=== PATIENT | female | born 1940 | race Caucasian/White ===

== ENCOUNTER → 2017-04-26 | Outpatient (CLI) | payer MEDICARE, OTHER ==
[2017-04-26 12:08] LABS: Basophils # (auto) 0.1 uL; Basophils % (auto) 1.1 % (0.0-2.0); Eosinophils # (auto) 0.2 uL; Eosinophils % (auto) 3.8 % (0.0-7.0); Hematocrit 40.3 % (36.0-46.0); Hemoglobin 13.8 g/dL (12.2-16.2); Lymphocytes # (auto) 1.2 uL; Mean Corpuscular Hemoglobin 32.1 pg (28.0-32.0); Mean Corpuscular Hgb Conc. 34.1 g/dL (32.0-36.0); Mean Corpuscular Volume 93.9 fL (80.0-100.0); Monocytes # (auto) 0.4 uL; Monocytes % (auto) 6.2 % (0.0-12.0); Neutrophils # (auto) 4.1 uL; Neutrophils % (auto) 68.9 % (37.0-80.0); Platelet Count (auto) 137 10^3/uL (140-450); Red Cell Distribution Width 13.3 % (11.8-14.3)
[2017-04-26 12:23] LABS: Albumin 4.2 g/dL (3.4-5.0); BUN/Creatinine Ratio 11.9; Bilirubin, Total 1.2 mg/dL (0.2-1.0); Calcium 9.3 mg/dL (8.5-10.1); Potassium 3.2 mmol/L (3.5-5.1); Total Protein 7.7 g/dL (6.4-8.2)
== END | disposition home or self-care (01) ==
LOC: LAB 10:49
PROVIDERS: ATTEND Internal Medicine
DX: E10.9 Type 1 diabetes mellitus without complications (principal); I10 Essential (primary) hypertension
CPT/HCPCS: 36415; 80053; 80061; 82043; 82607; 83036; 84439; 84443; 85025; 85652

== ENCOUNTER → 2017-11-30 | Outpatient (CLI) | payer MEDICARE, OTHER ==
[2017-11-30 15:13] LABS: Basophils # (auto) 0.1 uL; Basophils % (auto) 0.9 % (0.0-2.0); Eosinophils # (auto) 0.1 uL; Eosinophils % (auto) 1.5 % (0.0-7.0); Hematocrit 38.9 % (36.0-46.0); Hemoglobin 13.5 g/dL (12.2-16.2); Lymphocytes # (auto) 1.1 uL; Lymphocytes % (auto) 12.6 % (10.0-50.0); Mean Corpuscular Hemoglobin 32.7 pg (28.0-32.0); Mean Corpuscular Hgb Conc. 34.6 g/dL (32.0-36.0); Mean Corpuscular Volume 94.3 fL (80.0-100.0); Monocytes # (auto) 0.4 uL; Monocytes % (auto) 4.7 % (0.0-12.0); Neutrophils # (auto) 6.8 uL; Neutrophils % (auto) 80.3 % (37.0-80.0); Nucleated Red Blood Cells % 0.1 %; Platelet Count (auto) 148 10^3/uL (140-450); Red Blood Cells 4.13 10^6/uL (4.0-5.20); Red Cell Distribution Width 14.5 % (11.8-14.3); White Blood Cell 8.5 10^3/uL (4.4-10.8)
[2017-11-30 15:35] LABS: Albumin 3.9 g/dL (3.4-5.0); BUN/Creatinine Ratio 11.6; Bilirubin, Total 0.7 mg/dL (0.2-1.0); Calcium 7.9 mg/dL (8.5-10.1); Potassium 3.8 mmol/L (3.5-5.1); Total Protein 7.2 g/dL (6.4-8.2)
== END | disposition home or self-care (01) ==
LOC: LAB 14:41
PROVIDERS: ATTEND Internal Medicine
DX: K21.9 Gastro-esophageal reflux disease without esophagitis (principal); E11.22 Type 2 diabetes mellitus with diabetic chronic kidney disease; N18.3 Chronic kidney disease, stage 3 (moderate)
CPT/HCPCS: 36415; 80053; 83036; 84439; 84443; 85025

== ENCOUNTER → 2018-05-09 | Outpatient (CLI) | payer MEDICARE, OTHER ==
[2018-05-09 11:08] LABS: Basophils # (auto) 0.1 uL; Basophils % (auto) 1.3 % (0.0-2.0); Eosinophils # (auto) 0.1 uL; Eosinophils % (auto) 2.9 % (0.0-7.0); Lymphocytes # (auto) 1.1 uL; Lymphocytes % (auto) 28.1 % (10.0-50.0); Mean Corpuscular Hgb Conc. 33.2 g/dL (32.0-36.0); Mean Corpuscular Volume 93.4 fL (80.0-100.0); Monocytes # (auto) 0.3 uL; Monocytes % (auto) 7.6 % (0.0-12.0); Neutrophils # (auto) 2.4 uL; Neutrophils % (auto) 60.1 % (37.0-80.0); Platelet Count (auto) 141 10^3/uL (140-450); Red Cell Distribution Width 14.5 % (11.8-14.3); White Blood Cell 4.1 10^3/uL (4.4-10.8)
[2018-05-09 11:34] LABS: Albumin 4.1 g/dL (3.4-5.0); Potassium 3.9 mmol/L (3.5-5.1)
[2018-05-09 11:35] LABS: Urine Bacteria MOD /hpf (None Seen); Urine Blood Negative /uL (Negative); Urine WBC 10 /hpf (0 - 5)
[2018-05-09 11:38] LABS: BUN/Creatinine Ratio 13.6; Bilirubin, Total 0.8 mg/dL (0.2-1.0); Total Protein 7.4 g/dL (6.4-8.2)
[2018-05-09 11:42] LABS: Free T4 (Free Thyroxine) 1.45 ng/dL (0.89-1.76)
== END | disposition home or self-care (01) ==
LOC: LAB 10:07
PROVIDERS: ATTEND Internal Medicine
DX: E11.40 Type 2 diabetes mellitus with diabetic neuropathy, unspecified (principal)
CPT/HCPCS: 36415; 80053; 80061; 81001; 82043; 82607; 83036; 84439; 84443; 85025; 85652

== ENCOUNTER → 2018-09-11 | Outpatient (CLI) | payer MEDICARE, OTHER ==
[2018-09-11 12:49] LABS: Albumin 4.1 g/dL (3.4-5.0); Calcium 8.9 mg/dL (8.5-10.1); Potassium 4.2 mmol/L (3.5-5.1)
[2018-09-11 12:52] LABS: BUN/Creatinine Ratio 13.8; Total Protein 7.5 g/dL (6.4-8.2)
== END | disposition home or self-care (01) ==
LOC: LAB 10:35
PROVIDERS: ATTEND Internal Medicine
DX: E11.22 Type 2 diabetes mellitus with diabetic chronic kidney disease (principal); N18.3 Chronic kidney disease, stage 3 (moderate); E78.5 Hyperlipidemia, unspecified
CPT/HCPCS: 36415; 80053; 83036; 83721

== ENCOUNTER → 2019-06-13 | Outpatient (CLI) | payer MEDICARE, OTHER ==
[2019-06-13 10:46] LABS: Basophils # (auto) 0.1 uL; Basophils % (auto) 1.3 % (0.0-2.0); Eosinophils # (auto) 0.2 uL; Eosinophils % (auto) 3.8 % (0.0-7.0); Hematocrit 41.9 % (36.0-46.0); Hemoglobin 14.2 g/dL (12.2-16.2); Lymphocytes # (auto) 1.1 uL; Lymphocytes % (auto) 22.7 % (10.0-50.0); Mean Corpuscular Hemoglobin 31.9 pg (28.0-32.0); Mean Corpuscular Hgb Conc. 33.8 g/dL (32.0-36.0); Mean Corpuscular Volume 94.5 fL (80.0-100.0); Monocytes # (auto) 0.3 uL; Monocytes % (auto) 6.3 % (0.0-12.0); Neutrophils # (auto) 3.2 uL; Neutrophils % (auto) 65.9 % (37.0-80.0); Nucleated Red Blood Cells % 0.1 %; Platelet Count (auto) 157 10^3/uL (140-450); Red Blood Cells 4.44 10^6/uL (4.0-5.20); Red Cell Distribution Width 13.6 % (11.8-14.3); White Blood Cell 4.9 10^3/uL (4.4-10.8)
[2019-06-13 10:52] LABS: Calcium 8.9 mg/dL (8.5-10.1); Potassium 3.4 mmol/L (3.5-5.1)
[2019-06-13 10:56] LABS: Urine Bacteria MOD /hpf (None Seen); Urine Blood Negative /uL (Negative); Urine Specific Gravity 1.016 (1.001-1.035); Urine WBC 29 /hpf (0 - 5)
[2019-06-13 10:58] LABS: BUN/Creatinine Ratio 11.9; Bilirubin, Total 0.8 mg/dL (0.2-1.0); Total Protein 7.3 g/dL (6.4-8.2); Uric Acid 5.4 mg/dL (2.6-6.0)
== END | disposition home or self-care (01) ==
LOC: LAB 10:11
PROVIDERS: ATTEND Internal Medicine
DX: E11.9 Type 2 diabetes mellitus without complications (principal)
CPT/HCPCS: 36415; 80053; 80061; 81001; 82043; 83615; 84439; 84443; 84550; 85025; 85652

== ENCOUNTER → 2019-10-09 | Outpatient (CLI) | payer MEDICARE, OTHER | END | disposition home or self-care (01) | LOC: LAB 13:01 | PROVIDERS: ATTEND Internal Medicine | DX: E11.40 Type 2 diabetes mellitus with diabetic neuropathy, unspecified (principal); I10 Essential (primary) hypertension | CPT/HCPCS: 36415; 82607; 83036 ==

== ENCOUNTER → 2020-05-27 | Outpatient (CLI) | payer MEDICARE, OTHER ==
[2020-05-27 10:42] LABS: Basophils # (auto) 0.1 10 ^3/uL (0-0.2); Basophils % (auto) 1.9 % (0.0-2.0); Eosinophils # (auto) 0.1 10 ^3/uL (0-0.8); Eosinophils % (auto) 3.1 % (0.0-7.0); Hematocrit 41.4 % (36.0-46.0); Hemoglobin 13.9 g/dL (12.2-16.2); Lymphocytes # (auto) 1.3 10 ^3/uL (0.4-5.4); Lymphocytes % (auto) 33.9 % (10.0-50.0); Mean Corpuscular Hemoglobin 32.2 pg (28.0-32.0); Mean Corpuscular Hgb Conc. 33.6 g/dL (32.0-36.0); Monocytes # (auto) 0.3 10 ^3/uL (0-1.3); Monocytes % (auto) 7.4 % (0.0-12.0); Neutrophils % (auto) 53.7 % (37.0-80.0); Nucleated Red Blood Cells % 0.1 %; Platelet Count (auto) 143 10^3/uL (140-450); Red Blood Cells 4.31 10^6/uL (4.0-5.20); Red Cell Distribution Width 13.7 % (11.8-14.3); White Blood Cell 3.8 10^3/uL (4.4-10.8)
[2020-05-27 10:53] LABS: Urine Bacteria FEW /hpf (None Seen); Urine Blood Negative /uL (Negative); Urine Specific Gravity 1.016 (1.001-1.035); Urine WBC 42 /hpf (0 - 5)
[2020-05-27 11:02] LABS: Calcium 8.1 mg/dL (8.5-10.1); Potassium 3.6 mmol/L (3.5-5.1); Uric Acid 6.6 mg/dL (2.6-6.0)
[2020-05-27 11:08] LABS: BUN/Creatinine Ratio 11.5; Total Protein 7.2 g/dL (6.4-8.2)
== END | disposition home or self-care (01) ==
LOC: LAB 10:19
PROVIDERS: ATTEND Internal Medicine
DX: I10 Essential (primary) hypertension (principal); E11.40 Type 2 diabetes mellitus with diabetic neuropathy, unspecified
CPT/HCPCS: 36415; 80053; 80061; 81001; 82043; 83036; 83970; 84439; 84443; 84550; 85025; 85652

== ENCOUNTER → 2020-09-16 | Outpatient (CLI) | payer MEDICARE, OTHER ==
[2020-09-16 13:46] LABS: Basophils # (auto) 0.1 10 ^3/uL (0-0.2); Basophils % (auto) 1.4 % (0.0-2.0); Eosinophils # (auto) 0.1 10 ^3/uL (0-0.8); Eosinophils % (auto) 2.8 % (0.0-7.0); Hematocrit 41.1 % (36.0-46.0); Lymphocytes # (auto) 1.3 10 ^3/uL (0.4-5.4); Lymphocytes % (auto) 26.1 % (10.0-50.0); Mean Corpuscular Hemoglobin 33.3 pg (28.0-32.0); Mean Corpuscular Hgb Conc. 34.2 g/dL (32.0-36.0); Mean Corpuscular Volume 97.3 fL (80.0-100.0); Monocytes # (auto) 0.3 10 ^3/uL (0-1.3); Monocytes % (auto) 6.8 % (0.0-12.0); Neutrophils # (auto) 3.2 10 ^3/uL (1.6-8.6); Neutrophils % (auto) 62.9 % (37.0-80.0); Nucleated Red Blood Cells % 0.2 %; Platelet Count (auto) 131 10^3/uL (140-450); Red Blood Cells 4.22 10^6/uL (4.0-5.20); Red Cell Distribution Width 12.9 % (11.8-14.3)
[2020-09-16 13:57] LABS: Albumin 4.2 g/dL (3.4-5.0); Calcium 8.7 mg/dL (8.5-10.1)
[2020-09-16 14:00] LABS: BUN/Creatinine Ratio 13.6; Bilirubin, Total 0.8 mg/dL (0.2-1.0); Total Protein 7.4 g/dL (6.4-8.2)
== END | disposition home or self-care (01) ==
LOC: LAB 12:33
PROVIDERS: ATTEND Internal Medicine
DX: C50.911 Malignant neoplasm of unspecified site of right female breast (principal); Z88.5 Allergy status to narcotic agent
CPT/HCPCS: 36415; 80053; 83615; 85025; 86300

== ENCOUNTER → 2020-10-05 | Outpatient (CLI) | payer MEDICARE, OTHER | END | disposition home or self-care (01) | LOC: XYW 08:14 | PROVIDERS: ATTEND Internal Medicine | DX: C50.912 Malignant neoplasm of unspecified site of left female breast (principal); E11.9 Type 2 diabetes mellitus without complications; I10 Essential (primary) hypertension; E03.9 Hypothyroidism, unspecified; E78.00 Pure hypercholesterolemia, unspecified; N63.20 Unspecified lump in the left breast, unspecified quadrant; Z88.5 Allergy status to narcotic agent; Z80.8 Family history of malignant neoplasm of other organs or systems; Z90.710 Acquired absence of both cervix and uterus; Z12.31 Encounter for screening mammogram for malignant neoplasm of breast; Z98.890 Other specified postprocedural states; Z79.899 Other long term (current) drug therapy; Z96.89 Presence of other specified functional implants | CPT/HCPCS: 10022; 38505; 76881; 76942; 77067 ==

== ENCOUNTER 2020-10-27 07:04 | Inpatient (IN) | payer MEDICARE, OTHER ==
[2020-10-22 12:36] LABS: Urine Bacteria FEW /hpf (None Seen); Urine Blood Negative /uL (Negative); Urine Specific Gravity 1.014 (1.001-1.035); Urine WBC 13 /hpf (0 - 5)
[2020-10-22 12:37] LABS: Basophils # (auto) 0.1 10 ^3/uL (0-0.2); Basophils % (auto) 1.1 % (0.0-2.0); Eosinophils # (auto) 0.1 10 ^3/uL (0-0.8); Eosinophils % (auto) 2.3 % (0.0-7.0); Hematocrit 42.3 % (36.0-46.0); Hemoglobin 14.4 g/dL (12.2-16.2); Lymphocytes # (auto) 1.6 10 ^3/uL (0.4-5.4); Lymphocytes % (auto) 29.7 % (10.0-50.0); Mean Corpuscular Hemoglobin 32.8 pg (28.0-32.0); Mean Corpuscular Hgb Conc. 33.9 g/dL (32.0-36.0); Mean Corpuscular Volume 96.6 fL (80.0-100.0); Monocytes # (auto) 0.4 10 ^3/uL (0-1.3); Monocytes % (auto) 6.9 % (0.0-12.0); Neutrophils # (auto) 3.2 10 ^3/uL (1.6-8.6); Nucleated Red Blood Cells % 0.1 %; Platelet Count (auto) 139 10^3/uL (140-450); Red Blood Cells 4.38 10^6/uL (4.0-5.20); Red Cell Distribution Width 12.9 % (11.8-14.3); White Blood Cell 5.3 10^3/uL (4.4-10.8)
[2020-10-22 12:47] LABS: INR 1.07 (0.9-1.15); Partial Thromboplastin Time 25.9 sec (23.0-31.2)
[2020-10-22 13:04] LABS: Potassium 4.2 mmol/L (3.5-5.1)
[2020-10-22 13:10] LABS: Albumin 4.1 g/dL (3.4-5.0); BUN/Creatinine Ratio 13.4; Bilirubin, Total 0.7 mg/dL (0.2-1.0); Calcium 8.7 mg/dL (8.5-10.1); Total Protein 7.1 g/dL (6.4-8.2)
[~2020-10-27] VITALS: Ht 167.6 cm; Wt 82.0 kg
[~2020-10-27 07:04] MED LIST: ATOR10TA PO; CALC-386 PO; GABA300C10 PO; LEVO112T4 PO; METO-289 PO; MULT-195 EACHEYE; POTA10TA32 PO; RAMI10CA38 PO
[2020-10-27] MEDS ORDERED: ceFAZolin 1GM/50ML 100 ML IV ONE (08:01)
[2020-10-27] MEDS ORDERED: fentaNYL CITRATE 100 MCG/2 ML VL ONE (09:07)
[2020-10-27] MEDS ORDERED: MIDAZOLAM HCL 1MG/1ML-2 ML VIAL ONE (09:07)
[2020-10-27] MEDS ORDERED: MEPERIDINE HCL (50 MG/ML) 1 ML VIAL ONE (09:08)
[2020-10-27] MEDS ORDERED: DexAMETHasone SOD PHOS 10MG/1ML VIAL INJ ONE (09:42)
[2020-10-27] MEDS ORDERED: diphenhdrAMINE HCL 50 MG/1 ML VL ONE (09:42)
[2020-10-27] MEDS ORDERED: BUPIVACAINE 0.5% MPF INJ 30ML SDV IJ ONE (09:52)
[2020-10-27] MEDS ORDERED: LABETALOL HCL 5 MG/ML 4ML SYRINGE IV PRN (10:00)
[2020-10-27] MEDS ORDERED: ePHEDrine SULFATE 50 MG/ML AMP IV PRN (10:00)
[2020-10-27] MEDS ORDERED: MORPHINE SULFATE 4 MG/ML SYR/VIAL IV PRN (10:00)
[2020-10-27] MEDS ORDERED: ONDANSETRON HCL 4 MG/2 ML VIAL IV PRN ×2 (10:00→12:00)
[2020-10-27] MEDS ORDERED: HYDROmorphone HCL 2 MG/ML VL IV PRN (10:00)
[2020-10-27] MEDS ORDERED: MIDAZOLAM HCL 1MG/1ML-2 ML VIAL IV PRN (10:00)
[2020-10-27] MEDS ORDERED: BUPIVACAINE W/ EPINEPH 0.5% MPF 30ML VIAL IJ ONE (10:15)
[2020-10-27] MEDS: hydrALAZINE HCL 20 MG/ML VL IV PRN ×2 (11:50→12:00)
[2020-10-27] MEDS ORDERED: SUCCINYLCHOLINE CHLORIDE 20 MG/ML 10ML VIAL IV ONE (12:01)
[2020-10-27] MEDS ORDERED: PHENYLEPHRINE HCL 10 MG/ML VL IV ONE (12:01)
[2020-10-27] MEDS ORDERED: ETOMIDATE (2MG/ML) 20ML VIAL IV ONE (12:01)
[2020-10-27] MEDS ORDERED: NITROGLYCERIN 0.4 MG SL TAB SL PRN (14:45)
[2020-10-27] MEDS ORDERED: HYDROcodone-ACET 5/325MG TAB PO PRN (14:45)
[2020-10-27] MEDS ORDERED: MORPHINE SULF INJ 2 MG/ML SYRINGE 1ML IV PRN (14:45)
[2020-10-27 15:49] VITALS: BP 167/70
[2020-10-27 16:01] VITALS: BP 167/70
[2020-10-27] MEDS: ceFAZolin 1GM/50ML 50 ML IV SCH ×2 (16:14→22:01)
[2020-10-27] MEDS: D5W/SOD CHL 0.45%/KCL 20MEQ 1,000 ML IV SCH (16:14)
[2020-10-27 16:30] VITALS: BP 136/62
[2020-10-27 16:56] VITALS: BP 156/70
[2020-10-27 17:15] VITALS: BP 145/60
[2020-10-27] MEDS: MORPHINE SULF INJ 2 MG/ML SYRINGE 1ML IV PRN (20:16)
[2020-10-27 21:40] VITALS: BP_SYST 161; BP_SYST 92; BP_DIAS 62; BP_DIAS 65
[2020-10-27] MEDS ORDERED: hydrALAZINE HCL 20 MG/ML VL IV ONE (21:45)
[2020-10-27] MEDS ORDERED: ATORVASTATIN 20 MG TAB PO SCH (22:00)
[2020-10-27] MEDS: GABAPENTIN 400 MG CAP PO SCH (22:02)
[2020-10-28] MEDS: MORPHINE SULF INJ 2 MG/ML SYRINGE 1ML IV PRN (00:17)
[2020-10-28] MEDS: D5W/SOD CHL 0.45%/KCL 20MEQ 1,000 ML IV SCH (01:20)
[2020-10-28 05:00] VITALS: BP 157/69
[2020-10-28] MEDS: ceFAZolin 1GM/50ML 50 ML IV SCH ×2 (06:14→13:54)
[2020-10-28] MEDS ORDERED: LEVOTHYROXINE SODIUM 100 MCG TAB PO SCH (07:00)
[2020-10-28 09:00] VITALS: BP 126/62
[2020-10-28] MEDS: GABAPENTIN 400 MG CAP PO SCH ×2 (09:04→09:17)
[2020-10-28] MEDS ORDERED: RAMIPRIL 10 MG CAP PO SCH (10:00)
[2020-10-28] MEDS ORDERED: METOPROLOL SUCCINATE XL 50 MG TAB PO SCH (10:00)
[2020-10-28] MEDS ORDERED: PANTOPRAZOLE 40 MG/10 ML VIAL INJ IV SCH (10:00)
[2020-10-28] MEDS ORDERED: CEPH-322 PO (11:24)
== END 2020-10-28 16:45 | disposition home health service (06) | DRG 583 ==
LOC: SUR 07:04 → TELE 14:31 → TELE-WESTW 15:27
PROVIDERS: ADMIT Nurse Practitioner Acute Care; ATTEND Internal Medicine
PROC: 0HTT0ZZ Resection of Right Breast, Open Approach (ICD-10-PCS; principal; 2020-10-27 09:13)
DX: C50.911 Malignant neoplasm of unspecified site of right female breast (principal); E03.9 Hypothyroidism, unspecified; I10 Essential (primary) hypertension; E78.5 Hyperlipidemia, unspecified; Z20.822 Contact with and (suspected) exposure to COVID-19; R59.0 Localized enlarged lymph nodes; Z95.0 Presence of cardiac pacemaker; Z88.5 Allergy status to narcotic agent; Z85.3 Personal history of malignant neoplasm of breast; Z90.12 Acquired absence of left breast and nipple
CPT/HCPCS: 36415; 80053; 81001; 85025; 85610; 85730; C9113; G0378; J0330; J0690; J1100; J2250; J2405; J3490

== ENCOUNTER → 2020-11-17 | Outpatient (CLI) | payer MEDICARE, OTHER ==
[~2020-11-17] MED LIST changes: +CEPH-322 PO
== END | disposition home or self-care (01) ==
LOC: LAB 15:39
PROVIDERS: ATTEND Nurse Practitioner
DX: D05.11 Intraductal carcinoma in situ of right breast (principal); Z90.11 Acquired absence of right breast and nipple

== ENCOUNTER 2020-11-24 06:52 | Day surgery (SDC) | payer MEDICARE, OTHER ==
[2020-11-23 16:41] LABS: Basophils # (auto) 0.1 10 ^3/uL (0-0.2); Eosinophils # (auto) 0.3 10 ^3/uL (0-0.8); Eosinophils % (auto) 3.8 % (0.0-7.0); Hematocrit 37.9 % (36.0-46.0); Lymphocytes # (auto) 1.4 10 ^3/uL (0.4-5.4); Lymphocytes % (auto) 21.8 % (10.0-50.0); Mean Corpuscular Hemoglobin 33.4 pg (28.0-32.0); Mean Corpuscular Hgb Conc. 34.3 g/dL (32.0-36.0); Mean Corpuscular Volume 97.5 fL (80.0-100.0); Monocytes # (auto) 0.5 10 ^3/uL (0-1.3); Monocytes % (auto) 6.9 % (0.0-12.0); Neutrophils # (auto) 4.4 10 ^3/uL (1.6-8.6); Neutrophils % (auto) 66.5 % (37.0-80.0); Nucleated Red Blood Cells % 0.2 %; Platelet Count (auto) 206 10^3/uL (140-450); Red Blood Cells 3.89 10^6/uL (4.0-5.20); Red Cell Distribution Width 14.2 % (11.8-14.3); White Blood Cell 6.6 10^3/uL (4.4-10.8)
[2020-11-23 17:01] LABS: Albumin 3.5 g/dL (3.4-5.0); Calcium 8.9 mg/dL (8.5-10.1); Potassium 4.6 mmol/L (3.5-5.1)
[2020-11-23 17:03] LABS: BUN/Creatinine Ratio 16.4; Bilirubin, Total 0.4 mg/dL (0.2-1.0); Total Protein 6.6 g/dL (6.4-8.2)
[2020-11-23 17:06] LABS: INR 1.07 (0.9-1.15); Partial Thromboplastin Time 25.8 sec (23.0-31.2)
[~2020-11-24] VITALS: Ht 170.2 cm; Wt 83.5 kg
[2020-11-24] MEDS ORDERED: LIDOCAINE W/ EPINEPHRINE 1% 20ML VIAL ONE (09:12)
[2020-11-24] MEDS ORDERED: BUPIVACAINE 0.25% INJ 50ML VIAL ONE (09:12)
[2020-11-24] MEDS ORDERED: ceFAZolin 1GM/50ML 50 ML IV ONE (09:19)
[2020-11-24] MEDS ORDERED: fentaNYL CITRATE 100 MCG/2 ML VL ONE (09:22)
[2020-11-24] MEDS ORDERED: PROPOFOL 10 MG/ML 20 ML IV ONE (09:23)
[2020-11-24] MEDS ORDERED: ONDANSETRON HCL 4 MG/2 ML VIAL ONE (09:53)
[2020-11-24] MEDS ORDERED: LABETALOL HCL 5 MG/ML ML 20ML VIAL IV ONE (09:53)
[2020-11-24] MEDS ORDERED: POVIDONE IODINE 10 % TOPICAL OINT 30GM TOP ONE (09:59)
[2020-11-24] MEDS ORDERED: LABETALOL HCL 5 MG/ML 4ML SYRINGE IV PRN (10:15)
[2020-11-24] MEDS ORDERED: MORPHINE SULFATE 4 MG/ML SYR/VIAL IV PRN ×2 (10:15)
[2020-11-24 10:44] VITALS: BP 149/81
== END 2020-11-24 11:00 | disposition home or self-care (01) ==
LOC: SUR 06:52
PROVIDERS: ATTEND Surgery
DX: N64.89 Other specified disorders of breast (principal); I10 Essential (primary) hypertension; E11.9 Type 2 diabetes mellitus without complications; I48.91 Unspecified atrial fibrillation; I49.9 Cardiac arrhythmia, unspecified; E66.9 Obesity, unspecified; Z20.822 Contact with and (suspected) exposure to COVID-19; Z88.5 Allergy status to narcotic agent; Z98.890 Other specified postprocedural states; Z85.3 Personal history of malignant neoplasm of breast; Z68.28 Body mass index [BMI] 28.0-28.9, adult; Z90.710 Acquired absence of both cervix and uterus; Z80.0 Family history of malignant neoplasm of digestive organs
CPT/HCPCS: 10140; 36415; 80053; 85025; 85610; 85730; J0690; J2405; J2704; J3010; J3490; U0003

== ENCOUNTER → 2021-02-08 | Outpatient (CLI) | payer MEDICARE ==
[2021-02-08 13:30] LABS: Cholesterol 124 mg/dL (< 200); HDL Cholesterol 44 mg/dL (40-59); LDL Cholesterol 65 mg/dL (< 100); Triglycerides 141 mg/dL (< 150)
== END | disposition home or self-care (01) ==
LOC: LAB 12:01
PROVIDERS: ATTEND Internal Medicine
DX: E11.9 Type 2 diabetes mellitus without complications (principal); E78.00 Pure hypercholesterolemia, unspecified
CPT/HCPCS: 36415; 80061; 83036

== ENCOUNTER → 2021-06-09 | Outpatient (CLI) | payer MEDICARE ==
[2021-06-09 12:09] LABS: Basophils # (auto) 0.1 10 ^3/uL (0-0.2); Basophils % (auto) 1.4 % (0.0-2.0); Eosinophils # (auto) 0.1 10 ^3/uL (0-0.8); Hematocrit 38.2 % (36.0-46.0); Lymphocytes # (auto) 1.1 10 ^3/uL (0.4-5.4); Lymphocytes % (auto) 26.3 % (10.0-50.0); Mean Corpuscular Hemoglobin 33.3 pg (28.0-32.0); Mean Corpuscular Volume 97.8 fL (80.0-100.0); Monocytes # (auto) 0.3 10 ^3/uL (0-1.3); Monocytes % (auto) 7.2 % (0.0-12.0); Neutrophils # (auto) 2.6 10 ^3/uL (1.6-8.6); Neutrophils % (auto) 62.1 % (37.0-80.0); Nucleated Red Blood Cells % 0.2 %; Red Blood Cells 3.91 10^6/uL (4.0-5.20); Red Cell Distribution Width 13.4 % (11.8-14.3); White Blood Cell 4.3 10^3/uL (4.4-10.8)
[2021-06-09 13:07] LABS: Albumin 3.9 g/dL (3.4-5.0); Calcium 9.4 mg/dL (8.5-10.1); Potassium 4.9 mmol/L (3.5-5.1); Uric Acid 6.2 mg/dL (2.6-6.0)
[2021-06-09 13:11] LABS: BUN/Creatinine Ratio 14.5; Bilirubin, Total 0.7 mg/dL (0.2-1.0); Total Protein 6.6 g/dL (6.4-8.2)
== END | disposition home or self-care (01) ==
LOC: LAB 11:43
PROVIDERS: ATTEND Internal Medicine
DX: E11.22 Type 2 diabetes mellitus with diabetic chronic kidney disease (principal); N18.30 Chronic kidney disease, stage 3 unspecified
CPT/HCPCS: 36415; 80053; 83036; 84439; 84443; 84550; 85025

== ENCOUNTER → 2021-09-08 | Outpatient (CLI) | payer MEDICARE | END | disposition home or self-care (01) | LOC: LAB 08:14 | PROVIDERS: ATTEND Internal Medicine | DX: E11.9 Type 2 diabetes mellitus without complications (principal) | CPT/HCPCS: 36415; 83036 ==

== ENCOUNTER → 2022-04-20 | Outpatient (CLI) | payer MEDICARE, BC ==
[2022-04-20 11:00] LABS: Basophils # (auto) 0.1 10 ^3/uL (0-0.2); Basophils % (auto) 1.7 % (0.0-2.0); Eosinophils # (auto) 0.1 10 ^3/uL (0-0.8); Eosinophils % (auto) 2.6 % (0.0-7.0); Hematocrit 41.3 % (36.0-46.0); Hemoglobin 14.1 g/dL (12.2-16.2); Lymphocytes # (auto) 1.2 10 ^3/uL (0.4-5.4); Mean Corpuscular Hgb Conc. 34.1 g/dL (32.0-36.0); Mean Corpuscular Volume 96.6 fL (80.0-100.0); Monocytes # (auto) 0.3 10 ^3/uL (0-1.3); Monocytes % (auto) 7.1 % (0.0-12.0); Neutrophils # (auto) 2.5 10 ^3/uL (1.6-8.6); Neutrophils % (auto) 60.6 % (37.0-80.0); Red Blood Cells 4.28 10^6/uL (4.0-5.20); Red Cell Distribution Width 13.8 % (11.8-14.3); White Blood Cell 4.2 10^3/uL (4.4-10.8)
[2022-04-20 11:25] LABS: Urine Bacteria FEW /hpf (None Seen); Urine Blood Negative /uL (Negative); Urine Specific Gravity 1.017 (1.001-1.035); Urine WBC 3 /hpf (0 - 5)
[2022-04-20 11:57] LABS: Calcium 9.2 mg/dL (8.5-10.1); Potassium 4.7 mmol/L (3.5-5.1)
[2022-04-20 12:03] LABS: BUN/Creatinine Ratio 12.8; Bilirubin, Total 1.1 mg/dL (0.2-1.0); Total Protein 6.5 g/dL (6.4-8.2); Uric Acid 6.4 mg/dL (2.6-6.0)
[2022-04-20 12:06] LABS: Free T4 (Free Thyroxine) 1.65 ng/dL (0.89-1.76)
== END | disposition home or self-care (01) ==
LOC: LAB 10:08
PROVIDERS: ATTEND Internal Medicine
DX: E11.9 Type 2 diabetes mellitus without complications (principal); I10 Essential (primary) hypertension; Z85.3 Personal history of malignant neoplasm of breast
CPT/HCPCS: 36415; 80053; 80061; 81001; 82043; 82607; 83036; 83970; 84439; 84443; 84550; 85025; 85652; 86300

== ENCOUNTER → 2022-10-03 | Outpatient (CLI) | payer MEDICARE, BC ==
[2022-10-03 11:24] LABS: Basophils # (auto) 0.1 10 ^3/uL (0-0.2); Basophils % (auto) 1.2 % (0.0-2.0); Eosinophils # (auto) 0.2 10 ^3/uL (0-0.8); Eosinophils % (auto) 3.4 % (0.0-7.0); Hematocrit 40.9 % (36.0-46.0); Hemoglobin 13.6 g/dL (12.2-16.2); Lymphocytes # (auto) 1.4 10 ^3/uL (0.4-5.4); Lymphocytes % (auto) 27.2 % (10.0-50.0); Mean Corpuscular Hgb Conc. 33.3 g/dL (32.0-36.0); Mean Corpuscular Volume 96.1 fL (80.0-100.0); Monocytes # (auto) 0.4 10 ^3/uL (0-1.3); Monocytes % (auto) 7.2 % (0.0-12.0); Neutrophils # (auto) 3.1 10 ^3/uL (1.6-8.6); Nucleated Red Blood Cells % 0.2 %; Red Blood Cells 4.26 10^6/uL (4.0-5.20); Red Cell Distribution Width 13.9 % (11.8-14.3); White Blood Cell 5.1 10^3/uL (4.4-10.8)
[2022-10-03 12:15] LABS: Potassium 4.7 mmol/L (3.5-5.1)
[2022-10-03 12:28] LABS: Albumin 3.7 g/dL (3.4-5.0); BUN/Creatinine Ratio 16.5 (10.0-20.0); Bilirubin, Total 1.1 mg/dL (0.2-1.0); Calcium 8.6 mg/dL (8.5-10.1); Total Protein 6.7 g/dL (6.4-8.2); Uric Acid 6.1 mg/dL (2.6-6.0)
== END | disposition home or self-care (01) ==
LOC: LAB 10:53
PROVIDERS: ATTEND Internal Medicine
DX: I12.9 Hypertensive chronic kidney disease with stage 1 through stage 4 chronic kidney disease, or unspecified chronic kidney disease (principal); E11.22 Type 2 diabetes mellitus with diabetic chronic kidney disease; N18.30 Chronic kidney disease, stage 3 unspecified
CPT/HCPCS: 36415; 80053; 83036; 83721; 84443; 84550; 85025

== ENCOUNTER → 2023-03-16 | Emergency (ER) | payer MEDICARE, BC ==
[~2023-03-16] VITALS: Ht 167.6 cm; Wt 81.8 kg
[~2023-03-16] MED LIST changes: +ACETAMINOPHEN 325 MG TAB PO ONE; -CEPH-322 PO; +CEPH250C PO; +GABA-1250 PO; -GABA300C10 PO; +MECLIZINE HCL 25 MG TAB PO ONE; +METOPROLOL TARTRATE 1MG/1ML-5ML VIAL IV ONE; +POTA-228 PO; -POTA10TA32 PO
[2023-03-16 13:36] LABS: Basophils # (auto) 0.1 10 ^3/uL (0-0.2); Eosinophils # (auto) 0.1 10 ^3/uL (0-0.8); Eosinophils % (auto) 1.6 % (0.0-7.0); Hematocrit 41.1 % (36.0-46.0); Lymphocytes # (auto) 0.9 10 ^3/uL (0.4-5.4); Lymphocytes % (auto) 13.6 % (10.0-50.0); Mean Corpuscular Hemoglobin 33.5 pg (28.0-32.0); Mean Corpuscular Hgb Conc. 34.1 g/dL (32.0-36.0); Mean Corpuscular Volume 98.5 fL (80.0-100.0); Monocytes # (auto) 0.4 10 ^3/uL (0-1.3); Monocytes % (auto) 6.4 % (0.0-12.0); Neutrophils # (auto) 5.2 10 ^3/uL (1.6-8.6); Neutrophils % (auto) 77.4 % (37.0-80.0); Nucleated Red Blood Cells % 0.1 %; Red Blood Cells 4.18 10^6/uL (4.0-5.20); Red Cell Distribution Width 13.8 % (11.8-14.3); White Blood Cell 6.7 10^3/uL (4.4-10.8)
[2023-03-16 13:51] LABS: Alanine Aminotransferase 18 U/L (7-40); Albumin 4.2 g/dL (3.2-4.8); Alkaline Phosphatase 53 U/L (46-116); Anion Gap 9 (5-15); Aspartate Aminotransferase 17 U/L (13-40); BUN/Creatinine Ratio 9.1 (10.0-20.0); Blood Urea Nitrogen 11 mg/dL (9-23); Calcium 9.3 mg/dL (8.7-10.4); Carbon Dioxide 21 mmol/L (20-30); Chloride 106 mmol/L (98-107); Glucose 152 mg/dL (74-106); Potassium 4.5 mmol/L (3.5-5.1); Sodium 136 mmol/L (136-145); Total Protein 6.6 g/dL (5.7-8.2)
[2023-03-16 14:41] LABS: Bilirubin, Total 1.2 mg/dL (0.2-1.0)
[2023-03-16 14:59] VITALS: PULSE 65; RESP 20; O2SAT 96
[2023-03-16 17:00] VITALS: TEMP 98.1
[2023-03-16 18:12] LABS: Urine Bacteria FEW /hpf (None Seen); Urine Blood Negative /uL (Negative); Urine Clarity Clear (Clear); Urine Color Colorless (Yellow); Urine Hyaline Cast FEW /lpf (0 - 2); Urine Protein, UAD Negative (Negative); Urine Specific Gravity 1.017 (1.001-1.035); Urine Urobilinogen Normal (Negative); Urine WBC 13 /hpf (0 - 5)
[2023-03-16 18:35] VITALS: BP 146/52; PULSE 68; RESP 20; O2SAT 96
== END | disposition short-term general hospital (02) ==
LOC: EDUNIT# 11:32 → ER 11:33 → EDBD 11:33
DX: S00.83XA Contusion of other part of head, initial encounter (principal); R51.9 Headache, unspecified; Z88.5 Allergy status to narcotic agent; Z79.899 Other long term (current) drug therapy; I10 Essential (primary) hypertension; E11.9 Type 2 diabetes mellitus without complications; I48.91 Unspecified atrial fibrillation; W18.09XA Striking against other object with subsequent fall, initial encounter; Y93.89 Activity, other specified; Y92.89 Other specified places as the place of occurrence of the external cause; Y99.8 Other external cause status
CPT/HCPCS: 36415; 70450; 72125; 80053; 81001; 85025; 96374; 99285; J8597

== ENCOUNTER → 2023-06-08 | Outpatient (CLI) | payer MEDICARE, BC ==
[~2023-06-08] MED LIST changes: -ACETAMINOPHEN 325 MG TAB PO ONE; -MECLIZINE HCL 25 MG TAB PO ONE; -METOPROLOL TARTRATE 1MG/1ML-5ML VIAL IV ONE
== END | disposition home or self-care (01) ==
LOC: Rad HDHVI 09:52
PROVIDERS: ATTEND Internal Medicine Cardiovascular Disease
DX: I08.2 Rheumatic disorders of both aortic and tricuspid valves (principal); I11.9 Hypertensive heart disease without heart failure
CPT/HCPCS: 93306

== ENCOUNTER → 2023-06-15 | Outpatient (CLI) | payer MEDICARE, BC ==
[2023-06-15 10:59] LABS: Basophils # (auto) 0 10 ^3/uL (0-0.2); Basophils % (auto) 0.4 % (0.0-2.0); Eosinophils # (auto) 0.1 10 ^3/uL (0-0.8); Eosinophils % (auto) 3.2 % (0.0-7.0); Hematocrit 41.5 % (36.0-46.0); Hemoglobin 13.8 g/dL (12.2-16.2); Lymphocytes % (auto) 22.8 % (10.0-50.0); Mean Corpuscular Hemoglobin 33.3 pg (28.0-32.0); Mean Corpuscular Hgb Conc. 33.3 g/dL (32.0-36.0); Mean Corpuscular Volume 100.1 fL (80.0-100.0); Monocytes # (auto) 0.3 10 ^3/uL (0-1.3); Monocytes % (auto) 7.2 % (0.0-12.0); Neutrophils % (auto) 66.4 % (37.0-80.0); Nucleated Red Blood Cells % 0.1 %; Red Blood Cells 4.15 10^6/uL (4.0-5.20); Red Cell Distribution Width 13.8 % (11.8-14.3); White Blood Cell 4.6 10^3/uL (4.4-10.8)
[2023-06-15 11:22] LABS: Alanine Aminotransferase 24 U/L (7-40); Albumin 4.5 g/dL (3.2-4.8); Alkaline Phosphatase 54 U/L (46-116); Anion Gap 10 (5-15); Aspartate Aminotransferase 28 U/L (13-40); BUN/Creatinine Ratio 8.1 (10.0-20.0); Bilirubin, Direct 0.4 mg/dL (<0.3); Blood Urea Nitrogen 9 mg/dL (9-23); Calcium 8.7 mg/dL (8.5-10.1); Carbon Dioxide 23 mmol/L (20-30); Chloride 107 mmol/L (98-107); Cholesterol 124 mg/dL (< 200); Glucose 121 mg/dL (74-106); HDL Cholesterol 53 mg/dL (40-59); LDL Cholesterol 59 mg/dL (< 100); Potassium 4.4 mmol/L (3.5-5.1); Sodium 140 mmol/L (136-145); Triglycerides 116 mg/dL (< 150)
[2023-06-15 11:23] LABS: Bilirubin, Total 1.2 mg/dL (0.2-1.0); Total Protein 6.7 g/dL (5.7-8.2)
== END | disposition home or self-care (01) ==
LOC: LAB 10:24
PROVIDERS: ATTEND Internal Medicine Cardiovascular Disease
DX: E11.9 Type 2 diabetes mellitus without complications (principal); I10 Essential (primary) hypertension; E55.9 Vitamin D deficiency, unspecified; R53.1 Weakness; R30.0 Dysuria; D51.3 Other dietary vitamin B12 deficiency anemia; R00.2 Palpitations; D64.9 Anemia, unspecified
CPT/HCPCS: 36415; 80048; 80061; 80076; 82306; 83036; 84443; 85025; 87086

== ENCOUNTER → 2023-07-18 | Outpatient (CLI) | payer MEDICARE, BC | END | disposition home or self-care (01) | LOC: Rad HDHVI 10:42 | PROVIDERS: ATTEND Internal Medicine Cardiovascular Disease | DX: I10 Essential (primary) hypertension (principal) | CPT/HCPCS: 93880 ==

== ENCOUNTER → 2023-11-26 | Outpatient (CLI) | payer MEDICARE, BC | END | disposition home or self-care (01) | LOC: Rad HDHVI 11:52 | PROVIDERS: ATTEND Internal Medicine Cardiovascular Disease | DX: I67.82 Cerebral ischemia (principal); R26.9 Unspecified abnormalities of gait and mobility; R42 Dizziness and giddiness | CPT/HCPCS: 70450 ==

== ENCOUNTER → 2024-01-29 | Outpatient (CLI) | payer MEDICARE, BC ==
[2024-01-29 10:32] LABS: Basophils # (auto) 0.1 10 ^3/uL (0-0.2); Basophils % (auto) 1.6 % (0.0-2.0); Eosinophils # (auto) 0.1 10 ^3/uL (0-0.8); Eosinophils % (auto) 2.4 % (0.0-7.0); Hematocrit 42.1 % (36.0-46.0); Hemoglobin 14.4 g/dL (12.2-16.2); Lymphocytes # (auto) 1.3 10 ^3/uL (0.4-5.4); Lymphocytes % (auto) 26.1 % (10.0-50.0); Mean Corpuscular Hemoglobin 33.5 pg (28.0-32.0); Mean Corpuscular Hgb Conc. 34.2 g/dL (32.0-36.0); Mean Corpuscular Volume 98.1 fL (80.0-100.0); Monocytes # (auto) 0.4 10 ^3/uL (0-1.3); Monocytes % (auto) 8.6 % (0.0-12.0); Neutrophils % (auto) 61.3 % (37.0-80.0); Red Cell Distribution Width 13.8 % (11.8-14.3); White Blood Cell 4.8 10^3/uL (4.4-10.8)
[2024-01-29 10:41] LABS: Creatinine, Urine 57.54 mg/dL (30.0-125.0)
[2024-01-29 10:42] LABS: Alanine Aminotransferase 20 U/L (7-40); Alkaline Phosphatase 70 U/L (46-116); Anion Gap 8 (5-15); Calcium 9.6 mg/dL (8.7-10.4); Carbon Dioxide 25 mmol/L (20-30); Chloride 103 mmol/L (98-107); Potassium 4.1 mmol/L (3.5-5.1); Sodium 136 mmol/L (136-145)
[2024-01-29 10:43] LABS: Glucose 125 mg/dL (74-106)
[2024-01-29 10:44] LABS: BUN/Creatinine Ratio 10.7 (10.0-20.0); Blood Urea Nitrogen 13 mg/dL (9-23); LDL Cholesterol 88 mg/dL (< 100); Triglycerides 157 mg/dL (< 150)
[2024-01-29 10:45] LABS: Albumin 4.5 g/dL (3.2-4.8); Aspartate Aminotransferase 18 U/L (13-40); Cholesterol 158 mg/dL (< 200)
[2024-01-29 10:46] LABS: Bilirubin, Total 1.4 mg/dL (0.2-1.0); HDL Cholesterol 51 mg/dL (40-59); Total Protein 6.9 g/dL (5.7-8.2)
[2024-01-29 11:11] LABS: Free T4 (Free Thyroxine) 1.53 ng/dL (0.89-1.76)
[2024-01-29 11:44] LABS: Erythrocyte Sedimentation Rate 2 mm/hr (0-20)
== END | disposition home or self-care (01) ==
LOC: LAB 09:40
PROVIDERS: ATTEND Internal Medicine
DX: I10 Essential (primary) hypertension (principal); E11.9 Type 2 diabetes mellitus without complications
CPT/HCPCS: 36415; 80053; 80061; 82043; 82570; 82607; 83036; 84439; 84443; 85025; 85652

== ENCOUNTER → 2024-07-10 | Outpatient (CLI) | payer MEDICARE, BC | END | disposition home or self-care (01) | LOC: Rad HDHVI 09:52 | PROVIDERS: ATTEND Internal Medicine Cardiovascular Disease | DX: I10 Essential (primary) hypertension (principal); Z95.0 Presence of cardiac pacemaker | CPT/HCPCS: 93306 ==

== ENCOUNTER → 2024-07-28 | Outpatient (CLI) | payer MEDICARE, BC ==
[2024-07-28 11:58] LABS: Basophils # (auto) 0.1 10 ^3/uL (0-0.2); Eosinophils # (auto) 0.1 10 ^3/uL (0-0.8); Hemoglobin 12.8 g/dL (12.2-16.2); Lymphocytes # (auto) 0.9 10 ^3/uL (0.4-5.4); Monocytes # (auto) 0.2 10 ^3/uL (0-1.3); Monocytes % (auto) 5.8 % (0.0-12.0); Red Cell Distribution Width 15.7 % (11.8-14.3); White Blood Cell 4.3 10^3/uL (4.4-10.8)
[2024-07-28 12:01] LABS: Basophils % (auto) 1.8 % (0.0-2.0); Hematocrit 38.2 % (36.0-46.0); Mean Corpuscular Hemoglobin 33.6 pg (28.0-32.0); Mean Corpuscular Hgb Conc. 33.5 g/dL (32.0-36.0); Mean Corpuscular Volume 100.4 fL (80.0-100.0); Neutrophils % (auto) 70.4 % (37.0-80.0); Nucleated Red Blood Cells % 0.1 %; Platelet Count (auto) 148 10^3/uL (140-450)
[2024-07-28 12:15] LABS: Alanine Aminotransferase 18 U/L (7-40); Albumin 4.1 g/dL (3.2-4.8); Alkaline Phosphatase 70 U/L (46-116); Anion Gap 9 (5-15); Aspartate Aminotransferase 20 U/L (13-40); BUN/Creatinine Ratio 11.5 (10.0-20.0); Blood Urea Nitrogen 15 mg/dL (9-23); Calcium 9.5 mg/dL (8.7-10.4); Carbon Dioxide 25 mmol/L (20-31); Chloride 104 mmol/L (98-107); Potassium 4.1 mmol/L (3.5-5.1); Sodium 138 mmol/L (136-145)
[2024-07-28 12:16] LABS: Total Protein 6.5 g/dL (5.7-8.2)
[2024-07-28 12:17] LABS: Glucose 204 mg/dL (74-106)
[2024-07-28 12:38] LABS: Bilirubin, Total 0.9 mg/dL (0.2-1.0)
== END | disposition home or self-care (01) ==
LOC: LAB 10:49
PROVIDERS: ATTEND Internal Medicine
DX: I10 Essential (primary) hypertension (principal); E11.9 Type 2 diabetes mellitus without complications
CPT/HCPCS: 36415; 80053; 83036; 84439; 84443; 85025

== ENCOUNTER → 2024-11-18 | Outpatient (CLI) | payer MEDICARE, BC ==
[2024-11-18 11:19] LABS: Urine Blood Negative /uL (Negative); Urine Clarity Clear (Clear); Urine Color Light-Yellow (Yellow); Urine Protein, UAD Negative (Negative); Urine Specific Gravity 1.012 (1.001-1.035); Urine Urobilinogen Normal (Negative)
[2024-11-18 11:50] LABS: Basophils # (auto) 0.1 10 ^3/uL (0-0.2); Basophils % (auto) 1.4 % (0.0-2.0); Eosinophils # (auto) 0.2 10 ^3/uL (0-0.8); Eosinophils % (auto) 3.8 % (0.0-7.0); Hematocrit 40.1 % (36.0-46.0); Hemoglobin 13.6 g/dL (12.2-16.2); Lymphocytes # (auto) 1.1 10 ^3/uL (0.4-5.4); Lymphocytes % (auto) 26.3 % (10.0-50.0); Mean Corpuscular Hemoglobin 32.4 pg (28.0-32.0); Mean Corpuscular Volume 95.3 fL (80.0-100.0); Monocytes # (auto) 0.3 10 ^3/uL (0-1.3); Monocytes % (auto) 7.4 % (0.0-12.0); Neutrophils # (auto) 2.5 10 ^3/uL (1.6-8.6); Neutrophils % (auto) 61.1 % (37.0-80.0); Platelet Count (auto) 146 10^3/uL (140-450); Red Blood Cells 4.21 10^6/uL (4.0-5.20); Red Cell Distribution Width 13.4 % (11.8-14.3); White Blood Cell 4.2 10^3/uL (4.4-10.8)
[2024-11-18 12:17] LABS: Alanine Aminotransferase 16 U/L (7-40); Albumin 4.5 g/dL (3.2-4.8); Alkaline Phosphatase 66 U/L (46-116); Anion Gap 11 (5-15); Aspartate Aminotransferase 20 U/L (13-40); BUN/Creatinine Ratio 11.2 (10.0-20.0); Blood Urea Nitrogen 16 mg/dL (9-23); Calcium 9.5 mg/dL (8.7-10.4); Carbon Dioxide 25 mmol/L (20-31); Chloride 102 mmol/L (98-107); LDL Cholesterol 62 mg/dL (< 100); Potassium 4.3 mmol/L (3.5-5.1); Sodium 138 mmol/L (136-145); Total Protein 6.7 g/dL (5.7-8.2); Triglycerides 107 mg/dL (< 150)
[2024-11-18 12:18] LABS: Bilirubin, Direct 0.4 mg/dL (<0.3); Bilirubin, Total 1.2 mg/dL (0.2-1.0); Cholesterol 127 mg/dL (< 200); Glucose 126 mg/dL (74-106); HDL Cholesterol 51 mg/dL (40-59)
== END | disposition home or self-care (01) ==
LOC: LAB 10:15
PROVIDERS: ATTEND Internal Medicine Cardiovascular Disease
DX: I10 Essential (primary) hypertension (principal); E11.9 Type 2 diabetes mellitus without complications; E55.9 Vitamin D deficiency, unspecified; D64.9 Anemia, unspecified; R00.2 Palpitations
CPT/HCPCS: 36415; 80048; 80061; 80076; 81003; 83036; 84443; 85025

== ENCOUNTER 2025-01-07 09:59 | Inpatient (IN) | payer MEDICARE, OTHER ==
[~2025-01-07] VITALS: Ht 165.1 cm; Wt 79.4 kg
--- NOTE | 2025-01-07 10:37 | ED.PDOC ---
Back pain HPI HPI Comments This is a 84 year old female KITTYA presenting to the ED with chief complaint of back pain s/p fall. Patient reports that she had been taking a box out of her closet when all of a sudden she had fell onto her back. Patient relays that she now has left sided back pain that radiates down to her left hip. Patient denies any head injury, LOC, numbness, weakness, or tingling. Chief Complaint: Fall Injury Time Seen by MD: 10:34 Reviewed Notes: Nurses Notes, Dry Primer Powder Blender Notes, Medications, Allergies Allergies: Coded Allergies: Codeine (Verified Adverse Reaction, Severe, 10/23/20) Vomiting Home Meds Active Scripts Cephalexin (KEFLEX CAPSULE) 250 Mg Cp, 1 CAP PO QID, #20 CAP Prov:AN SOLIS MD 10/28/20 Reported Medications Levothyroxine Sodium (Levothyroxine Sodium) 112 Mcg Tab, 100 MCG PO, TAB 10/23/20 Atorvastatin Calcium (Lipitor) 10 Mg Tab, 1 TAB PO DAILY, #90 TAB 0 Refills 10/23/20 Metoprolol Succinate (Metoprolol Succinate Er) 50 Mg Tab, 50 MG PO DAILY, TAB 10/23/20 Calcium & Phosphorus W/ Vitami (CALCIUM) Tab, 1 TAB PO DAILY, TAB 10/23/20 Multiple Vitamins W/ Minerals (PRESERVISION AREDS) Areds Tab, 1 DROP EACHEYE DAILY, DROP 10/23/20 Gabapentin (Gabapentin) 300 Mg Cap, 400 MG PO BID, CAP 10/23/20 Ramipril (Ramipril) 10 Mg Cap, 1 CAP PO DAILY, #30 CAP 0 Refills 10/23/20 Potassium Chloride (Potassium Chloride ER) 10 Meq Tab, 10 MEQ PO DAILY, TAB 10/23/20 Information Source: Patient, Emergency Med Personnel Mode of Arrival: EMS Timing: Hours Duration: Since onset Location of Back pain: (L) Lower back Radiates to: Medial: (L) Buttocks Severity: Moderate Prehospital treatment: None Quality: Aching Onset: Fall Circumstance: Other History of: None Past Medical History PAST MEDICAL HISTORY: Denies Surgical History: Denies all surgeries NIGHTMAN History: No Pertinent NIGHTMAN History Family History Family History: Reviewed,noncontributory to illness Social History Smoker: Non-Smoker Alcohol: Denies ETOH Use Drugs: Denies Drug Use Lives In: Home Constitutional: denies: chills, diaphoresis, fatigue, fever, malaise, sweats, weakness, others EENTM: denies: blurred vision, double vision, ear bleeding, ear discharge, ear drainage, ear pain, ear ringing, eye pain, eye redness, hearing loss, mouth pain, mouth swelling, nasal discharge, nose bleeding, nose congestion, nose pain, photophobia, tearing, throat pain, throat swelling, voice changes, others Respiratory: denies: cough, hemoptysis, orthopnea, SOB at rest, shortness of b reath, SOB with excertion, stridor, wheezing, others Cardiovascular: denies: chest pain, dizzy spells, diaphoresis, Dyspnea on exertion, edema, irregular heart beat, left arm pain, lightheadedness, palpitations, PND, syncope, others Gastrointestinal: denies: abdomen distended, abdominal pain, blood streaked bowels, constipated, diarrhea, dysphagia, difficulty swallowing, hematemesis, melena, nausea, poor appetite, poor fluid intake, rectal bleeding, rectal pain, vomiting, others Genitourinary: denies: abnormal vagina bleeding, burning, dyspareunia, dysuria, flank pain, frequency, hematuria, incontinence, pain, , vagina discharge, urgency, others Neurological: denies: dizziness, fainting, headache, left sided numbness, left sided weakness, numbness, paresthesia, pre-existing deficit, right sided numbness, right sided weakness, seizure, speech problems, tingling, tremors, weakness, others Musculoskeletal: reports: back pain; denies: gout, joint pain, joint swelling, muscle pain, muscle stiffness, neck pain, others Integumetry: denies: bruises, change in color, change in hair/nails, dryness, laceration, lesions, lumps, rash, wounds, others Allergic/Immunocompromised: denies: Difficulty Healing, Frequent Infections, Hives, Itching, others Hematologic/Lymphatic: denies: anemia, blood clots, easy bleeding, easy brui sing, swollen glands, others Endocrine: denies: excessive hunger, excessive sweating, excessive thirst, ex cessive urination, flushing, intolerance to cold, intolerance to heat, unexplained weight gain, unexplained weight loss, others Psychiatric: denies: anxiety, bipolar disorder, depression, hopeless, panic disorder, schizophrenia, sleepless, suicidal, others All Other Systems: Reviewed and Negative Physical Exam General Appearance: No Apparent Distress, Normal HEENT: Normal ENT Inspection, Pharynx Normal, TMs Normal Neck: Full Range of Motion, Non-Tender, Normal, Normal Inspection Respiratory: Chest Non-Tender, Lungs Clear, No Accessory Muscle Use, No Respiratory Distress, Normal Breath Sounds Cardiovascular: No Edema, No JVD, No Murmur, No Gallop, Normal Peripheral Pulses, Regular Rate/Rhythm Breast Exam: Deferred Gastrointestinal: No Organomegaly, Non Tender, No Pulsatile Mass, Normal Bowel Sounds, Soft Genitalia: Deferred Pelvic: Deferred Rectal: Deferred Extremities: No calf tenderness, Normal capillary refill, Normal inspection, Normal range of motion, Non-tender, No pedal edema Musculoskeletal : Location: Left Extremity Location: Back Apperance: Tenderness: Moderate Neurologic: Alert, genetics nurse II-XII nml as Tested, No Motor Deficits, Normal Affect, Normal Mood, No Sensory Deficits Cerebellar Function: Normal Reflexes: Normal Skin: Dry, Normal Color, Warm Lymphatic: No Adenopathy Was a procedure done? Was a procedure done?: No Back Pain Differential Dx Differential Diagnosis: Other (Left hip fracture, lumbar fracture, muscle strain) X-Ray, Labs, Meds, VS Vital Signs Date Time Temp Pulse Resp B/P (MAP) Pulse Ox O2 Delivery O2 Flow Rate FiO2 01/07/25 14:00 63 16 173/99 (123) 95 01/07/25 12:00 111 16 177/69 (105) 95 01/07/25 11:38 111 17 172/93 01/07/25 11:08 67 17 208/93 01/07/25 10:02 98.5 88 18 170/80 (110) 98 98.5 01/07/25 10:00 97.8 117 16 179/79 (112) 95 97.8 Lab Test 01/07/25 11:12 01/07/25 10:25 01/07/25 10:21 Range/Units White Blood Count 5.2 4.4-10.8 10^3/uL Red Blood Count 4.29 4.0-5.20 10^6/uL Hemoglobin 13.9 12.2-16.2 g/dL Hematocrit 41.0 36.0-46.0 % Mean Corpuscular Volume 95.6 80.0-100.0 fL Mean Corpuscular Hemoglobin 32.3 H 28.0-32.0 pg Mean Corpuscular Hemoglobin Concent 33.8 32.0-36.0 g/dL Red Cell Distribution Width 13.4 11.8-14.3 % Platelet Count 124 L 140-450 10^3/uL Mean Platelet Volume 7.7 6.9-10.8 fL Neutrophils (%) (Auto) 79.1 37.0-80.0 % Lymphocytes (%) (Auto) 14.0 10.0-50.0 % Monocytes (%) (Auto) 4.8 0.0-12.0 % Eosinophils (%) (Auto) 1.4 0.0-7.0 % Basophils (%) (Auto) 0.7 0.0-2.0 % Neutrophils # (Auto) 4.1 1.6-8.6 10 ^3/uL Lymphocytes # (Auto) 0.7 0.4-5.4 10 ^3/uL Monocytes # (Auto) 0.3 0-1.3 10 ^3/uL Eosinophils # (Auto) 0.1 0-0.8 10 ^3/uL Basophils # (Auto) 0 0-0.2 10 ^3/uL Nucleated Red Blood Cells 0.1 % Sodium Level 138 136-145 mmol/L Potassium Level 4.0 3.5-5.1 mmol/L Chloride Level 104 98-107 mmol/L Carbon Dioxide Level 25 20-31 mmol/L Anion Gap 9 5-15 Blood Urea Nitrogen 15 9-23 mg/dL Creatinine 1.25 H 0.550-1.02 mg/dL Glomerular Filtration Rate Calc 42 >90 mL/min BUN/Creatinine Ratio 12.0 10.0-20.0 Serum Glucose 135 H 74-106 mg/dL Calcium Level 10.0 8.7-10.4 mg/dL Thyroid Stimulating Hormone (TSH) 0.92 0.55-4.78 uIU/mL Urine Color Colorless Yellow Urine Clarity Clear Clear Urine pH 6.5 5.0-9.0 Urine Specific [place] 1.006 1.001-1.035 Urine Protein Negative Negative Urine Ketones Negative Negative Urine Blood Negative Negative /uL Urine Nitrite 1+ H Negative Urine Bilirubin Negative Negative Urine Urobilinogen Normal Negative mg/dL Urine Leukocyte Esterase Trace Negative /uL Urine RBC 1 0 - 4 /hpf Urine Microscopic WBC 7 H 0-5 /HPF Urine Squamous Epithelial Cells None seen <5 /hpf Urine Bacteria Few H None Seen /hpf Urine Glucose Normal Normal mg/dL POC Glucose 149 H 70-106 mg/dl Current Medications Medications (Trade) Dose Ordered Sig/Sharif Route Start Time Stop Time Status Last Admin Sodium Chloride 1,000 ml @ 1,000 mls/hr Q1H ONCE IV 01/07/25 10:45 01/07/25 11:44 DC 01/07/25 11:08 Ondansetron HCl (Zofran) 4 mg ONCE ONCE IV 01/07/25 10:45 01/07/25 10:46 DC 01/07/25 11:08 Morphine Sulfate 4 mg ONCE ONCE IV 01/07/25 10:45 01/07/25 10:46 DC 01/07/25 11:08 Time of 1ST Reevaluation: 11:34 Reevaluation 1ST: Unchanged Patient Education/Counseling: Diagnosis, Treatment Family Education/Counseling: No Family Present SEPSIS Sepsis Screen Date sepsis recognized/suspect: Jan 07, 2025 Time Sepsis recognized/suspect: 1001 Recent Procedure: No On Antibiotic Therapy: No Respiratory Rate >20: No Heart Rate >90: No Temp<36 C (96.8 F) or >38.3 C: No SBP <90 or MAP <65 mmHG: No New Acute Mental Status Change: No Is the patient on CPAP, BIPAP,: No Physician Orders L Hip Complete Xray (01/07/25 10:34) Lumbar Spine 3 View (01/07/25 10:34) Chest Portable (01/07/25 10:34) Vital Signs Date Time Temp Pulse Resp B/P (MAP) Pulse Ox O2 Delivery O2 Flow Rate FiO2 01/07/25 14:00 63 16 173/99 (123) 95 01/07/25 12:00 111 16 177/69 (105) 95 01/07/25 11:38 111 17 172/93 01/07/25 11:08 67 17 208/93 01/07/25 10:02 98.5 88 18 170/80 (110) 98 98.5 01/07/25 10:00 97.8 117 16 179/79 (112) 95 97.8 Laboratory Tests Test 01/07/25 11:12 White Blood Count 5.2 10^3/uL (4.4-10.8) Medications Medications Dose Ordered Sig/Sharif Route Start Time Stop Time Status Last Admin Dose Admin Morphine Sulfate 4 mg ONCE ONCE IV 01/07/25 10:45 01/07/25 10:46 DC 01/07/25 11:08 Ondansetron HCl 4 mg ONCE ONCE IV 01/07/25 10:45 01/07/25 10:46 DC 01/07/25 11:08 Sodium Chloride 1,000 ml @ 1,000 mls/hr Q1H ONCE IV 01/07/25 10:45 01/07/25 11:44 DC 01/07/25 11:08 Departure 1 Departure Time of Disposition: 15:16 (Patient had mechanical fall with left pubic rami fracture. Patient unable to ambulate. Will admit patient for further workup and expert consultation.) Impression: Primary Impression: Closed fracture of left superior pubic ramus Qualified Codes: S32.512A - Fracture of superior rim of left pubis, initial encounter for closed fracture Additional Impression: Unable to ambulate Disposition: ADMITTED INPATIENT Admit to: Med Surg Condition: Serious Critical Care Note Critical Care Time?: Yes Critical care comment: Intractable left hip pain Authorized and Performed by: Vitaliy Arriaga MD Total critical care time: Approximately 39 minutes Due to a high probability of clinically significant, life threatening deterioration, the patient required my highest level of preparedness to intervene emergently and I personally spent this critical care time directly and personally managing the patient. This critical care time included obtaining a history; examining the patient; pulse oximetry; ordering and review of studies; arranging urgent treatment with development of a management plan; evaluation of patient's response to treatment; frequent reassessment; and, discussions with other providers. This critical care time was performed to assess and manage the high probability of imminent, life-threatening deterioration that could result in multi-organ failure. It was exclusive of separately billable procedures and treating other patients and teaching time. Please see my other sections and the rest of the note for further information on patient assessment and treatment. Stability Stability form required: No Heart Score Heart Score: Heart Score Response (Comments) Value History N/A 0 EKG N/A 0 Age N/A 0 Risk Factors N/A 0 Troponin N/A 0 Total 0 I personally scribed for VITALIY ARRIAGA MD ([email or web address]) on 01/07/25 at 10:37. Electronically submitted by Osmin Pink ([email or web address]). VITALIY ARRIAGA MD Jan 07, 2025 10:37
[2025-01-07] MEDS: MORPHINE SULFATE 4 MG/ML SYR/VIAL IV ONE (11:08)
[2025-01-07] MEDS: SODIUM CHLORIDE 0.9% 1,000 ML IV ONE (11:08)
[2025-01-07] MEDS: ONDANSETRON HCL 4 MG/2 ML VIAL IV ONE (11:08)
--- NOTE | 2025-01-07 11:22 | DVH ---
Indication: fall Technique: XY L HIP COMPLETE XRAYXY Comparison: None FINDINGS/IMPRESSION: Age indeterminate fracture of the left pubic ramus / symphysis. Correlate with point tenderness and symptoms for Acute fracture. [id number] degenerate changes bilateral hips. 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 Atherosclerotic disease.
--- NOTE | 2025-01-07 11:23 | DVH ---
Indication: fall Technique: XY LUMBAR SPINE 3 VIEWXY Comparison: None FINDINGS/IMPRESSION: Lumbar heights are maintained. Moderate to severe disc space narrowing with endplate sclerosis. 5 mm anterolisthesis of L4 upon L5.6 mm anterolisthesis of L3 upon L4.5 mm retrolisthesis of L2 upon L3. Moderate to severe lumbar facet hypertrophic changes. Lumbar levocurvature. Aortic atherosclerotic disease. Left band device. Pelvic vascular phleboliths. Atherosclerotic disease.
--- NOTE | 2025-01-07 11:24 | DVH ---
CHEST RADIOGRAPH Indication: fall Technique: XY CHEST PORTABLE COMPARISON: None FINDINGS: Right chest cardiac pacer device. The cardiac silhouette is enlarged. The lungs demonstrate bilateral patchy airspace opacities. The pu lmonary vasculature is prominent. There is no pleural effusion. There is no pneumothorax. Aortic athe rosclerotic disease. Gastric lap band device. IMPRESSION: As above
[2025-01-07 11:33] LABS: Hematocrit 41.0 % (36.0-46.0); Hemoglobin 13.9 g/dL (12.2-16.2); Mean Corpuscular Hemoglobin 32.3 pg (28.0-32.0); Mean Corpuscular Volume 95.6 fL (80.0-100.0); Nucleated Red Blood Cells % 0.1 %
[2025-01-07 11:44] LABS: Chloride 104 mmol/L (98-107); Potassium 4.0 mmol/L (3.5-5.1); Sodium 138 mmol/L (136-145)
[2025-01-07 11:45] LABS: Anion Gap 9 (5-15); Carbon Dioxide 25 mmol/L (20-31)
[2025-01-07 11:46] LABS: Calcium 10.0 mg/dL (8.7-10.4)
[2025-01-07 11:51] LABS: BUN/Creatinine Ratio 12.0 (10.0-20.0); Blood Urea Nitrogen 15 mg/dL (9-23)
[2025-01-07 11:54] LABS: Glucose 135 mg/dL (74-106)
[2025-01-07 12:24] LABS: Urine Protein, UAD Negative (Negative)
[2025-01-07] MEDS ORDERED: DOCUSATE SOD 100 MG CAP PO PRN (14:15)
[2025-01-07] MEDS ORDERED: MORPHINE SULFATE INJ 2 MG/ml SYRG IV PRN (14:15)
[2025-01-07] MEDS ORDERED: ONDANSETRON HCL 4 MG/2 ML VIAL IV PRN (14:15)
[2025-01-07] MEDS ORDERED: NITROGLYCERIN 0.4 MG SL TAB SL PRN (14:15)
[2025-01-07] MEDS: SODIUM CHLORIDE 0.9% 1,000 ML IV SCH (14:43)
--- NOTE | 2025-01-07 14:46 | DVHHP2 ---
History of Present Illness Reason for Visit: Fall injury History of Present Illness The patient is a 84-year-old female with past medical history of thyroid disease, hypertension, and hyperlipidemia who presented to [facility] ED with complaint of back pain. Patient reports that she was taking a box out of her closet when she suddenly fell onto the floor hitting her back with more pressure on her hips. Patient reports now she has been experiencing left-sided back pain that radiates down to her left hips, getting worse that prompted this visit. Patient was seen and evaluated in the ED, laboratory data shows WBC 5.2, platelets 124, sodium 138, potassium 4.0, BUN 15, creatinine 1.25, glucose 135, calcium 10.0, blood pressure 177/69, heart rate 110, temperature 97.8 F, O2 saturation 95% room air. Left hip x-ray revealing age indeterminate fracture of the left pubic ramus/symphysis; correlate with point tenderness and symptoms for acute fracture. Generalized weakness positive for urinary tract infection. Patient was started on IV antibiotic regimen Rocephin, please see medication orders section in the computer. On my assessment, patient denied chest pain, no headache, no dizziness, no diaphoresis, no head injury, no loss of consciousness, no numbness, no weakness, no shortness of breaths, no nausea, no vomiting, no fever, no chills. Patient was admitted for further evaluation and medical management. Past Medical History Thyroid disease, Hypertension, HLD Past Surgical History Denies all surgeries Family History Reviewed, noncontributory to the management of this case. Past Social History The patient lives at home, denies smoking, alcohol or illicit drugs abuse. Review of Systems Constitutional: Yes: Weakness; No: Fever, Chills, Sweats, Malaise, Other Eyes: No: Pain, Vision change, Conjunctivae inflammation, Eyelid inflammation, Other, Redness ENT: No: Ear pain, Ear discharge, Nose pain, Nose discharge, Nose congestion, Mouth pain, Mouth swelling, Throat pain, Throat swelling, Other Respiratory: No: Cough, Dry, Shortness of breath, SOB with excertion, Wheezing, Hemoptysis, Pleuritic Pain, Sputum, Wheezing, Other Cardiovascular: No: Chest Pain, Palpitations, Orthopnea, Paroxysmal Noc. Dyspnea, Edema, Lt Headedness, Other Gastrointestinal: No: Nausea, Vomiting, Abdominal Pain, Diarrhea, Constipation, Melena, Hematochezia, Other Genitourinary: No Dysuria, No Frequency, No Incontinence, No Hematuria, No Retention, No Other Musculoskeletal: other (Left hip pain), back pain; No: neck pain, shoulder pain, arm pain, hand pain, leg pain, foot pain Skin: No: Rash, Lesions, Jaundice, Bruising, Other Neurological: No: Weakness, Numbness, Incoordination, Change in speech, Confusion, Seizures, Other Allergies: Coded Allergies: Codeine (Verified Adverse Reaction, Severe, 10/23/20) Vomiting Exam Vital Signs Vital Signs Date Time Temp Pulse Resp B/P (MAP) Pulse Ox O2 Delivery O2 Flow Rate FiO2 01/07/25 12:00 111 16 177/69 (105) 95 01/07/25 10:02 98.5 98.5 General Appearance: Alert, Oriented X3, Cooperative, No acute distress HEENT: Atraumatic, PERRLA, EOMI, Mucous membr. moist/pink Respiratory: Normal air movement Cardiovascular: Regular rate, Normal S1, Normal S2, No murmurs Abdominal: Normal bowel sounds, Soft, No tenderness, No hepatospenomegaly, No masses Extremities: No clubbing, No cyanosis, No edema, Normal pulses, Other (Left hip tenderness.) Skin: No rashes, No significant lesion Neuro: Normal speech, Normal tone, Sensation intact, Cranial nerves 3-12 NL, Reflexes 2+, Other (Generalized weakness) Psych/Mental Status: Mental status NL, Mood NL Labs/Xrays Labs Test 01/07/25 11:12 01/07/25 10:25 01/07/25 10:21 Range/Units White Blood Count 5.2 4.4-10.8 10^3/uL Red Blood Count 4.29 4.0-5.20 10^6/uL Hemoglobin 13.9 12.2-16.2 g/dL Hematocrit 41.0 36.0-46.0 % Mean Corpuscular Volume 95.6 80.0-100.0 fL Mean Corpuscular Hemoglobin 32.3 H 28.0-32.0 pg Mean Corpuscular Hemoglobin Concent 33.8 32.0-36.0 g/dL Red Cell Distribution Width 13.4 11.8-14.3 % Platelet Count 124 L 140-450 10^3/uL Mean Platelet Volume 7.7 6.9-10.8 fL Neutrophils (%) (Auto) 79.1 37.0-80.0 % Lymphocytes (%) (Auto) 14.0 10.0-50.0 % Monocytes (%) (Auto) 4.8 0.0-12.0 % Eosinophils (%) (Auto) 1.4 0.0-7.0 % Basophils (%) (Auto) 0.7 0.0-2.0 % Neutrophils # (Auto) 4.1 1.6-8.6 10 ^3/uL Lymphocytes # (Auto) 0.7 0.4-5.4 10 ^3/uL Monocytes # (Auto) 0.3 0-1.3 10 ^3/uL Eosinophils # (Auto) 0.1 0-0.8 10 ^3/uL Basophils # (Auto) 0 0-0.2 10 ^3/uL Nucleated Red Blood Cells 0.1 % Sodium Level 138 136-145 mmol/L Potassium Level 4.0 3.5-5.1 mmol/L Chloride Level 104 98-107 mmol/L Carbon Dioxide Level 25 20-31 mmol/L Anion Gap 9 5-15 Blood Urea Nitrogen 15 9-23 mg/dL Creatinine 1.25 H 0.550-1.02 mg/dL Glomerular Filtration Rate Calc 42 >90 mL/min BUN/Creatinine Ratio 12.0 10.0-20.0 Serum Glucose 135 H 74-106 mg/dL Calcium Level 10.0 8.7-10.4 mg/dL Urine Color Colorless Yellow Urine Clarity Clear Clear Urine pH 6.5 5.0-9.0 Urine Specific [place] 1.006 1.001-1.035 Urine Protein Negative Negative Urine Ketones Negative Negative Urine Blood Negative Negative /uL Urine Nitrite 1+ H Negative Urine Bilirubin Negative Negative Urine Urobilinogen Normal Negative mg/dL Urine Leukocyte Esterase Trace Negative /uL Urine RBC 1 0 - 4 /hpf Urine Microscopic WBC 7 H 0-5 /HPF Urine Squamous Epithelial Cells None seen <5 /hpf Urine Bacteria Few H None Seen /hpf Urine Glucose Normal Normal mg/dL POC Glucose 149 H 70-106 mg/dl PATIENT: ANGELA COLE ACCT: [id number] UNIT: [id number] : 1940 LOC: ER ROOM / BED: / AGE / SEX: 84 / F ADM STATUS: REG ER SERVICE 1034 ORDERING PHYSICIAN: VITALIY ARRIAGA MD PROCEDURE(s): LHIP - L HIP COMPLETE XRAY REASON: fall ORDER NUMBER(s): [id number], ACCESSION NUMBER(s): [id number] Indication: fall Technique: XY L HIP COMPLETE XRAYXY Comparison: None FINDINGS/IMPRESSION: Age indeterminate fracture of the left pubic ramus/symphysis. Correlate with point tenderness and symptoms for Acute fracture. Pmoa-vs-rtryehfn degenerate changes bilateral hips. Mild bilateral sacroiliac degenerative joint disease. Atherosclerotic disease. ORDERING PHYSICIAN: VITALIY ARRIAGA MD PROCEDURE(s): LUMB2 - LUMBAR SPINE 3 VIEW REASON: fall ORDER NUMBER(s): [id number], ACCESSION NUMBER(s): [id number] Indication: fall Technique: XY LUMBAR SPINE 3 VIEWXY Comparison: None FINDINGS/IMPRESSION: Lumbar heights are maintained. Moderate to severe disc space narrowing with endplate sclerosis. 5 mm anterolisthesis of L4 upon L5.6 mm anterolisthesis of L3 upon L4.5 mm retrolisthesis of L2 upon L3. Moderate to severe lumbar facet hypertrophic changes. Lumbar levocurvature. Aortic atherosclerotic disease. Left band device. Pelvic vascular phleboliths. Atherosclerotic disease. ORDERING PHYSICIAN: VITALIY ARRIAGA MD PROCEDURE(s): CXRP - CHEST PORTABLE REASON: fall ORDER NUMBER(s): [id number], ACCESSION NUMBER(s): [id number] CHEST RADIOGRAPH Indication: fall Technique: XY CHEST PORTABLE COMPARISON: None FINDINGS: Right chest cardiac pacer device. The cardiac silhouette is enlarged. The lungs demonstrate bilateral patchy airspace opacities. The pulmonary vasculature is prominent. There is no pleural effusion. There is no pneumothorax. Aortic atherosclerotic disease. Gastric lap band device. IMPRESSION: As above SEPSIS Sepsis Screen Date sepsis recognized/suspect: Jan 07, 2025 Time Sepsis recognized/suspect: 1002 Recent Procedure: No On Antibiotic Therapy: No Respiratory Rate >20: No Heart Rate >90: No Temp<36 C (96.8 F) or >38.3 C: No SBP <90 or MAP <65 mmHG: No New Acute Mental Status Change: No Is the patient on CPAP, BIPAP,: No Physician Orders L Hip Complete Xray (01/07/25 10:34) Lumbar Spine 3 View (01/07/25 10:34) Chest Portable (01/07/25 10:34) Thyroid Stimulating Hormone (01/07/25 14:13) Levothyroxine Tablet (Synthroid Tablet) (01/08/25 06:00) Metoprolol Tartrate Tablet (Lopressor Ta (01/07/25 22:00) Atorvastatin (Lipitor) (01/07/25 22:00) Admit (01/07/25 14:13) Allergies (01/07/25 14:13) Code Status (01/07/25 14:13) 0.9% Ns 1000 Ml (01/07/25 14:15) Oxygen Per Hour (01/07/25 14:13) Ondansetron Hcl (Zofran) (01/07/25 14:15) Docusate Sodium Capsule (Colace Capsule) (01/07/25 14:15) Multiple Vitamin Tablet (Mvi Tab) (01/08/25 10:00) Fall Risk Precautions In Place QSHIFT (01/07/25 14:13) Complete Blood Count (01/08/25 04:00) Comprehensive Metabolic Panel (01/08/25 04:00) Cardiac Diet-2gna,Lofat,Lochol (01/07/25 Dinner) Condition: Serious (01/07/25 14:13) Acetaminophen Tablet (Tylenol Tablet) (01/07/25 14:15) Maintain Bed Rest (01/07/25 14:13) Sequential Compression Device (01/07/25 ) Nitroglycerin Sublingual (Ntrostat Subli (01/07/25 14:15) Morphine Sulfate Injection (01/07/25 14:15) Stat Ekg For Chest Pain (01/07/25 14:13) Notify Md Of Changes From Base (01/07/25 14:13) Door Paneler For 24 Hours (01/07/25 14:13) Emergency Dysrhythmia Protocol (01/07/25 14:13) Rhythm Strips Once Every Shift (01/07/25 14:13) Oxygen By Nasal Cannula (01/07/25 14:13) Vital Signs Date Time Temp Pulse Resp B/P (MAP) Pulse Ox O2 Delivery O2 Flow Rate FiO2 01/07/25 12:00 111 16 177/69 (105) 95 01/07/25 11:38 111 17 172/93 01/07/25 11:08 67 17 208/93 01/07/25 10:02 98.5 88 18 170/80 (110) 98 98.5 01/07/25 10:00 97.8 117 16 179/79 (112) 95 97.8 Laboratory Tests Test 01/07/25 11:12 White Blood Count 5.2 10^3/uL (4.4-10.8) Medications Medications Dose Ordered Sig/Sharif Route Start Time Stop Time Status Last Admin Dose Admin Morphine Sulfate 4 mg ONCE ONCE IV 01/07/25 10:45 01/07/25 10:46 DC 01/07/25 11:08 4 MG Ondansetron HCl 4 mg ONCE ONCE IV 01/07/25 10:45 01/07/25 10:46 DC 01/07/25 11:08 4 MG Sodium Chloride 1,000 ml @ 1,000 mls/hr Q1H ONCE IV 01/07/25 10:45 01/07/25 11:44 DC 01/07/25 11:08 1,000 MLS/HR Assessment/Plan Assessment/Plan Fall with injury Left hip pain Urinary tract infection Generalized weakness Plan 1. Admit to telemetry unit 2. Breathing treatment 3. Pain control management 4. IV antibiotic management 5. Management of fluids and electrolytes 6. Consultation for orthopedic/hospitalist 7. Diagnostic test left hip x-ray 8. DVT prophylaxis on SCDs 9. Repeat labs CBC, CMP in a.m. 10. Home medication reviewed and reconciled 11. Continue with current medical management 12. Treatment plan discussed with patient and RN. Patient verbalized understanding. Plan discussed with: Patient, Other (RN) My Orders Orders - LENY CHOWDARY DNP Procedure Category Date Status Time Thyroid Stimulating LAB 01/07/25 Transmitted Hormone 14:13 Levothyroxine Tablet PHA 01/08/25 Transmitted (Synthroid Tablet) 06:00 Metoprolol Tartrate PHA 01/07/25 Transmitted Tablet (Lopressor Ta 22:00 Atorvastatin (Lipitor) PHA 01/07/25 Transmitted 22:00 Admit ADMIT 01/07/25 Transmitted 14:13 Allergies PRIYA 01/07/25 Transmitted 14:13 Code Status CODE 01/07/25 Transmitted 14:13 0.9% Ns 1000 Ml PHA 01/07/25 Transmitted 14:15 Oxygen Per Hour RT 01/07/25 Transmitted 14:13 Ondansetron Hcl PHA 01/07/25 Transmitted (Zofran) 14:15 Docusate Sodium PHA 01/07/25 Transmitted Capsule (Colace 14:15 Multiple Vitamin PHA 01/08/25 Transmitted Tablet (Mvi Tab) 10:00 Fall Risk Precautions PRIYA 01/07/[address] 14:13 Complete Blood Count LAB 01/08/25 Verified 04:00 Comprehensive LAB 01/08/25 Verified Metabolic Panel 04:00 Cardiac DIET 01/07/25 Transmitted Diet-2gna,Lofat,Lochol Dinner Condition: Serious PRIYA 01/07/25 Transmitted 14:13 Acetaminophen Tablet PHA 01/07/25 Transmitted (Tylenol Tablet) 14:15 Maintain Bed Rest [facility] 01/07/25 Verified 14:13 Sequential [facility] 01/07/25 Verified Compression Device Nitroglycerin [facility] 01/07/25 Verified Sublingual (Ntrostat 14:15 Morphine Sulfate [facility] 01/07/25 Verified Injection 14:15 Stat Ekg For Chest [facility] 01/07/25 Verified Pain 14:13 Notify Md Of Changes [facility] 01/07/25 Verified From Base 14:13 Door Paneler For [facility] 01/07/25 Verified 24 Hours 14:13 Emergency Dysrhythmia [facility] 01/07/25 Verified Protocol 14:13 Rhythm Strips Once [facility] 01/07/25 Verified Every Shift 14:13 Oxygen By Nasal RT 01/07/25 Verified Cannula 14:13 Problem List: (1) Fall with injury (2) Left hip pain (3) Urinary tract infection (4) Generalized weakness Date of Service: Jan 07, 2025 Billing Provider: LENY CHOWDARY DNP Common Visit Codes: [id number] INP/OBS CARE (HIGH) LENY CHOWDARY DNP Jan 07, 2025 14:46
[2025-01-07] MEDS: cefTRIAXone 1GM/50ML D5W 50 ML IV ONE (15:18)
[2025-01-07 17:29] VITALS: PULSE 109; RESP 16; O2SAT 93
[2025-01-07] MEDS ORDERED: hydrALAZINE HCL 20 MG/ML VL IV PRN ×2 (18:00)
--- NOTE | 2025-01-07 18:48 | DVH ---
EXAM: CT CT L HIP WITH OUT CONTRAST INDICATION: fracture EXAM DATE: 01/07/2025 04:12 PM COMPARISON: None TECHNIQUE: Multiple axial CT images of the left hip were obtained using bone algorithm. Axial and cor onal reformatting was done. Bone and soft tissue windows were reviewed. Radiation Dose Information: CT Dose: CTDI volume is 20.46 mGy. Dose-length product is 799.73 mGy*cm Findings/Impression: There is no evidence of an acute fracture, dislocation, blastic, or lytic lesions. No radiopaque foreign bodies. No joint effusion. Mild soft tissue edema along the left hip and thigh. The urinary bladder is decompressed via Tapia catheter. Possible 2.5 x 2.2 cm left adnexal structure. Consider pelvic ultrasound for further evaluation as cl inically indicated.
[2025-01-07 19:30] VITALS: PULSE 68; RESP 16; O2SAT 93
[2025-01-07] MEDS: ACETAMINOPHEN 325 MG TAB PO PRN (19:49)
--- NOTE | 2025-01-07 20:29 | DVHINCON2 ---
Consult Note Consult Consult Note Chief Complaint: Left hip and lower back pain after ground-level fall. --- History of Present Illness: Ms. Kristin Blevins is a 84-year-old female who was admitted following a ground-level fall yesterday and presents with left hip and sacroiliac joint pain. ER consulted for noted possible occult hip fracture. During today's orthopedic evaluation, the patient denies any numbness, tingling, or lower extremity radicular symptoms. She reports pain with weight bearing, which is primarily localized to the left SI joint region. . The patient also denies any urinary or fecal incontinence,no lower extermity weakness, pain out of proportion , numbness/tingling LE reported, and there are no red flag symptoms noted. . - --- Physical Examination: Gait: Limited due to pain Left Hip: grossly intact but painful, crepitus, no instability SI Joint: Mild tenderness to palpation on the left Lumbar Spine: Paraspinal tenderness at L5S1; no pain on flexion/extension Neurovascular: Intact distally, no numbness or tingling reported Red Flags: Denies bowel/bladder incontinence, saddle anesthesia, or lower extremity weakness XRAY LUMBAR AND PELVIS Lumbar heights are maintained. Moderate to severe disc space narrowing with endplate sclerosis. 5 mm anterolisthesis of L4 upon L5.6 mm anterolisthesis of L3 upon L4.5 mm retrolisthesis of L2 upon L3. Moderate to severe lumbar facet hypertrophic changes. Lumbar levocurvature. Age indeterminate fracture of the left pubic ramus / symphysis. Correlate with point tenderness and symptoms for Acute fracture. [id number] degenerate changes bilateral hips. Mild bilateral sacroiliac degenerative joint disease. --- Assessment: 1. Left SI joint strain and paraspinal soft tissue pain following ground-level fall (S33.6XXA) 2. Possible old left pubic rami fracture, non-displaced (S32.502S) 3. Mechanical low back pain without neurological deficit (M54.5) --- Plan: Pt currently is inpatient. Xray and case reviewed by DR. Chandra , Non op treatment with walker, WBAT recommended Non-operative management at this time. RECS FOR MEDICINE TEAM/ER/HOSPITALIST TEAM IS BELOW: Walker recommended for ambulation assistance to reduce weight-bearing stress. Pain medications to be prescribed by ER upon discharge. If needed, consider short course of a muscle relaxant (e.g., cyclobenzaprine) for suspected back spasms. ER return precautions thoroughly discussed, including: Inability to ambulate New or worsening back pain Onset of neurological symptoms (e.g., numbness, incontinence) Follow up with outpatient orthopedic or primary care IN 1 WEEK or early if symptoms persist or worsen. Plan discussed with: Patient, Spouse Visit Coding Surgery Date of Service if different f: Jan 07, 2025 Billing Provider: JAJA BABCOCK Surgery Visit Codes: [id number] - INP CONSULT <55 MIN JAJA BABCOCK Jan 07, 2025 20:29
[2025-01-07 21:11] VITALS: BP 181/66; PULSE 65; RESP 18; TEMP 98.4; O2SAT 94
[2025-01-07 21:44] VITALS: BP 181/66; PULSE 65; RESP 18; TEMP 98.4; O2SAT 94
[2025-01-07] MEDS: MELATONIN 5 MG TAB PO ONE (23:02)
[2025-01-07] MEDS: METOPROLOL TARTRATE 50 MG TAB PO SCH (23:02)
[2025-01-07] MEDS: ATORVASTATIN 20 MG TAB PO SCH (23:02)
[2025-01-08 01:00] VITALS: BP 117/45; PULSE 63; RESP 17; TEMP 98; O2SAT 92
[2025-01-08 05:00] VITALS: BP 114/40; PULSE 60; RESP 17; TEMP 97.8; O2SAT 92
[2025-01-08] MEDS: LEVOTHYROXINE SODIUM 112 MCG TAB PO SCH (06:19)
[2025-01-08 06:59] LABS: Hematocrit 40.9 % (36.0-46.0); Hemoglobin 13.6 g/dL (12.2-16.2); Mean Corpuscular Hemoglobin 32.1 pg (28.0-32.0); Mean Corpuscular Volume 96.7 fL (80.0-100.0); Nucleated Red Blood Cells % 0.0 %
[2025-01-08 07:29] LABS: Alanine Aminotransferase 16 U/L (7-40); Alkaline Phosphatase 57 U/L (46-116); Anion Gap 8 (5-15); BUN/Creatinine Ratio 10.0 (10.0-20.0); Blood Urea Nitrogen 11 mg/dL (9-23); Calcium 9.4 mg/dL (8.7-10.4); Carbon Dioxide 24 mmol/L (20-31); Chloride 105 mmol/L (98-107); Potassium 4.1 mmol/L (3.5-5.1); Sodium 137 mmol/L (136-145); Total Protein 6.1 g/dL (5.7-8.2)
[2025-01-08 07:30] LABS: Albumin 4.0 g/dL (3.2-4.8)
[2025-01-08 07:35] LABS: Bilirubin, Total 1.3 mg/dL (0.2-1.0); Glucose 123 mg/dL (74-106)
[2025-01-08 08:00] VITALS: PULSE 61
[2025-01-08] MEDS: cefTRIAXone 1GM/50ML D5W 50 ML IV SCH (09:00)
[2025-01-08] MEDS: MULTIPLE VITAMIN TAB PO SCH (09:12)
[2025-01-08 09:30] VITALS: BP 128/58; PULSE 65; RESP 17; TEMP 98; O2SAT 93
[2025-01-08 13:00] VITALS: BP 148/61; PULSE 61; RESP 16; TEMP 97.1; O2SAT 94
--- NOTE | 2025-01-08 14:09 | DVHPN2 ---
Subjective Patient continues to complain of back pain. Reviewed: Care Plan, H&P, Labs, Medications Changes from previous H/P or p: No Changes General: Per HPI Eyes: No Pain, No Vision change, No Conjunctivae inflammation, No Eyelid inflammation, No Other, No Redness ENT: No Ear pain, No Ear discharge, No Nose pain, No Nose discharge, No Nose congestion, No Mouth pain, No Mouth swelling, No Throat pain, No Throat swelling, No Other Cardiovascular: No Chest Pain, No Palpitations, No Orthopnea, No Paroxysmal Noc. Dyspnea, No Edema, No Lt Headedness, No Other Respiratory: No Cough, No Dry, No Shortness of breath, No SOB with excertion, No Wheezing, No Hemoptysis, No Pleuritic Pain, No Sputum, No Other Gastrointestinal: No Nausea, No Vomiting, No Abdominal Pain, No Diarrhea, No Constipation, No Melena, No Hematochezia, No Other Genitourinary: No Dysuria, No Frequency, No Incontinence, No Hematuria, No Retention, No Other Musculoskeletal: other (Left hip pain); No neck pain, No shoulder pain, No arm pain; back pain; No hand pain, No leg pain, No foot pain Skin: No Rash, No Lesions, No Jaundice, No Bruising, No Other Objective Vitals Vital Signs Date Time Temp Pulse Resp B/P (MAP) Pulse Ox O2 Delivery O2 Flow Rate FiO2 01/08/25 13:00 97.1 61 16 148/61 (90) 94 97.1 01/08/25 08:00 Room Air* 0 21 Intake/Output Intake and Output 01/08/25 07:00 Intake Total 1100 ml Output Total 1000 ml Balance 100 ml Intake Oral 50 ml IV Total 1050 ml Output Urine Total 1000 ml General Appearance: Alert, Oriented X3, Cooperative, mild distress HEENT: Atraumatic, PERRLA Cardiovascular: Normal S1, Normal S2 Abdomen: Normal bowel sounds, Soft, No tenderness Musculoskeletal: Normal sensory function, Normal motor function Neuro: Normal gait, Normal speech Skin: Dry, Intact Psych/Mental Status: Mental status NL, Mood NL Medications Current Medications Medications Dose Ordered Sig/Sharif Route Start Time Stop Time Status Last Admin Dose Admin Levothyroxine Sodium 112 mcg QAM@0600 PO 01/08/25 06:00 01/08/25 06:19 112 MCG Metoprolol Tartrate 50 mg BID PO 01/07/25 22:00 01/08/25 09:13 50 MG Atorvastatin Calcium 10 mg HS PO 01/07/25 22:00 01/07/25 23:02 10 MG Sodium Chloride 1,000 ml @ 60 mls/hr [id number] IV 01/07/25 14:15 01/07/25 14:43 60 MLS/HR Ondansetron HCl 4 mg Q4HP PRN IV 01/07/25 14:15 Docusate Sodium 100 mg BIDPRN PRN PO 01/07/25 14:15 Multivitamins 1 tab DAILY PO 01/08/25 10:00 01/08/25 09:12 1 TAB Acetaminophen 650 mg Q6HP PRN PO 01/07/25 14:15 01/08/25 09:12 650 MG Nitroglycerin 0.4 mg Q5MINP PRN SL 01/07/25 14:15 Morphine Sulfate 2 mg Q30M PRN IV 01/07/25 14:15 Hydralazine HCl 10 mg Q6HP PRN IV 01/07/25 18:00 Hold Amlodipine Besylate 5 mg DAILY PO 01/08/25 10:00 01/08/25 09:13 5 MG Clonidine HCl 0.1 mg Q4HP PRN PO 01/07/25 18:00 Tramadol HCl 50 mg Q6HP PRN PO 01/08/25 13:45 UNV Ciprofloxacin 500 mg Q12HR PO 01/08/25 14:00 UNV Laboratory Results Laboratory Tests 01/08/25 06:23 Chemistry Test 01/08/25 06:23 Albumin 4.0 g/dL (3.2-4.8) Calcium Level 9.4 mg/dL (8.7-10.4) Total Protein 6.1 g/dL (5.7-8.2) LFT Test 01/08/25 06:23 Alanine Aminotransferase (ALT) 16 U/L (7-40) Alkaline Phosphatase 57 U/L (46-116) Aspartate Amino Transferase (AST) 22 U/L (13-40) Total Bilirubin 1.3 mg/dL (0.2-1.0) H Urinalysis Test 01/07/25 10:25 Urine Color Colorless (Yellow) Urine Clarity Clear (Clear) Urine pH 6.5 (5.0-9.0) Urine Specific [place] 1.006 (1.001-1.035) Urine Protein Negative (Negative) Urine Ketones Negative (Negative) Urine Blood Negative /uL (Negative) Urine Nitrite 1+ (Negative) H Urine Bilirubin Negative (Negative) Urine Urobilinogen Normal mg/dL (Negative) Urine Leukocyte Esterase Trace /uL (Negative) Urine RBC 1 /hpf (0 - 4) Urine Microscopic WBC 7 /HPF (0-5) H Urine Squamous Epithelial Cells None seen /hpf (<5) Urine Bacteria Few /hpf (None Seen) H Urine Glucose Normal mg/dL (Normal) Microbiology Microbiology Date/Time Source Procedure Growth Status 01/07/25 16:01 Urine - [place] Urine Culture - Preliminary Resulted Labs and/or images reviewed: Labs reviewed by me, Image(s) reviewed by me Assessment/Plan Assessment/Plan Impression: -rule out spinal stenosis -mechanical fall -primary hypertension -history of lumbar laminectomy -macular degeneration -hypothyroidism -UTI Plan: -pain management -CT of lumbar spine, results pending -thyroid supplementation -start oral ciprofloxacin -physical therapy Total time spent with patient discussing and formulating plan of care: 35 minutes. This medical document was created using an electronic medical record system with [employer] dictation system. Although this document has been carefully reviewed, there may still be some phonetic and typographical errors. These areas are purely typographical due to imperfections of the software programs, and do not reflect any compromise in the patient's medical care. Plan discussed with: Patient, Other (Rn) My Orders Orders - NIA MARIE NP Procedure Category Date Status Time Ls Spine Wo Contrast CT 01/08/25 Taken 12:54 Pt Request For Service PT 01/08/25 Logged 13:44 Tramadol Hcl (Ultram) PHA 01/08/25 Logged 13:45 Ciprofloxacin Tablet PHA 01/08/25 Logged (Cipro Tablet) 14:00 Date of Service: Jan 08, 2025 Billing Provider: NIA MARIE NP Common Visit Codes: [id number] INP/OBS CARE(HIGH) NIA MARIE NP Jan 08, 2025 14:09
--- NOTE | 2025-01-08 15:18 | DVH ---
CT LS SPINE WO CONTRAST Indication: back pain, radiculopathy EXAM DATE: 01/08/2025 01:12 PM COMPARISON: None TECHNIQUE: CT of the lumbar spine without intravenous contrast. RADIATION DOSE: CTDIvol: 37 mGy, DLP: 1160.9 mGy*cm FINDINGS: Age-indeterminate T12 compression fracture deformity with 20% loss of height and depression of the dueñas perior endplate. The lumbar vertebral body heights are maintained. Moderate to advanced multilevel disc space narrowin g most pronounced at L2-3, L5-S1.5 mm anterolisthesis of L3 upon L4. Moderate to advanced lumbar fac et hypertrophic changes. Moderate to severe neural foraminal stenosis at L3-4, L5-S1. Moderate neura l foraminal stenosis at L2-3, L4-5. Thecal sac measures 6 mm at L3-4 consistent with moderate to sev ere spinal canal stenosis. Tiny bilateral pleural effusions. Gastric lap band. Aortic atherosclerotic disease. Right renal norman culus measuring 7 mm. Small amount of free pelvic fluid incompletely characterized. IMPRESSION: Age indeterminate T12 compression fracture with 20% loss height. Recommend MRI thoracic spine. Moderate to advanced lumbar degenerative disc disease as described. Moderate to severe spinal canal stenosis L3-4 Other findings as described.
[2025-01-08] MEDS: CIPROFLOXACIN HCL 500 MG TAB PO SCH (16:01)
[2025-01-08] MEDS ORDERED: TRAM-626 PO (16:21)
--- NOTE | 2025-01-08 16:27 | DVHDS2 ---
Discharge Summary Date of Admission Jan 07, 2025 at 14:13 Date of Discharge: Jan 08, 2025 Admitting Diagnosis Follow up with injury Labs/Diagnostic Data: Laboratory Results Test 01/08/25 06:23 01/07/25 11:12 01/07/25 10:25 01/07/25 10:21 White Blood Count 6.6 10^3/uL (4.4-10.8) Red Blood Count 4.23 10^6/uL (4.0-5.20) Hemoglobin 13.6 g/dL (12.2-16.2) Hematocrit 40.9 % (36.0-46.0) Mean Corpuscular Volume 96.7 fL (80.0-100.0) Mean Corpuscular Hemoglobin 32.1 pg (28.0-32.0) Mean Corpuscular Hemoglobin Concent 33.2 g/dL (32.0-36.0) Red Cell Distribution Width 13.8 % (11.8-14.3) Platelet Count 129 10^3/uL (140-450) Mean Platelet Volume 7.6 fL (6.9-10.8) Neutrophils (%) (Auto) 72.9 % (37.0-80.0) Lymphocytes (%) (Auto) 15.4 % (10.0-50.0) Monocytes (%) (Auto) 7.6 % (0.0-12.0) Eosinophils (%) (Auto) 3.4 % (0.0-7.0) Basophils (%) (Auto) 0.7 % (0.0-2.0) Neutrophils # (Auto) 4.8 10 ^3/uL (1.6-8.6) Lymphocytes # (Auto) 1.0 10 ^3/uL (0.4-5.4) Monocytes # (Auto) 0.5 10 ^3/uL (0-1.3) Eosinophils # (Auto) 0.2 10 ^3/uL (0-0.8) Basophils # (Auto) 0 10 ^3/uL (0-0.2) Nucleated Red Blood Cells 0.0 % Sodium Level 137 mmol/L (136-145) Potassium Level 4.1 mmol/L (3.5-5.1) Chloride Level 105 mmol/L (98-107) Carbon Dioxide Level 24 mmol/L (20-31) Anion Gap 8 (5-15) Blood Urea Nitrogen 11 mg/dL (9-23) Creatinine 1.10 mg/dL (0.550-1.02) Glomerular Filtration Rate Calc 49 mL/min (>90) BUN/Creatinine Ratio 10.0 (10.0-20.0) Serum Glucose 123 mg/dL (74-106) Calcium Level 9.4 mg/dL (8.7-10.4) Total Bilirubin 1.3 mg/dL (0.2-1.0) Aspartate Amino Transferase (AST) 22 U/L (13-40) Alanine Aminotransferase (ALT) 16 U/L (7-40) Alkaline Phosphatase 57 U/L (46-116) Total Protein 6.1 g/dL (5.7-8.2) Albumin 4.0 g/dL (3.2-4.8) Thyroid Stimulating Hormone (TSH) 0.92 uIU/mL (0.55-4.78) Urine Color Colorless (Yellow) Urine Clarity Clear (Clear) Urine pH 6.5 (5.0-9.0) Urine Specific [place] 1.006 (1.001-1.035) Urine Protein Negative (Negative) Urine Ketones Negative (Negative) Urine Blood Negative /uL (Negative) Urine Nitrite 1+ (Negative) Urine Bilirubin Negative (Negative) Urine Urobilinogen Normal mg/dL (Negative) Urine Leukocyte Esterase Trace /uL (Negative) Urine RBC 1 /hpf (0 - 4) Urine Microscopic WBC 7 /HPF (0-5) Urine Squamous Epithelial Cells None seen /hpf (<5) Urine Bacteria Few /hpf (None Seen) Urine Glucose Normal mg/dL (Normal) POC Glucose 149 mg/dl (70-106) Other Laboratory Tests 01/08/25 06:23 Brief Hx & Hospital Course: History of Present Illness The patient is a 84-year-old female with past medical history of thyroid disease, hypertension, and hyperlipidemia who presented to [facility] ED with complaint of back pain. Patient reports that she was taking a box out of her closet when she suddenly fell onto the floor hitting her back with more pressure on her hips. Patient reports now she has been experiencing left-sided back pain that radiates down to her left hips, getting worse that prompted this visit. Patient was seen and evaluated in the ED, laboratory data shows WBC 5.2, platelets 124, sodium 138, potassium 4.0, BUN 15, creatinine 1.25, glucose 135, calcium 10.0, blood pressure 177/69, heart rate 110, temperature 97.8 F, O2 saturation 95% room air. Left hip x-ray revealing age indeterminate fracture of the left pubic ramus/symphysis; correlate with point tenderness and symptoms for acute fracture. Generalized weakness positive for urinary tract infection. Patient was started on IV antibiotic regimen Rocephin, please see medication orders section in the computer. On my assessment, patient denied chest pain, no headache, no dizziness, no diaphoresis, no head injury, no loss of consciousness, no numbness, no weakness, no shortness of breaths, no nausea, no vomiting, no fever, no chills. Patient was admitted for further evaluation and medical management. Course of hospitalization: Radiographic imaging reviewed. No noted fractures or pathologies from initial workup by emergency room physician and admitting hospitalist. Consultation was placed to orthopedic surgery, with no further recommendations at this time. Further evaluation of the patient reveals continued left lower extremity pain. Patient had CT scan of lumbar spine which revealed T12 compression fracture, as well as several areas of foraminal stenosis, as well as [id number] stenosis from L3-L4. These findings were discussed with with the patient and her . Patient was able to ambulate with physical therapy greater than 30 ft with a walker. At this time patient does not want to be seen in the hospital by spinal surgery or continue her current stay in the hospital. Patient will follow up with her PCP, Dr. Sea Pardo in 1-2 weeks. Patient will be provided a prescription for pain in the form of tramadol 50 mg q.8 hours as needed for [id number] pain. Both the patient and has been are agreeable with discharge plan. Primary nurse was made available. Tapia catheter will be removed. Physical examination General: Alert and Oriented x3. No acute distress. Well-nourished. Eyes: EOMI. Anicteric. HENT: Moist mucous membranes. Lungs: Clear to auscultation bilaterally. No accessory muscle use. Cardiovascular: Regular rate and rhythm. No murmur. No JVD. Abdomen: Soft, non-tender and non-distended. No palpable masses. Extremities: No edema. Non-tender. Skin: No rashes or lesions. Warm. Neurologic: No focal neurological deficits. CN II-XII grossly intact, but not individually tested. Psychiatric: Cooperative. Appropriate mood and affect. Total time spent with patient discussing and formulating plan of care: 35 minutes. This medical document was created using an electronic medical record system with [employer] system. Although this document has been carefully reviewed, there may still be some phonetic and typographical errors. These areas are purely typographical due to imperfections of the software programs, and do not reflect any compromise in the patient's medical care. Condition at Discharge: Guarded Final Diagnosis/Problems List Lumbar spinal stenosis, mechanical fall Secondary diagnosis: -rule out spinal stenosis -mechanical fall -primary hypertension -history of lumbar laminectomy -macular degeneration -hypothyroidism -UTI Discharge Disposition: Home Discharge Instruct/Medications Diet: Cardiac 2g Na,low cholest Activity: No Restrictions, As Tolerated Follow Up/Referral: Follow up with PCP, Dr. Horton in one week Medications: Ultram 50 mg p.o. q.8 hours as needed for [id number] pain Continue all previous home medications Scheduled Atorvastatin Calcium (Lipitor), 1 TAB PO DAILY, (Reported) Calcium & Phosphorus W/ Vitami (Calcium), 1 TAB PO DAILY, (Reported) Cephalexin (Keflex Capsule), 1 CAP PO QID Gabapentin (Gabapentin), 400 MG PO BID, (Reported) Metoprolol Succinate (Metoprolol Succinate Er), 50 MG PO DAILY, (Reported) Multiple Vitamins W/ Minerals (Preservision Areds), 1 DROP EACHEYE DAILY, (Reported) Potassium Chloride (Potassium Chloride ER), 10 MEQ PO DAILY, (Reported) Ramipril (Ramipril), 1 CAP PO DAILY, (Reported) Scheduled PRN Tramadol HCl (Tramadol HCl), 50 MG PO Q8HR PRN Miscellaneous Medications Levothyroxine Sodium (Levothyroxine Sodium), 100 MCG PO, (Reported) 36 Discharge Statement: "Patient was advised to return to the ER or call 911 if any headaches, dizziness, shortness of breath, chest pain, abdominal pain, bleeding, fevers, or worsening of medical condition. Patient was counseled about treatment plan, medications, possible side effects, patientverbalized understanding. All questions were answered to the best of my ability. This discharge took greater then 30 minutes in planning, reviewing documentation, counseling the patient, and discussing with other team members." ASSESSMENT ASSESSMENT Assessment Lumbar spinal stenosis, mechanical fall Date of Service: Jan 08, 2025 Billing Provider: NIA MARIE NP Common Visit Codes: 88301-QDV/OBS DISCH DAY >30min NIA MARIE NP Jan 08, 2025 16:27
== END 2025-01-08 17:40 | disposition home or self-care (01) | DRG 552 ==
LOC: EDUNIT# 09:59 → EDBD 09:59 → EDSEX 09:59 → ER 09:59 → OVERFLOW 14:13 → TELE-EAST 21:03
PROVIDERS: ADMIT Nurse Practitioner Acute Care; ATTEND Nurse Practitioner Acute Care
DX: M48.061 Spinal stenosis, lumbar region without neurogenic claudication (principal); M48.54XA Collapsed vertebra, not elsewhere classified, thoracic region, initial encounter for fracture; N39.0 Urinary tract infection, site not specified; I10 Essential (primary) hypertension; E03.9 Hypothyroidism, unspecified; S33.6XXA Sprain of sacroiliac joint, initial encounter; H35.30 Unspecified macular degeneration; E78.5 Hyperlipidemia, unspecified; M53.3 Sacrococcygeal disorders, not elsewhere classified; W18.39XA Other fall on same level, initial encounter; Y93.89 Activity, other specified; Y92.89 Other specified places as the place of occurrence of the external cause; Y99.8 Other external cause status
CPT/HCPCS: 36415; 71045; 72100; 72131; 73502; 73700; 80048; 80053; 81001; 82962; 84443; 85025; 87086; 96361; 96365; 97163; 99291; G0378; J2405

== ENCOUNTER 2025-02-06 10:18 | Inpatient (IN) | payer MEDICARE, OTHER ==
[~2025-02-06] VITALS: Ht 167.6 cm; Wt 77.8 kg
[~2025-02-06 10:18] MED LIST changes: +TRAM-626 PO
[2025-02-06] MEDS: HYDROcodone-ACET 5/325MG TAB PO ONE (11:11)
--- NOTE | 2025-02-06 11:31 | ED.PDOC ---
History of Present Illness HPI Comments 84-year-old female with a history of hypertension, dyslipidemia and thyroid disease brought in by spouse complaining of persistent low back pain radiating to the left sacroiliac area. Patient was recently admitted for the same pain after a fall, was diagnosed with a left pubic ramus fracture and T12 compression fracture, both of unclear chronicity. She was seen by ortho and diagnosed with a left SI joint strain. She was discharged on 01/08/25 and was advised to return to the ED for persistent or worsening pain or inability to ambulate. Patient states she has been unable to ambulate more than a few steps due to pain in the left sacroiliac area ever since arriving home. She states she has taken tramadol and gabapentin without relief. She states she nearly fell in the shower this morning due to inability to weight bear on the left lower extremity, but her was able to stabilize her and prevent another fall. Patient's states he is unable to assist her with transferring and ambulating. Patient denies any new injury, numbness, weakness or other symptoms. Chief Complaint: Back Pain Time Seen by MD: 10:32 Allergies: Coded Allergies: NO KNOWN ALLERGIES (Unverified , 01/08/25) Home Meds Active Scripts Tramadol HCl (Tramadol HCl) 50 Mg Tab, 50 MG PO Q8HR PRN for 5 Days, #15 TAB Prov:NIA MARIE NP 01/08/25 Cephalexin (KEFLEX CAPSULE) 250 Mg Cp, 1 CAP PO QID, #20 CAP Prov:AN SOLIS MD 10/28/20 Reported Medications Levothyroxine Sodium (Levothyroxine Sodium) 112 Mcg Tab, 100 MCG PO, TAB 10/23/20 Atorvastatin Calcium (Lipitor) 10 Mg Tab, 1 TAB PO DAILY, #90 TAB 0 Refills 10/23/20 Metoprolol Succinate (Metoprolol Succinate Er) 50 Mg Tab, 50 MG PO DAILY, TAB 10/23/20 Calcium & Phosphorus W/ Vitami (CALCIUM) Tab, 1 TAB PO DAILY, TAB 10/23/20 Multiple Vitamins W/ Minerals (PRESERVISION AREDS) Areds Tab, 1 DROP EACHEYE DAILY, DROP 10/23/20 Gabapentin (Gabapentin) 300 Mg Cap, 400 MG PO BID, CAP 10/23/20 Ramipril (Ramipril) 10 Mg Cap, 1 CAP PO DAILY, #30 CAP 0 Refills 10/23/20 Potassium Chloride (Potassium Chloride ER) 10 Meq Tab, 10 MEQ PO DAILY, TAB 10/23/20 Mode of Arrival: Ambulatory Past Medical History PAST MEDICAL HISTORY: High Lipids, HTN, Thyroid Surgical History (Other): Pertinent for lumbar laminectomy ALUM MIXER History: No Pertinent ALUM MIXER History Family History Family History: Reviewed,noncontributory to illness Social History Smoker: Non-Smoker Alcohol: Denies ETOH Use Drugs: Denies Drug Use Lives In: Home All Other Systems: Reviewed and Negative (Comprehensive systems review obtained and negative except for what is stated in the HPI.) Physical Exam General Appearance: No Apparent Distress HEENT: Other (Pupils and face symmetric. Moist mucous membranes.) Neck: Full Range of Motion, Normal Inspection Respiratory: Lungs Clear, No Accessory Muscle Use, No Respiratory Distress, Normal Breath Sounds Cardiovascular: No Edema, No JVD, Regular Rate/Rhythm Breast Exam: Deferred Gastrointestinal: Non Tender, Soft Genitalia: Deferred Pelvic: Deferred Rectal: Deferred Extremities: Normal inspection, Normal range of motion, No pedal edema, Other (Left sacroiliac area soft tissue tenderness) Neurologic: Alert (Oriented x4), Normal Affect, Normal Mood, Other (Declines to attempt to ambulate due to pain) Cerebellar Function: NOT DONE Reflexes: NOT DONE Skin: Dry, Normal Color, Warm Lymphatic: NOT DONE Was a procedure done? Was a procedure done?: No Differential Dx Considerations may include: Intractable pain, medication noncompliance, UTI, among others X-Ray, Labs, Meds, VS Vital Signs Date Time Temp Pulse Resp B/P (MAP) Pulse Ox O2 Delivery O2 Flow Rate FiO2 02/06/25 11:12 98.1 61 17 163/86 (111) 96 98.1 02/06/25 10:19 97.4 63 14 208/64 95 97.4 Lab Test 02/06/25 11:21 Range/Units White Blood Count 6.6 4.4-10.8 10^3/uL Red Blood Count 3.93 L 4.0-5.20 10^6/uL Hemoglobin 13.3 12.2-16.2 g/dL Hematocrit 38.1 36.0-46.0 % Mean Corpuscular Volume 97.0 80.0-100.0 fL Mean Corpuscular Hemoglobin 33.8 H 28.0-32.0 pg Mean Corpuscular Hemoglobin Concent 34.8 32.0-36.0 g/dL Red Cell Distribution Width 15.6 H 11.8-14.3 % Platelet Count 193 140-450 10^3/uL Mean Platelet Volume 6.6 L 6.9-10.8 fL Neutrophils (%) (Auto) 80.8 H 37.0-80.0 % Lymphocytes (%) (Auto) 10.9 10.0-50.0 % Monocytes (%) (Auto) 5.7 0.0-12.0 % Eosinophils (%) (Auto) 1.8 0.0-7.0 % Basophils (%) (Auto) 0.8 0.0-2.0 % Neutrophils # (Auto) 5.3 1.6-8.6 10 ^3/uL Lymphocytes # (Auto) 0.7 0.4-5.4 10 ^3/uL Monocytes # (Auto) 0.4 0-1.3 10 ^3/uL Eosinophils # (Auto) 0.1 0-0.8 10 ^3/uL Basophils # (Auto) 0.1 0-0.2 10 ^3/uL Nucleated Red Blood Cells 0.1 % Sodium Level 135 L 136-145 mmol/L Potassium Level 3.6 3.5-5.1 mmol/L Chloride Level 103 98-107 mmol/L Carbon Dioxide Level 20 20-31 mmol/L Anion Gap 12 5-15 Blood Urea Nitrogen 14 9-23 mg/dL Creatinine 1.16 H 0.550-1.02 mg/dL Glomerular Filtration Rate Calc 46 >90 mL/min BUN/Creatinine Ratio 12.1 10.0-20.0 Serum Glucose 152 H 74-106 mg/dL Calcium Level 9.2 8.7-10.4 mg/dL Current Medications Medications (Trade) Dose Ordered Sig/Sharif Route Start Time Stop Time Status Last Admin Acetaminophen/ Hydrocodone Bitart ([place] 5/325MG Tab) 1 tab ONCE ONCE PO 02/06/25 11:15 02/06/25 11:16 DC 02/06/25 11:11 X-Ray, Labs, Meds, VS Comment 84-year-old female with a history of hypertension, dyslipidemia and thyroid disease brought in by spouse complaining of persistent left sacroiliac pain and inability to ambulate after recent admission for the same pain. Vitals remarkable for BP 208/64 Exam remarkable for left sacroiliac area tenderness Rhythm strip independently interpreted by me: Sinus rhythm, rate 63, no ectopy. CBC unremarkable, basic metabolic panel remarkable for sodium 135, creatinine 1.16, UA pending Patient treated with the following in the ED: [place] 5/325 mg p.o. On re-evaluation, blood pressure is improving. Pain is improving. Vitals were stable. Plan is to readmit the patient for re-evaluation by ortho, PT/OT evaluation and pain control. Time of 1ST Reevaluation: 11:30 Reevaluation 1ST: Improved Patient Education/Counseling: Diagnosis, Treatment, Need For Follow Up Family Education/Counseling: Diagnosis, Treatment, Need For Follow Up SEPSIS Sepsis Screen Date sepsis recognized/suspect: Feb 06, 2025 Time Sepsis recognized/suspect: 1024 Recent Procedure: No On Antibiotic Therapy: No Respiratory Rate >20: No Heart Rate >90: No Temp<36 C (96.8 F) or >38.3 C: No SBP <90 or MAP <65 mmHG: No New Acute Mental Status Change: No Is the patient on CPAP, BIPAP,: No Physician Orders Urinalysis (02/06/25 11:02) Vital Signs Date Time Temp Pulse Resp B/P (MAP) Pulse Ox O2 Delivery O2 Flow Rate FiO2 02/06/25 11:12 98.1 61 17 163/86 (111) 96 98.1 02/06/25 10:19 97.4 63 14 208/64 95 97.4 Laboratory Tests Test 02/06/25 11:21 White Blood Count 6.6 10^3/uL (4.4-10.8) Medications Medications Dose Ordered Sig/Sharif Route Start Time Stop Time Status Last Admin Dose Admin Acetaminophen/ Hydrocodone Bitart 1 tab ONCE ONCE PO 02/06/25 11:15 02/06/25 11:16 DC 02/06/25 11:11 Departure 1 Departure Time of Disposition: 11:31 Impression: Primary Impression: Intractable back pain Additional Impression: At risk for falls Disposition: ADMITTED INPATIENT Admit to: Med Surg Condition: Fair Critical Care Note Critical Care Time?: No Stability Stability form required: No Heart Score Heart Score: Heart Score Response (Comments) Value History N/A 0 EKG N/A 0 Age N/A 0 Risk Factors N/A 0 Troponin N/A 0 Total 0 AU ISABEL WOLF MD Feb 06, 2025 11:31
[2025-02-06 12:00] LABS: Hematocrit 38.1 % (36.0-46.0); Hemoglobin 13.3 g/dL (12.2-16.2); Mean Corpuscular Hemoglobin 33.8 pg (28.0-32.0); Mean Corpuscular Volume 97.0 fL (80.0-100.0); Nucleated Red Blood Cells % 0.1 %
[2025-02-06 12:09] LABS: Chloride 103 mmol/L (98-107); Potassium 3.6 mmol/L (3.5-5.1)
[2025-02-06 12:10] LABS: Anion Gap 12 (5-15); Calcium 9.2 mg/dL (8.7-10.4); Carbon Dioxide 20 mmol/L (20-31)
[2025-02-06 12:11] LABS: Sodium 135 mmol/L (136-145)
[2025-02-06 12:15] LABS: BUN/Creatinine Ratio 12.1 (10.0-20.0); Blood Urea Nitrogen 14 mg/dL (9-23)
[2025-02-06 12:16] LABS: Glucose 152 mg/dL (74-106)
[2025-02-06] MEDS ORDERED: NITROGLYCERIN 0.4 MG SL TAB SL PRN (13:00)
[2025-02-06] MEDS: ENOXAPARIN SOD 40 MG/0.4 ML SYRINGE SC SCH (13:00)
[2025-02-06] MEDS ORDERED: DOCUSATE SOD 100 MG CAP PO PRN (13:00)
--- NOTE | 2025-02-06 13:03 | DVHHP2 ---
History of Present Illness Reason for Visit: back pain History of Present Illness 84-year-old female with a past medical history of hypertension, hyperlipidemia, hypothyroidism, and prior lumbar laminectomy presents with worsening low back pain. She reports that she sustained a fall and was seen on January 26, 2025, here , where she was diagnosed with left sacroiliac (SI) joint strain, possible spinal soft tissue injury, and a possible old nondisplaced left pubic rami fracture. She was discharged home but states she prescribed pain medications tramadol at that time. Since discharge, she has continued to experience severe pain in her left hip radiating down her left leg, especially when ambulating. She denies bowel or bladder incontinence, numbness, or tingling. In the ED today, CT lumbar spine revealed a T2 compression fracture with approximately 20% loss of vertebral height and degenerative joint disease with severe spinal canal stenosis between L3L4. [place] was provided with symptom improvement. She will be admitted for acute intractable low back pain, orthopedic spine evaluation, and physical therapy evaluation. Past Medical History See HPI above Past Surgical History See HPI above Family History Reviewed, non-contributory to the management of this case. Past Social History The patient lives at home, denies smoking, alcohol or illicit drugs abuse. Review of Systems Constitutional: No: Fever, Chills, Sweats, Weakness, Malaise, Other Eyes: No: Pain, Vision change, Conjunctivae inflammation, Eyelid inflammation, Other, Redness ENT: No: Ear pain, Ear discharge, Nose pain, Nose discharge, Nose congestion, Mouth pain, Mouth swelling, Throat pain, Throat swelling, Other Respiratory: No: Cough, Dry, Shortness of breath, SOB with excertion, Wheezing, Hemoptysis, Pleuritic Pain, Sputum, Wheezing, Other Cardiovascular: No: Chest Pain, Palpitations, Orthopnea, Paroxysmal Noc. Dyspnea, Edema, Lt Headedness, Other Gastrointestinal: No: Nausea, Vomiting, Abdominal Pain, Diarrhea, Constipation, Melena, Hematochezia, Other Genitourinary: No Dysuria, No Frequency, No Incontinence, No Hematuria, No Retention, No Other Musculoskeletal: back pain; No: other, neck pain, shoulder pain, arm pain, hand pain, leg pain, foot pain Skin: No: Rash, Lesions, Jaundice, Bruising, Other Neurological: No: Weakness, Numbness, Incoordination, Change in speech, Confusion, Seizures, Other Allergies: Coded Allergies: NO KNOWN ALLERGIES (Unverified , 01/08/25) Exam Vital Signs Vital Signs Date Time Temp Pulse Resp B/P (MAP) Pulse Ox O2 Delivery O2 Flow Rate FiO2 02/06/25 11:12 98.1 61 17 163/86 (111) 96 98.1 General Appearance: Alert, Oriented X3, Cooperative, No acute distress HEENT: Atraumatic, PERRLA, EOMI, Mucous membr. moist/pink Respiratory: Clear to auscultation, Normal air movement Cardiovascular: Regular rate, Normal S1, Normal S2, No murmurs Abdominal: Normal bowel sounds, Soft, No tenderness, No hepatospenomegaly, No masses Extremities: No clubbing, No cyanosis, No edema, Normal pulses, No tenderness/swelling Skin: No rashes, No breakdown, No significant lesion Neuro: Other (Paraspinal low lower lumbar tenderness neuro nonfocal) Psych/Mental Status: Mental status NL, Mood NL Labs/Xrays CT L-spine shows T12 compression fracture with 20% loss high DJD severe spinal canal stenosis between L3-L4 I reviewed labs, imaging CT scan abdomen pelvis, EKG and all diagnostic studies on this patient from ED records and the medical chart Labs Test 02/06/25 11:21 Range/Units White Blood Count 6.6 4.4-10.8 10^3/uL Red Blood Count 3.93 L 4.0-5.20 10^6/uL Hemoglobin 13.3 12.2-16.2 g/dL Hematocrit 38.1 36.0-46.0 % Mean Corpuscular Volume 97.0 80.0-100.0 fL Mean Corpuscular Hemoglobin 33.8 H 28.0-32.0 pg Mean Corpuscular Hemoglobin Concent 34.8 32.0-36.0 g/dL Red Cell Distribution Width 15.6 H 11.8-14.3 % Platelet Count 193 140-450 10^3/uL Mean Platelet Volume 6.6 L 6.9-10.8 fL Neutrophils (%) (Auto) 80.8 H 37.0-80.0 % Lymphocytes (%) (Auto) 10.9 10.0-50.0 % Monocytes (%) (Auto) 5.7 0.0-12.0 % Eosinophils (%) (Auto) 1.8 0.0-7.0 % Basophils (%) (Auto) 0.8 0.0-2.0 % Neutrophils # (Auto) 5.3 1.6-8.6 10 ^3/uL Lymphocytes # (Auto) 0.7 0.4-5.4 10 ^3/uL Monocytes # (Auto) 0.4 0-1.3 10 ^3/uL Eosinophils # (Auto) 0.1 0-0.8 10 ^3/uL Basophils # (Auto) 0.1 0-0.2 10 ^3/uL Nucleated Red Blood Cells 0.1 % Sodium Level 135 L 136-145 mmol/L Potassium Level 3.6 3.5-5.1 mmol/L Chloride Level 103 98-107 mmol/L Carbon Dioxide Level 20 20-31 mmol/L Anion Gap 12 5-15 Blood Urea Nitrogen 14 9-23 mg/dL Creatinine 1.16 H 0.550-1.02 mg/dL Glomerular Filtration Rate Calc 46 >90 mL/min BUN/Creatinine Ratio 12.1 10.0-20.0 Serum Glucose 152 H 74-106 mg/dL Calcium Level 9.2 8.7-10.4 mg/dL SEPSIS Sepsis Screen Date sepsis recognized/suspect: Feb 06, 2025 Time Sepsis recognized/suspect: 1024 Recent Procedure: No On Antibiotic Therapy: No Respiratory Rate >20: No Heart Rate >90: No Temp<36 C (96.8 F) or >38.3 C: No SBP <90 or MAP <65 mmHG: No New Acute Mental Status Change: No Is the patient on CPAP, BIPAP,: No Physician Orders Urinalysis (02/06/25 11:02) Levothyroxine Tablet (Synthroid Tablet) (02/07/25 10:00) Metoprolol Xl Succinate (Toprol Xl) (02/07/25 10:00) Multiple Vitamin W Mineral Tab (Mvi W/ M (02/07/25 10:00) Ramipril Capsule (Altace Capsule) (02/07/25 10:00) (Nf) Atorvastatin Calcium (Lipitor) (02/07/25 10:00) (Nf) Calcium & Phosphorus W/ Vitami (Darian (02/07/25 10:00) Vital Signs Date Time Temp Pulse Resp B/P (MAP) Pulse Ox O2 Delivery O2 Flow Rate FiO2 02/06/25 11:12 98.1 61 17 163/86 (111) 96 98.1 02/06/25 10:19 97.4 63 14 208/64 95 97.4 Laboratory Tests Test 02/06/25 11:21 White Blood Count 6.6 10^3/uL (4.4-10.8) Medications Medications Dose Ordered Sig/Sharif Route Start Time Stop Time Status Last Admin Dose Admin Acetaminophen/ Hydrocodone Bitart 1 tab ONCE ONCE PO 02/06/25 11:15 02/06/25 11:16 DC 02/06/25 11:11 1 TAB Assessment/Plan Assessment/Plan 84-year-old female withAcute intractable low back pain due to T2 compression fracture and severe lumbar spinal stenosis after recent fall. Acute Low Back Pain due to T2 Compression Fracture with 20% loss of height found on ct l spine Admit for pain control and mobility support. Orthopedic spine consult for fracture management and possible bracing. Pain control with [place] PRN; consider muscle relaxant if spasm noted. Fall precautions in place. Pt consult fu results monitor for neuro changes acute Severe Lumbar Spinal Canal Stenosis at L3L4 PT evaluation for gait safety and strengthening. Monitor for neurological deficits; if present, urgent re-evaluation by ortho/neurosurgery. Possible Old Nondisplaced Left Pubic Rami Fracture Weight-bearing as tolerated per ortho recommendations. Continue pain control. chronic problems Hypertension Continue home antihypertensive regimen. Hyperlipidemia Continue statin therapy. Hypothyroidism Continue home levothyroxine; check TSH if not recently done. History of lumbar laminectomy FEN / PPx hl Regular diet as tolerated. Prophylaxis (PPx): DVT: SCDs; pharmacologic prophylaxis if no contraindication from fracture or bleeding risk. GI no gi ppx since no hx of gerds or gi bleed Disposition: Admit to medical floor for pain control, orthopedic spine evaluation, PT/OT, and fall prevention. Discharge when pain is controlled and safe ambulation achieved. Plan discussed with: Patient My Orders Orders - ABRIL MARROQUIN DNP Procedure Category Date Status Time Levothyroxine Tablet PHA 02/07/25 Verified (Synthroid Tablet) 10:00 Metoprolol Xl PHA 02/07/25 Verified Succinate (Toprol Xl) 10:00 Multiple Vitamin W PHA 02/07/25 Verified Mineral Tab (Mvi W/ M 10:00 Ramipril Capsule PHA 02/07/25 Verified (Altace Capsule) 10:00 (Nf) Atorvastatin PHA 02/07/25 Verified Calcium (Lipitor) 10:00 (Nf) Calcium & PHA 02/07/25 Verified Phosphorus W/ Vitami 10:00 Date of Service: Feb 06, 2025 Billing Provider: ABRIL MARROQUIN DNP Common Visit Codes: [id number] INP/OBS CARE (HIGH) ABRIL MARROQUIN DNP Feb 06, 2025 13:03
[2025-02-06 15:32] VITALS: PULSE 86; RESP 16; O2SAT 96
[2025-02-06 15:45] VITALS: BP 208/93; PULSE 61; PULSE 92; RESP 18; TEMP 98; O2SAT 95; O2SAT 96
[2025-02-06 15:53] VITALS: BP 208/93; PULSE 61; RESP 18; TEMP 98; O2SAT 95
[2025-02-06] MEDS ORDERED: HYDR50TA47 PO (16:24)
[2025-02-06] MEDS: RAMIPRIL 10 MG CAP PO ONE (16:42)
[2025-02-06] MEDS: METOPROLOL TARTRATE 50 MG TAB PO ONE (18:45)
[2025-02-06] MEDS: ATORVASTATIN 20 MG TAB PO SCH (21:59)
[2025-02-06] MEDS: METOPROLOL TARTRATE 50 MG TAB PO SCH (22:00)
[2025-02-06] MEDS: HYDROcodone-ACET 5/325MG TAB PO PRN (22:44)
[2025-02-07 01:00] VITALS: BP 154/79; PULSE 66; RESP 16; TEMP 98.2; O2SAT 97
[2025-02-07] MEDS: MORPHINE SULFATE INJ 2 MG/ml SYRG IV PRN (01:33)
[2025-02-07] MEDS: hydrALAZINE HCL 20 MG/ML VL IV PRN (02:59)
[2025-02-07 05:00] VITALS: BP 156/64; PULSE 74; RESP 18; TEMP 97.6; O2SAT 97
[2025-02-07] MEDS: LEVOTHYROXINE SODIUM 100 MCG TAB PO SCH (06:03)
[2025-02-07] MEDS: ONDANSETRON HCL 4 MG/2 ML VIAL IV PRN (08:01)
[2025-02-07 09:30] VITALS: BP 176/83; PULSE 63; RESP 16; TEMP 97.9; O2SAT 95
[2025-02-07] MEDS: PHOSPHORUS PO SCH (10:00)
[2025-02-07] MEDS: VITAMI PO SCH (10:00)
[2025-02-07] MEDS: CALCIUM PO SCH (10:00)
[2025-02-07] MEDS ORDERED: METOPROLOL SUCCINATE XL 50 MG TAB PO SCH (10:00)
[2025-02-07] MEDS: MULTIPLE VITAMINS W/ MINERALS TAB PO SCH (10:25)
[2025-02-07] MEDS: RAMIPRIL 10 MG CAP PO SCH (10:25)
[2025-02-07] MEDS ORDERED: CYCLOBENZAPRINE HCL 10 MG TAB PO PRN (12:00)
--- NOTE | 2025-02-07 12:36 | DVHPN2 ---
Subjective Patient reports having severe difficulty ambulating. Continues to have worsening sharp shooting pain down her left hip and leg. Reviewed: Care Plan, H&P, Labs, Medications Changes from previous H/P or p: No Changes General: Per HPI Eyes: No Pain, No Vision change, No Conjunctivae inflammation, No Eyelid inflammation, No Other, No Redness ENT: No Ear pain, No Ear discharge, No Nose pain, No Nose discharge, No Nose congestion, No Mouth pain, No Mouth swelling, No Throat pain, No Throat swelling, No Other Cardiovascular: No Chest Pain, No Palpitations, No Orthopnea, No Paroxysmal Noc. Dyspnea, No Edema, No Lt Headedness, No Other Respiratory: No Cough, No Dry, No Shortness of breath, No SOB with excertion, No Wheezing, No Hemoptysis, No Pleuritic Pain, No Sputum, No Other Gastrointestinal: No Nausea, No Vomiting, No Abdominal Pain, No Diarrhea, No Constipation, No Melena, No Hematochezia, No Other Genitourinary: No Dysuria, No Frequency, No Incontinence, No Hematuria, No Retention, No Other Musculoskeletal: No other, No neck pain, No shoulder pain, No arm pain; back pain; No hand pain, No leg pain, No foot pain Skin: No Rash, No Lesions, No Jaundice, No Bruising, No Other Objective Vitals Vital Signs Date Time Temp Pulse Resp B/P (MAP) Pulse Ox O2 Delivery O2 Flow Rate FiO2 02/07/25 10:25 170/96 02/07/25 09:30 97.9 63 16 95 97.9 02/07/25 08:00 Room Air* 0 21 Intake/Output Intake and Output 02/07/25 07:00 Intake Total 570 ml Balance 570 ml Intake Oral 570 ml # Voids 8 General Appearance: Alert, Oriented X3, Cooperative, mild distress HEENT: Atraumatic, PERRLA Lungs: Clear to auscultation, Normal air movement Cardiovascular: Normal S1, Normal S2 Abdomen: Normal bowel sounds, Soft, No tenderness, No hepatospenomegaly Back: Flank Tenderness, Midline Tenderness Musculoskeletal: Normal sensory function, Normal motor function Neuro: Normal speech, Cranial nerves 3-12 NL, Other (Abnormal gait) Skin: Dry, Intact Psych/Mental Status: Mental status NL, Mood NL Medications Current Medications Medications Dose Ordered Sig/Sharif Route Start Time Stop Time Status Last Admin Dose Admin Levothyroxine Sodium 100 mcg QAM PO 02/07/25 07:00 02/07/25 06:03 100 MCG Multivitamins/ Minerals 1 tab DAILY PO 02/07/25 10:00 02/07/25 10:25 1 TAB Ramipril 10 mg DAILY PO 02/07/25 10:00 02/07/25 10:25 10 MG Atorvastatin Calcium 10 mg HS PO 02/06/25 22:00 02/06/25 21:59 10 MG Patient Own Medication 1 tab DAILY PO 02/07/25 10:00 Acetaminophen/ Hydrocodone Bitart 1 tab Q4HP PRN PO 02/06/25 13:00 02/07/25 04:59 1 TAB Ondansetron HCl 4 mg Q4HP PRN IV 02/06/25 13:00 02/07/25 08:01 4 MG Docusate Sodium 100 mg BIDPRN PRN PO 02/06/25 13:00 Morphine Sulfate 2 mg Q4HPRN PRN IV 02/06/25 13:00 02/07/25 01:33 2 MG Enoxaparin Sodium 40 mg DAILY SC 02/06/25 13:00 02/07/25 10:26 40 MG Nitroglycerin 0.4 mg Q5MINP PRN SL 02/06/25 13:00 Hydralazine HCl 50 mg Q12HR PO 02/06/25 22:00 02/07/25 10:24 50 MG Metoprolol Tartrate 50 mg BID PO 02/06/25 22:00 02/07/25 08:02 50 MG Hydralazine HCl 10 mg Q6HP PRN IV 02/06/25 18:45 02/07/25 02:59 10 MG Dexamethasone Sodium Phosphate 4 mg Q8HR IV 02/07/25 14:00 02/08/25 06:01 Cyclobenzaprine HCl 5 mg Q8HPRN PRN PO 02/07/25 12:00 Laboratory Results Laboratory Tests 02/06/25 11:21 Labs and/or images reviewed: Labs reviewed by me, Image(s) reviewed by me Assessment/Plan Assessment/Plan Impression: -lumbar spinal stenosis with T12 fracture -bilateral lower extremity radiculopathy -primary hypertension -dyslipidemia -hypothyroidism Plan: -spine surgery consultation -trial of IV Decadron -restart gabapentin -pain management: Continue [place], add Flexeril for muscle spasms -PUD, DVT prophylaxis -repeat labs in a.m. Total time spent with patient discussing and formulating plan of care: 35 minutes. This medical document was created using an electronic medical record system with [email or web address] dictation system. Although this document has been carefully reviewed, there may still be some phonetic and typographical errors. These areas are purely typographical due to imperfections of the software programs, and do not reflect any compromise in the patient's medical care. Plan discussed with: Patient, Spouse, Other (RN) My Orders Orders - NIA MARIE NP Procedure Category Date Status Time Lumbar Spine Wo MRI 02/07/25 Logged Contrast 11:15 Dexamethasone PHA 02/07/25 In Process Injection (Decadron 14:00 [address]. Radu CONS 02/07/25 Transmitted [place](Spine) 11:57 Cyclobenzaprine PHA 02/07/25 In Process Tablet (Flexeril 12:00 Date of Service: Feb 07, 2025 Billing Provider: NIA MARIE NP Common Visit Codes: [id number] INP/OBS CARE(HIGH) NIA MARIE NP Feb 07, 2025 12:36
[2025-02-07 13:00] VITALS: BP 165/87; PULSE 69; RESP 16; TEMP 97.5; O2SAT 95
[2025-02-07 17:06] VITALS: BP 153/81; PULSE 59; RESP 16; TEMP 98; O2SAT 95
[2025-02-07 21:00] VITALS: BP 176/91; PULSE 64; RESP 16; TEMP 98; O2SAT 94
[2025-02-07] MEDS: GABAPENTIN 100 MG CAP PO SCH (23:14)
[2025-02-08 01:00] VITALS: BP 174/79; PULSE 63; RESP 15; TEMP 97.1; O2SAT 94
[2025-02-08 04:49] VITALS: BP 191/90; PULSE 60; RESP 17; TEMP 96.6; O2SAT 94
[2025-02-08 07:20] LABS: Hematocrit 41.5 % (36.0-46.0); Hemoglobin 14.2 g/dL (12.2-16.2); Mean Corpuscular Hemoglobin 33.7 pg (28.0-32.0); Mean Corpuscular Volume 98.6 fL (80.0-100.0); Nucleated Red Blood Cells % 0.1 %
[2025-02-08 07:40] LABS: Alanine Aminotransferase 13 U/L (7-40); Anion Gap 12 (5-15); BUN/Creatinine Ratio 9.2 (10.0-20.0); Chloride 102 mmol/L (98-107); Potassium 3.8 mmol/L (3.5-5.1); Total Protein 6.8 g/dL (5.7-8.2)
[2025-02-08 07:41] LABS: Albumin 4.4 g/dL (3.2-4.8)
[2025-02-08 07:42] LABS: Bilirubin, Total 0.7 mg/dL (0.2-1.0)
[2025-02-08 07:47] LABS: Alkaline Phosphatase 210 U/L (46-116); Blood Urea Nitrogen 9 mg/dL (9-23); Calcium 8.7 mg/dL (8.7-10.4); Carbon Dioxide 19 mmol/L (20-31); Glucose 218 mg/dL (74-106); Sodium 133 mmol/L (136-145)
[2025-02-08 08:38] VITALS: BP 151/71; PULSE 75; RESP 18; TEMP 98.2; O2SAT 95
--- NOTE | 2025-02-08 10:24 | DVHINCON2 ---
Consultation - Spinal Surgery Date Seen: Feb 08, 2025 History of Present Illness History of Present Illness incapacitating back pain from recent fall. She has history of prior laminectomy and has severe chronic lw back pain radiating down both legs to the feet with severe parasthesias/weakness/numbness in the LE THe falls have been increasing in numb lately and the most recent on caused the symptoms no bowel or bladder incontinence no new onset balance trouble other than the chronic issues no f/c/night sweats The fall results in severe pain and CT scan shows T12 deformity consistent with fracture of unknown time line based on my CT scan image review Allergies and medications Allergies: Coded Allergies: NO KNOWN ALLERGIES (Unverified , 01/08/25) Home Meds Active Scripts Tramadol HCl (Tramadol HCl) 50 Mg Tab, 50 MG PO Q8HR PRN for 5 Days, #15 TAB Prov:NIA MARIE NP 01/08/25 Cephalexin (KEFLEX CAPSULE) 250 Mg Cp, 1 CAP PO QID, #20 CAP Prov:AN SOLIS MD 10/28/20 Reported Medications Hydralazine Hcl (Hydralazine Hcl) 50 Mg Tab, 50 MG PO BID for 30 Days, MG 02/06/25 Levothyroxine Sodium (Levothyroxine Sodium) 112 Mcg Tab, 100 MCG PO, TAB 10/23/20 Atorvastatin Calcium (Lipitor) 10 Mg Tab, 1 TAB PO DAILY, #90 TAB 0 Refills 10/23/20 Metoprolol Succinate (Metoprolol Succinate Er) 50 Mg Tab, 50 MG PO DAILY, TAB 10/23/20 Calcium & Phosphorus W/ Vitami (CALCIUM) Tab, 1 TAB PO DAILY, TAB 10/23/20 Multiple Vitamins W/ Minerals (PRESERVISION AREDS) Areds Tab, 1 DROP EACHEYE DAILY, DROP 10/23/20 Gabapentin (Gabapentin) 300 Mg Cap, 400 MG PO BID, CAP 10/23/20 Ramipril (Ramipril) 10 Mg Cap, 1 CAP PO DAILY, #30 CAP 0 Refills 10/23/20 Potassium Chloride (Potassium Chloride ER) 10 Meq Tab, 10 MEQ PO DAILY, TAB 10/23/20 Review of systems Review of Systems: HEENT:Normal, CVS:Normal, RESPIRATORY:Normal, GI:Normal, :Normal, MSK:Abnormal Examination Vital signs Vital Signs Date Time Temp Pulse Resp B/P (MAP) Pulse Ox O2 Delivery O2 Flow Rate FiO2 02/08/25 08:38 98.2 75 18 151/71 (97) 95 98.2 02/08/25 08:00 Room Air* 0 21 Medications Current Medications Medications (Trade) Dose Ordered Sig/Sharif Route PRN Reason Start Time Stop Time Status Last Admin Dexamethasone Sodium Phosphate (Decadron Injection) 4 mg Q8HR IV 02/07/25 14:00 02/08/25 06:01 DC 02/08/25 06:12 Cyclobenzaprine HCl (Flexeril Tablet) 5 mg Q8HPRN PRN PO FOR MUSCLE SPASM 02/07/25 12:00 Gabapentin (Neurontin Capsule) 200 mg BID PO 02/07/25 22:00 02/07/25 23:14 Laboratory Labs Test 02/08/25 06:51 Range/Units White Blood Count 5.8 4.4-10.8 10^3/uL Red Blood Count 4.21 4.0-5.20 10^6/uL Hemoglobin 14.2 12.2-16.2 g/dL Hematocrit 41.5 36.0-46.0 % Mean Corpuscular Volume 98.6 80.0-100.0 fL Mean Corpuscular Hemoglobin 33.7 H 28.0-32.0 pg Mean Corpuscular Hemoglobin Concent 34.2 32.0-36.0 g/dL Red Cell Distribution Width 15.6 H 11.8-14.3 % Platelet Count 193 140-450 10^3/uL Mean Platelet Volume 6.1 L 6.9-10.8 fL Neutrophils (%) (Auto) 91.4 H 37.0-80.0 % Lymphocytes (%) (Auto) 7.3 L 10.0-50.0 % Monocytes (%) (Auto) 1.2 0.0-12.0 % Eosinophils (%) (Auto) 0.0 0.0-7.0 % Basophils (%) (Auto) 0.1 0.0-2.0 % Neutrophils # (Auto) 5.3 1.6-8.6 10 ^3/uL Lymphocytes # (Auto) 0.4 0.4-5.4 10 ^3/uL Monocytes # (Auto) 0.1 0-1.3 10 ^3/uL Eosinophils # (Auto) 0 0-0.8 10 ^3/uL Basophils # (Auto) 0 0-0.2 10 ^3/uL Nucleated Red Blood Cells 0.1 % Sodium Level 133 L 136-145 mmol/L Potassium Level 3.8 3.5-5.1 mmol/L Chloride Level 102 98-107 mmol/L Carbon Dioxide Level 19 L 20-31 mmol/L Anion Gap 12 5-15 Blood Urea Nitrogen 9 9-23 mg/dL Creatinine 0.98 0.550-1.02 mg/dL Glomerular Filtration Rate Calc 57 >90 mL/min BUN/Creatinine Ratio 9.2 L 10.0-20.0 Serum Glucose 218 H 74-106 mg/dL Calcium Level 8.7 8.7-10.4 mg/dL Total Bilirubin 0.7 0.2-1.0 mg/dL Aspartate Amino Transferase (AST) 20 13-40 U/L Alanine Aminotransferase (ALT) 13 7-40 U/L Alkaline Phosphatase 210 H 46-116 U/L Total Protein 6.8 5.7-8.2 g/dL Albumin 4.4 3.2-4.8 g/dL Microbiology Date/Time Source Procedure Growth Status 02/07/25 01:30 Nose MRSA Screen - Final Complete [place] [address] Ph: [phone] DIAGNOSTIC IMAGING Diagnostic Imaging Report : [id number] Signed PATIENT: ANGELA COLE ACCT: [id number] UNIT: [id number] : 1940 LOC: [facility] AGE / SEX: 84 / F ADM STATUS: ADM IN SERVICE 1254 ORDERING PHYSICIAN: NIA MARIE NP PROCEDURE(s): LS2CT - LS SPINE WO CONTRAST REASON: back pain, radiculopathy ORDER NUMBER(s): [id number], ACCESSION NUMBER(s): [id number] CT LS SPINE WO CONTRAST Indication: back pain, radiculopathy EXAM DATE: 01/08/2025 01:12 PM COMPARISON: None TECHNIQUE: CT of the lumbar spine without intravenous contrast. RADIATION DOSE: CTDIvol: 37 mGy, DLP: 1160.9 mGy*cm FINDINGS: Age-indeterminate T12 compression fracture deformity with 20% loss of height and depression of the superior endplate. The lumbar vertebral body heights are maintained. Moderate to advanced multilevel disc space narrowing most pronounced at L2-3, L5-S1.5 mm an terolisthesis of L3 upon L4. Moderate to advanced lumbar facet hypertrophic changes. Moderate to severe neural foraminal stenosis at L3-4, L5-S1. Moderate neural foraminal stenosis at L2-3, L4-5. Thecal sac measures 6 mm at L3-4 consistent with moderate to severe spinal canal stenosis. Tiny bilateral pleural effusions. Gastric lap band. Aortic atherosclerotic disease. Right renal calculus measuring 7 mm. Small amount of free pelvic fluid incompletely characterized. IMPRESSION: Age indeterminate T12 compression fracture with 20% loss height. Recommend MRI thoracic spine. Moderate to advanced lumbar degenerative disc disease as described. Moderate to severe spinal canal stenosis L3-4 Other findings as described. ATED BY: GEOFF KRUEGER MD DICTATED DATE/TIME: 01/08/251516 SIGNED BY: GEOFF KRUEGER MD SIGNED DATE/TIME: 01/08/251516 CC: Examination: GENERAL:Normal, NECK:Normal, LUNGS:Normal, ABDOMEN:Abnormal, MSK:Abnormal, NEURO:Abnormal, :Normal Problem List/Assessment/Plan Problems: (1) Closed compression fracture of thoracic vertebra Assessment and Plan assessment: severe lumbar spine stenosis causing incpacitating neurogenic claudication resulting in more and more falls wi We need to make sure the most recent fall has not resulted in a new fracture MRI lumbar spine is required Plan discussed with Plan discussed with: Patient LAKISHA VILLANUEVA MD Feb 08, 2025 10:24
[2025-02-08 15:03] VITALS: BP 129/95; PULSE 76; RESP 20; TEMP 98; O2SAT 94
--- NOTE | 2025-02-08 15:09 | DVHPN2 ---
Subjective Patient denies any discomfort today. Reviewed: Care Plan, H&P, Labs, Medications Changes from previous H/P or p: Changes General: Per HPI Eyes: No Pain, No Vision change, No Conjunctivae inflammation, No Eyelid inflammation, No Other, No Redness ENT: No Ear pain, No Ear discharge, No Nose pain, No Nose discharge, No Nose congestion, No Mouth pain, No Mouth swelling, No Throat pain, No Throat swelling, No Other Cardiovascular: No Chest Pain, No Palpitations, No Orthopnea, No Paroxysmal Noc. Dyspnea, No Edema, No Lt Headedness, No Other Respiratory: No Cough, No Dry, No Shortness of breath, No SOB with excertion, No Wheezing, No Hemoptysis, No Pleuritic Pain, No Sputum, No Other Gastrointestinal: No Nausea, No Vomiting, No Abdominal Pain, No Diarrhea, No Constipation, No Melena, No Hematochezia, No Other Genitourinary: No Dysuria, No Frequency, No Incontinence, No Hematuria, No Retention, No Other Musculoskeletal: No other, No neck pain, No shoulder pain, No arm pain; back pain; No hand pain, No leg pain, No foot pain Skin: No Rash, No Lesions, No Jaundice, No Bruising, No Other Objective Vitals Vital Signs Date Time Temp Pulse Resp B/P (MAP) Pulse Ox O2 Delivery O2 Flow Rate FiO2 02/08/25 15:03 98.0 76 20 129/95 (106) 94 98.0 02/08/25 08:00 Room Air* 0 21 Intake/Output Intake and Output 02/08/25 07:00 Intake Total 1100 ml Output Total 4 ml Balance 1096 ml Intake Oral 1100 ml Output Urine Total 4 ml General Appearance: Alert, Oriented X3, Cooperative, mild distress HEENT: Atraumatic, PERRLA Lungs: Clear to auscultation, Normal air movement Cardiovascular: Normal S1, Normal S2 Abdomen: Normal bowel sounds, Soft, No tenderness, No hepatospenomegaly Back: Flank Tenderness, Midline Tenderness Musculoskeletal: Normal sensory function, Normal motor function Neuro: Normal speech, Cranial nerves 3-12 NL, Other (Abnormal gait) Skin: Dry, Intact Psych/Mental Status: Mental status NL, Mood NL Medications Current Medications Medications Dose Ordered Sig/Sharif Route Start Time Stop Time Status Last Admin Dose Admin Levothyroxine Sodium 100 mcg QAM PO 02/07/25 07:00 02/08/25 06:12 100 MCG Multivitamins/ Minerals 1 tab DAILY PO 02/07/25 10:00 02/08/25 10:29 1 TAB Ramipril 10 mg DAILY PO 02/07/25 10:00 02/08/25 10:30 10 MG Atorvastatin Calcium 10 mg HS PO 02/06/25 22:00 02/07/25 23:13 10 MG Patient Own Medication 1 tab DAILY PO 02/07/25 10:00 Acetaminophen/ Hydrocodone Bitart 1 tab Q4HP PRN PO 02/06/25 13:00 02/07/25 20:56 1 TAB Ondansetron HCl 4 mg Q4HP PRN IV 02/06/25 13:00 02/07/25 08:01 4 MG Docusate Sodium 100 mg BIDPRN PRN PO 02/06/25 13:00 Morphine Sulfate 2 mg Q4HPRN PRN IV 02/06/25 13:00 02/07/25 01:33 2 MG Enoxaparin Sodium 40 mg DAILY SC 02/06/25 13:00 02/08/25 10:30 40 MG Nitroglycerin 0.4 mg Q5MINP PRN SL 02/06/25 13:00 Metoprolol Tartrate 50 mg BID PO 02/06/25 22:00 02/08/25 10:29 50 MG Hydralazine HCl 10 mg Q6HP PRN IV 02/06/25 18:45 02/08/25 12:20 10 MG Cyclobenzaprine HCl 5 mg Q8HPRN PRN PO 02/07/25 12:00 Gabapentin 200 mg BID PO 02/07/25 22:00 02/08/25 10:30 200 MG Methylprednisolone Sodium Succinate 80 mg BID IV 02/08/25 22:00 Hydralazine HCl 100 mg Q12HR PO 02/08/25 22:00 Laboratory Results Laboratory Tests 02/08/25 06:51 Chemistry Test 02/08/25 06:51 Albumin 4.4 g/dL (3.2-4.8) Calcium Level 8.7 mg/dL (8.7-10.4) Total Protein 6.8 g/dL (5.7-8.2) LFT Test 02/08/25 06:51 Alanine Aminotransferase (ALT) 13 U/L (7-40) Alkaline Phosphatase 210 U/L (46-116) H Aspartate Amino Transferase (AST) 20 U/L (13-40) Total Bilirubin 0.7 mg/dL (0.2-1.0) Microbiology Microbiology Date/Time Source Procedure Growth Status 02/07/25 01:30 Nose MRSA Screen - Final Complete Labs and/or images reviewed: Labs reviewed by me, Image(s) reviewed by me Assessment/Plan Assessment/Plan Impression: -lumbar spinal stenosis with T12 fracture -bilateral lower extremity radiculopathy -primary hypertension -dyslipidemia -hypothyroidism Plan: Events: Pacemaker interrogated, near end of life. Not MRI compatible -spine surgery consultation : Recommendations reviewed. Plans for bone scan -Continue Solu-Medrol as ordered by spine surgery -continue gabapentin -cardiology consultation with Dr. Lawrence -pain management: Continue [place], add Flexeril for muscle spasms -PUD, DVT prophylaxis -repeat labs in a.m. Total time spent with patient discussing and formulating plan of care: 35 minutes. This medical document was created using an electronic medical record system with [employer] dictation system. Although this document has been carefully reviewed, there may still be some phonetic and typographical errors. These areas are purely typographical due to imperfections of the software programs, and do not reflect any compromise in the patient's medical care. Plan discussed with: Patient, Other (RN) My Orders Orders - NIA MARIE NP Procedure Category Date Status Time Hydralazine Hcl PHA 02/08/25 In Process Tablet (Apresoline 22:00 Date of Service: Feb 08, 2025 Billing Provider: NIA MARIE NP Common Visit Codes: [id number] INP/OBS CARE(HIGH) NIA MARIE NP Feb 08, 2025 15:09
[2025-02-08 17:00] VITALS: BP 152/70; PULSE 68; RESP 18; TEMP 98.1; O2SAT 94
[2025-02-08 21:42] VITALS: BP 178/69; PULSE 66; RESP 17; TEMP 97.8; O2SAT 96
[2025-02-09] VITALS (7 sets, daily range): BP systolic 128–173; BP diastolic 64–82; PULSE 61–83; RESP 16–20; TEMP 97.8–98.2; O2SAT 93–99
[2025-02-09] MEDS: methylPREDNISolone SOD SUCC 125 MG/2 ML VL IV SCH (00:03)
--- NOTE | 2025-02-09 13:19 | DVHPN2 ---
Progress Note - Dictate Date Seen: Feb 09, 2025 Medical Necessity Reason Pt with a Central, PICC or Fol: No Subjective PT WITH SSS S/P PPI NOW WITH 5 MONTHS HTN PMH; spinal stenosis compression fracture of T2 hypothyroid hx of laminectomy PACEMAKER IS NOT THE CURRENTLY ISSUE vital signs Vital Sign Date Time Temp Pulse Resp B/P (MAP) Pulse Ox O2 Delivery O2 Flow Rate FiO2 02/09/25 09:52 158/66 02/09/25 09:51 68 02/09/25 05:15 98.2 16 96 98.2 02/08/25 20:00 Room Air* 0 21 Total Intake and Output 02/08/25 02/08/25 02/09/25 15:00 23:00 07:00 Intake Total 560 ml 500 ml Output Total 650 ml Balance -90 ml 500 ml medications Current Medications Medications Dose Ordered Sig/Sharif Route Start Time Stop Time Status Last Admin Dose Admin Levothyroxine Sodium 100 mcg QAM PO 02/07/25 07:00 02/09/25 05:37 100 MCG Multivitamins/ Minerals 1 tab DAILY PO 02/07/25 10:00 02/08/25 10:29 1 TAB Ramipril 10 mg DAILY PO 02/07/25 10:00 02/09/25 09:52 10 MG Atorvastatin Calcium 10 mg HS PO 02/06/25 22:00 02/09/25 00:03 10 MG Patient Own Medication 1 tab DAILY PO 02/07/25 10:00 Acetaminophen/ Hydrocodone Bitart 1 tab Q4HP PRN PO 02/06/25 13:00 02/07/25 20:56 1 TAB Ondansetron HCl 4 mg Q4HP PRN IV 02/06/25 13:00 02/07/25 08:01 4 MG Docusate Sodium 100 mg BIDPRN PRN PO 02/06/25 13:00 Morphine Sulfate 2 mg Q4HPRN PRN IV 02/06/25 13:00 02/07/25 01:33 2 MG Enoxaparin Sodium 40 mg DAILY SC 02/06/25 13:00 02/09/25 09:54 40 MG Nitroglycerin 0.4 mg Q5MINP PRN SL 02/06/25 13:00 Metoprolol Tartrate 50 mg BID PO 02/06/25 22:00 02/09/25 09:51 50 MG Hydralazine HCl 10 mg Q6HP PRN IV 02/06/25 18:45 02/09/25 07:35 10 MG Cyclobenzaprine HCl 5 mg Q8HPRN PRN PO 02/07/25 12:00 Gabapentin 200 mg BID PO 02/07/25 22:00 02/09/25 09:52 200 MG Methylprednisolone Sodium Succinate 80 mg BID IV 02/08/25 22:00 02/09/25 09:53 80 MG Hydralazine HCl 100 mg Q12HR PO 02/08/25 22:00 02/09/25 09:52 100 MG laboratory and microbiology Laboratory Tests 02/08/25 06:51 Test 02/08/25 06:51 Range/Units Serum Glucose 218 H 74-106 mg/dL Problem List SSS S/P PPI NOW WITH 5 MONTHS HTN PMH; spinal stenosis compression fracture of T2 hypothyroid hx of laminectomy PACEMAKER IS NOT THE CURRENTLY ISSUE Assessment/Plan CARDIAC STATUS IS STABLE WILL BE ADDRESSED OUTPATIENT Plan discussed with: Patient ALLEN GROVER MD Feb 09, 2025 13:19
--- NOTE | 2025-02-09 14:26 | DVHPN2 ---
Subjective Patient denies any discomfort today. Reviewed: Care Plan, H&P, Labs, Medications Changes from previous H/P or p: No Changes General: Per HPI Eyes: No Pain, No Vision change, No Conjunctivae inflammation, No Eyelid inflammation, No Other, No Redness ENT: No Ear pain, No Ear discharge, No Nose pain, No Nose discharge, No Nose congestion, No Mouth pain, No Mouth swelling, No Throat pain, No Throat swelling, No Other Cardiovascular: No Chest Pain, No Palpitations, No Orthopnea, No Paroxysmal Noc. Dyspnea, No Edema, No Lt Headedness, No Other Respiratory: No Cough, No Dry, No Shortness of breath, No SOB with excertion, No Wheezing, No Hemoptysis, No Pleuritic Pain, No Sputum, No Other Gastrointestinal: No Nausea, No Vomiting, No Abdominal Pain, No Diarrhea, No Constipation, No Melena, No Hematochezia, No Other Genitourinary: No Dysuria, No Frequency, No Incontinence, No Hematuria, No Retention, No Other Musculoskeletal: No other, No neck pain, No shoulder pain, No arm pain; back pain; No hand pain, No leg pain, No foot pain Skin: No Rash, No Lesions, No Jaundice, No Bruising, No Other Objective Vitals Vital Signs Date Time Temp Pulse Resp B/P (MAP) Pulse Ox O2 Delivery O2 Flow Rate FiO2 02/09/25 09:52 158/66 02/09/25 09:51 68 02/09/25 05:15 98.2 16 96 98.2 02/08/25 20:00 Room Air* 0 21 Intake/Output Intake and Output 02/09/25 07:00 Intake Total 1060 ml Output Total 650 ml Balance 410 ml Intake Oral 1060 ml Output Urine Total 650 ml # Voids 3 # Bowel Movements 1 General Appearance: Alert, Oriented X3, Cooperative, mild distress HEENT: Atraumatic, PERRLA Lungs: Clear to auscultation, Normal air movement Cardiovascular: Normal S1, Normal S2 Abdomen: Normal bowel sounds, Soft, No tenderness, No hepatospenomegaly Back: Flank Tenderness, Midline Tenderness Musculoskeletal: Normal sensory function, Normal motor function Neuro: Normal speech, Cranial nerves 3-12 NL, Other (Abnormal gait) Skin: Dry, Intact Psych/Mental Status: Mental status NL, Mood NL Medications Current Medications Medications Dose Ordered Sig/Sharif Route Start Time Stop Time Status Last Admin Dose Admin Levothyroxine Sodium 100 mcg QAM PO 02/07/25 07:00 02/09/25 05:37 100 MCG Multivitamins/ Minerals 1 tab DAILY PO 02/07/25 10:00 02/08/25 10:29 1 TAB Ramipril 10 mg DAILY PO 02/07/25 10:00 02/09/25 09:52 10 MG Atorvastatin Calcium 10 mg HS PO 02/06/25 22:00 02/09/25 00:03 10 MG Patient Own Medication 1 tab DAILY PO 02/07/25 10:00 Acetaminophen/ Hydrocodone Bitart 1 tab Q4HP PRN PO 02/06/25 13:00 02/07/25 20:56 1 TAB Ondansetron HCl 4 mg Q4HP PRN IV 02/06/25 13:00 02/07/25 08:01 4 MG Docusate Sodium 100 mg BIDPRN PRN PO 02/06/25 13:00 Morphine Sulfate 2 mg Q4HPRN PRN IV 02/06/25 13:00 02/07/25 01:33 2 MG Enoxaparin Sodium 40 mg DAILY SC 02/06/25 13:00 02/09/25 09:54 40 MG Nitroglycerin 0.4 mg Q5MINP PRN SL 02/06/25 13:00 Metoprolol Tartrate 50 mg BID PO 02/06/25 22:00 02/09/25 09:51 50 MG Hydralazine HCl 10 mg Q6HP PRN IV 02/06/25 18:45 02/09/25 07:35 10 MG Cyclobenzaprine HCl 5 mg Q8HPRN PRN PO 02/07/25 12:00 Gabapentin 200 mg BID PO 02/07/25 22:00 02/09/25 09:52 200 MG Methylprednisolone Sodium Succinate 80 mg BID IV 02/08/25 22:00 02/09/25 09:53 80 MG Hydralazine HCl 100 mg Q12HR PO 02/08/25 22:00 02/09/25 09:52 100 MG Laboratory Results Laboratory Tests 02/08/25 06:51 Microbiology Microbiology Date/Time Source Procedure Growth Status 02/07/25 01:30 Nose MRSA Screen - Final Complete Labs and/or images reviewed: Labs reviewed by me, Image(s) reviewed by me Assessment/Plan Assessment/Plan Impression: -lumbar spinal stenosis with T12 fracture -bilateral lower extremity radiculopathy -primary hypertension -dyslipidemia -hypothyroidism Plan: Events: No events overnight. -spine surgery consultation : Recommendations reviewed. Plans for bone scan -Continue Solu-Medrol as ordered by spine surgery -continue gabapentin -pain management: Continue [place], add Flexeril for muscle spasms -PUD, DVT prophylaxis -repeat labs in a.m. Total time spent with patient discussing and formulating plan of care: 35 minutes. This medical document was created using an electronic medical record system with [employer] dictation system. Although this document has been carefully reviewed, there may still be some phonetic and typographical errors. These areas are purely typographical due to imperfections of the software programs, and do not reflect any compromise in the patient's medical care. Plan discussed with: Patient, Other (RN) My Orders Orders - NIA MARIE NP Procedure Category Date Status Time Hydralazine Hcl PHA 02/08/25 In Process Tablet (Apresoline 22:00 * Cardiology Consult CONS 02/08/25 Transmitted 15:09 Date of Service: Feb 09, 2025 Billing Provider: NIA MARIE NP Common Visit Codes: [id number] INP/OBS CARE(HIGH) NIA MARIE NP Feb 09, 2025 14:26
[2025-02-10] VITALS (7 sets, daily range): BP systolic 130–172; BP diastolic 62–86; PULSE 60–71; RESP 16–20; TEMP 97.7–98.4; O2SAT 96–97
--- NOTE | 2025-02-10 09:37 | DVHPN2 ---
Progress Note - Dictate Date Seen: Feb 10, 2025 Medical Necessity Reason Pt with a Central, PICC or Fol: No Subjective PT WITH SSS S/P PPI NOW WITH 5 MONTHS HTN PMH; spinal stenosis compression fracture of T2 hypothyroid hx of laminectomy PACEMAKER IS NOT THE CURRENTLY ISSUE vital signs Vital Sign Date Time Temp Pulse Resp B/P (MAP) Pulse Ox O2 Delivery O2 Flow Rate FiO2 02/10/25 08:48 98.4 61 18 172/81 (111) 96 98.4 02/10/25 08:00 Room Air* 0 21 Total Intake and Output 02/09/25 02/09/25 02/10/25 15:00 23:00 07:00 Intake Total 670 ml 800 ml Balance 670 ml 800 ml medications Current Medications Medications Dose Ordered Sig/Sharif Route Start Time Stop Time Status Last Admin Dose Admin Levothyroxine Sodium 100 mcg QAM PO 02/07/25 07:00 02/10/25 06:16 100 MCG Multivitamins/ Minerals 1 tab DAILY PO 02/07/25 10:00 02/08/25 10:29 1 TAB Ramipril 10 mg DAILY PO 02/07/25 10:00 02/09/25 09:52 10 MG Atorvastatin Calcium 10 mg HS PO 02/06/25 22:00 02/09/25 22:00 10 MG Patient Own Medication 1 tab DAILY PO 02/07/25 10:00 Acetaminophen/ Hydrocodone Bitart 1 tab Q4HP PRN PO 02/06/25 13:00 02/07/25 20:56 1 TAB Ondansetron HCl 4 mg Q4HP PRN IV 02/06/25 13:00 02/07/25 08:01 4 MG Docusate Sodium 100 mg BIDPRN PRN PO 02/06/25 13:00 Morphine Sulfate 2 mg Q4HPRN PRN IV 02/06/25 13:00 02/07/25 01:33 2 MG Enoxaparin Sodium 40 mg DAILY SC 02/06/25 13:00 02/09/25 09:54 40 MG Nitroglycerin 0.4 mg Q5MINP PRN SL 02/06/25 13:00 Metoprolol Tartrate 50 mg BID PO 02/06/25 22:00 02/09/25 22:00 50 MG Hydralazine HCl 10 mg Q6HP PRN IV 02/06/25 18:45 02/10/25 07:35 10 MG Cyclobenzaprine HCl 5 mg Q8HPRN PRN PO 02/07/25 12:00 Gabapentin 200 mg BID PO 02/07/25 22:00 02/09/25 21:59 200 MG Methylprednisolone Sodium Succinate 80 mg BID IV 02/08/25 22:00 02/09/25 21:58 80 MG Hydralazine HCl 100 mg Q12HR PO 02/08/25 22:00 02/09/25 21:59 100 MG laboratory and microbiology Laboratory Tests 02/08/25 06:51 Test 02/08/25 06:51 Range/Units Serum Glucose 218 H 74-106 mg/dL Problem List SSS S/P PPI NOW WITH 5 MONTHS HTN PMH; spinal stenosis compression fracture of T2 hypothyroid hx of laminectomy PACEMAKER IS NOT CURRENTLY AN ISSUE Assessment/Plan CARDIAC STATUS IS STABLE WILL BE ADDRESSED OUTPATIENT Plan discussed with: Patient ALLEN GROVER MD Feb 10, 2025 09:37
[2025-02-10] MEDS: LIDOCAINE 5% TOPICAL PATCH TOP SCH (10:00)
--- NOTE | 2025-02-10 14:01 | DVHPN2 ---
Subjective Patient denies any discomfort today. Reviewed: Care Plan, H&P, Labs, Medications Changes from previous H/P or p: No Changes General: Per HPI Eyes: No Pain, No Vision change, No Conjunctivae inflammation, No Eyelid inflammation, No Other, No Redness ENT: No Ear pain, No Ear discharge, No Nose pain, No Nose discharge, No Nose congestion, No Mouth pain, No Mouth swelling, No Throat pain, No Throat swelling, No Other Cardiovascular: No Chest Pain, No Palpitations, No Orthopnea, No Paroxysmal Noc. Dyspnea, No Edema, No Lt Headedness, No Other Respiratory: No Cough, No Dry, No Shortness of breath, No SOB with excertion, No Wheezing, No Hemoptysis, No Pleuritic Pain, No Sputum, No Other Gastrointestinal: No Nausea, No Vomiting, No Abdominal Pain, No Diarrhea, No Constipation, No Melena, No Hematochezia, No Other Genitourinary: No Dysuria, No Frequency, No Incontinence, No Hematuria, No Retention, No Other Musculoskeletal: No other, No neck pain, No shoulder pain, No arm pain; back pain; No hand pain, No leg pain, No foot pain Skin: No Rash, No Lesions, No Jaundice, No Bruising, No Other Objective Vitals Vital Signs Date Time Temp Pulse Resp B/P (MAP) Pulse Ox O2 Delivery O2 Flow Rate FiO2 02/10/25 10:07 173/81 02/10/25 10:07 61 02/10/25 08:48 98.4 18 96 98.4 02/10/25 08:00 Room Air* 0 21 Intake/Output Intake and Output 02/10/25 07:00 Intake Total 1470 ml Balance 1470 ml Intake Oral 1470 ml # Voids 6 # Bowel Movements 1 General Appearance: Alert, Oriented X3, Cooperative, mild distress HEENT: Atraumatic, PERRLA Lungs: Clear to auscultation, Normal air movement Cardiovascular: Normal S1, Normal S2 Abdomen: Normal bowel sounds, Soft, No tenderness, No hepatospenomegaly Back: Flank Tenderness, Midline Tenderness Musculoskeletal: Normal sensory function, Normal motor function Neuro: Normal speech, Cranial nerves 3-12 NL, Other (Abnormal gait) Skin: Dry, Intact Psych/Mental Status: Mental status NL, Mood NL Medications Current Medications Medications Dose Ordered Sig/Sharif Route Start Time Stop Time Status Last Admin Dose Admin Levothyroxine Sodium 100 mcg QAM PO 02/07/25 07:00 02/10/25 06:16 100 MCG Multivitamins/ Minerals 1 tab DAILY PO 02/07/25 10:00 02/10/25 10:07 1 TAB Ramipril 10 mg DAILY PO 02/07/25 10:00 02/10/25 10:07 10 MG Atorvastatin Calcium 10 mg HS PO 02/06/25 22:00 02/09/25 22:00 10 MG Patient Own Medication 1 tab DAILY PO 02/07/25 10:00 Acetaminophen/ Hydrocodone Bitart 1 tab Q4HP PRN PO 02/06/25 13:00 02/07/25 20:56 1 TAB Ondansetron HCl 4 mg Q4HP PRN IV 02/06/25 13:00 02/07/25 08:01 4 MG Docusate Sodium 100 mg BIDPRN PRN PO 02/06/25 13:00 Morphine Sulfate 2 mg Q4HPRN PRN IV 02/06/25 13:00 02/07/25 01:33 2 MG Enoxaparin Sodium 40 mg DAILY SC 02/06/25 13:00 02/10/25 10:08 40 MG Nitroglycerin 0.4 mg Q5MINP PRN SL 02/06/25 13:00 Metoprolol Tartrate 50 mg BID PO 02/06/25 22:00 02/10/25 10:07 50 MG Hydralazine HCl 10 mg Q6HP PRN IV 02/06/25 18:45 02/10/25 07:35 10 MG Cyclobenzaprine HCl 5 mg Q8HPRN PRN PO 02/07/25 12:00 Gabapentin 200 mg BID PO 02/07/25 22:00 02/10/25 10:06 200 MG Methylprednisolone Sodium Succinate 80 mg BID IV 02/08/25 22:00 02/10/25 10:08 80 MG Hydralazine HCl 100 mg Q12HR PO 02/08/25 22:00 02/10/25 10:07 100 MG Lidocaine 1 patch DAILY TOP 02/10/25 10:00 Laboratory Results Laboratory Tests 02/08/25 06:51 Microbiology Microbiology Date/Time Source Procedure Growth Status 02/07/25 01:30 Nose MRSA Screen - Final Complete Labs and/or images reviewed: Labs reviewed by me, Image(s) reviewed by me Assessment/Plan Assessment/Plan Impression: -lumbar spinal stenosis with T12 fracture -bilateral lower extremity radiculopathy -primary hypertension -dyslipidemia -hypothyroidism Plan: Events: No events overnight. Bone scan completed. -spine surgery consultation : Recommendations reviewed. -Continue Solu-Medrol as ordered by spine surgery -physical therapy: Noted to ambulate 40 ft. -continue gabapentin -pain management: Continue [place], add Flexeril for muscle spasms -PUD, DVT prophylaxis -repeat labs in a.m. Total time spent with patient discussing and formulating plan of care: 35 minutes. This medical document was created using an electronic medical record system with [employer] dictation system. Although this document has been carefully reviewed, there may still be some phonetic and typographical errors. These areas are purely typographical due to imperfections of the software programs, and do not reflect any compromise in the patient's medical care. Plan discussed with: Patient, Other (RN) My Orders Orders - NIA MARIE NP Procedure Category Date Status Time Dme: Walker DME 02/09/25 Transmitted 14:25 Date of Service: Feb 10, 2025 Billing Provider: NIA MARIE NP Common Visit Codes: [id number] INP/OBS CARE(HIGH) NIA MARIE NP Feb 10, 2025 14:00
[2025-02-11 01:01] VITALS: BP 139/66; PULSE 60; RESP 20; TEMP 97.9; O2SAT 97
[2025-02-11 05:00] VITALS: BP 122/74; PULSE 60; RESP 19; TEMP 98.1; O2SAT 96
--- NOTE | 2025-02-11 05:19 | DVH ---
Procedure: NM NM BONE 3 PHASE Exam Date: 02/10/2025 12:57 PM Clinical History: evaluate for Thoracic 12 compression fracture Comparison Study: CT dated 01/07/2025 Nuclear Medicine Three-Phase Bone Scan Technique: Following the intravenous administration of 23.5 millicuries of technetium 99m MDP dynamic blood flow images and static and blood pool images were obtained. Delayed planar images were obtained at 3 amanda rs. Findings: Increased activity is present in the region of the lower thoracic spine on delayed images. Impression: Increased activity is present in the lower thoracic spine on delayed images. Findings may represent fracture. Clinical correlation advised. Recommend correlation with MRI.
[2025-02-11 09:00] VITALS: BP_SYST 120; BP_SYST 141; BP_DIAS 61; BP_DIAS 67; PULSE 73; PULSE 87; RESP 18; TEMP 97.9; TEMP 98.4; O2SAT 100; O2SAT 97
[2025-02-11] MEDS: DOCUSATE SOD 100 MG CAP PO SCH (10:56)
[2025-02-11] MEDS: POLYETHYLENE GLYCOL 17 GM PWDR PO PRN (10:59)
[2025-02-11 13:00] VITALS: BP_SYST 104; BP_SYST 157; BP_DIAS 68; BP_DIAS 70; PULSE 63; PULSE 89; RESP 18; RESP 20; TEMP 97.6; O2SAT 96; O2SAT 99
--- NOTE | 2025-02-11 15:55 | DVHDS2 ---
Discharge Summary Date of Admission Feb 06, 2025 at 12:58 Date of Discharge: Feb 11, 2025 Labs/Diagnostic Data: Laboratory Results Test 02/08/25 06:51 White Blood Count 5.8 10^3/uL (4.4-10.8) Red Blood Count 4.21 10^6/uL (4.0-5.20) Hemoglobin 14.2 g/dL (12.2-16.2) Hematocrit 41.5 % (36.0-46.0) Mean Corpuscular Volume 98.6 fL (80.0-100.0) Mean Corpuscular Hemoglobin 33.7 pg (28.0-32.0) Mean Corpuscular Hemoglobin Concent 34.2 g/dL (32.0-36.0) Red Cell Distribution Width 15.6 % (11.8-14.3) Platelet Count 193 10^3/uL (140-450) Mean Platelet Volume 6.1 fL (6.9-10.8) Neutrophils (%) (Auto) 91.4 % (37.0-80.0) Lymphocytes (%) (Auto) 7.3 % (10.0-50.0) Monocytes (%) (Auto) 1.2 % (0.0-12.0) Eosinophils (%) (Auto) 0.0 % (0.0-7.0) Basophils (%) (Auto) 0.1 % (0.0-2.0) Neutrophils # (Auto) 5.3 10 ^3/uL (1.6-8.6) Lymphocytes # (Auto) 0.4 10 ^3/uL (0.4-5.4) Monocytes # (Auto) 0.1 10 ^3/uL (0-1.3) Eosinophils # (Auto) 0 10 ^3/uL (0-0.8) Basophils # (Auto) 0 10 ^3/uL (0-0.2) Nucleated Red Blood Cells 0.1 % Sodium Level 133 mmol/L (136-145) Potassium Level 3.8 mmol/L (3.5-5.1) Chloride Level 102 mmol/L (98-107) Carbon Dioxide Level 19 mmol/L (20-31) Anion Gap 12 (5-15) Blood Urea Nitrogen 9 mg/dL (9-23) Creatinine 0.98 mg/dL (0.550-1.02) Glomerular Filtration Rate Calc 57 mL/min (>90) BUN/Creatinine Ratio 9.2 (10.0-20.0) Serum Glucose 218 mg/dL (74-106) Calcium Level 8.7 mg/dL (8.7-10.4) Total Bilirubin 0.7 mg/dL (0.2-1.0) Aspartate Amino Transferase (AST) 20 U/L (13-40) Alanine Aminotransferase (ALT) 13 U/L (7-40) Alkaline Phosphatase 210 U/L (46-116) Total Protein 6.8 g/dL (5.7-8.2) Albumin 4.4 g/dL (3.2-4.8) Other Laboratory Tests 02/08/25 06:51 Brief Hx & Hospital Course: History of Present Illness 84-year-old female with a past medical history of hypertension, hyperlipidemia, hypothyroidism, and prior lumbar laminectomy presents with worsening low back pain. She reports that she sustained a fall and was seen on January 26, 2025, here , where she was diagnosed with left sacroiliac (SI) joint strain, possible spinal soft tissue injury, and a possible old nondisplaced left pubic rami fracture. She was discharged home but states she prescribed pain medications tramadol at that time. Since discharge, she has continued to experience severe pain in her left hip radiating down her left leg, especially when ambulating. She denies bowel or bladder incontinence, numbness, or tingling. In the ED today, CT lumbar spine revealed a T2 compression fracture with approximately 20% loss of vertebral height and degenerative joint disease with severe spinal canal stenosis between L3L4. King was provided with symptom improvement. She will be admitted for acute intractable low back pain, orthopedic spine evaluation, and physical therapy evaluation. Course of hospitalization: Assess patient's pacemaker for MRI compatibility which is not. Consultation was placed with spinal surgery, with patient undergoing three-phase bone scan of lumbar area. Findings were discussed with the patient. Patient was started on IV steroids with Decadron, switching to Solu-Medrol which did assist with patient's lower extremity radiculopathy. Patient was also provided pain medication and muscle relaxers. Patient will be provided TLSO back brace and we will be discharged to nursing facility for proximally two weeks physical therapy. Patient is agreeable with discharge plan. All questions answered Physical examination General: Alert and Oriented x3. No acute distress. Well-nourished. Eyes: EOMI. Anicteric. HENT: Moist mucous membranes. Lungs: Clear to auscultation bilaterally. No accessory muscle use. Cardiovascular: Regular rate and rhythm. No murmur. No JVD. Abdomen: Soft, non-tender and non-distended. No palpable masses. Extremities: No edema. Non-tender. Skin: No rashes or lesions. Warm. Neurologic: No focal neurological deficits. CN II-XII grossly intact, but not individually tested. Psychiatric: Cooperative. Appropriate mood and affect. Total time spent with patient discussing and formulating plan of care: 35 minutes. This medical document was created using an electronic medical record system with [employer] dictation system. Although this document has been carefully reviewed, there may still be some phonetic and typographical errors. These areas are purely typographical due to imperfections of the software programs, and do not reflect any compromise in the patient's medical care. Consults/Reason for consult Spine surgery: Compression fracture lumbar spine. Lower extremity radiculopathy Condition at Discharge: Guarded Final Diagnosis/Problems List T12 deformity with lower extremity radiculopathy Secondary diagnosis: -lumbar spinal stenosis with T12 fracture -bilateral lower extremity radiculopathy -primary hypertension -dyslipidemia -hypothyroidism Discharge Disposition: Retirement Facility Discharge Instruct/Medications Diet: Cardiac 2g Na,low cholest Activity: No Restrictions, As Tolerated Follow Up/Referral: Follow up with PCP in 1-2 weeks Follow up with Orthopedic surgery in 3-4 weeks Medications: Per medication reconciliation Scheduled Atorvastatin Calcium (Lipitor), 1 TAB PO DAILY, (Reported) Calcium & Phosphorus W/ Vitami (Calcium), 1 TAB PO DAILY, (Reported) Cephalexin (Keflex Capsule), 1 CAP PO QID Gabapentin (Gabapentin), 400 MG PO BID, (Reported) Hydralazine Hcl (Hydralazine Hcl), 50 MG PO BID, (Reported) Metoprolol Succinate (Metoprolol Succinate Er), 50 MG PO DAILY, (Reported) Multiple Vitamins W/ Minerals (Preservision Areds), 1 DROP EACHEYE DAILY, (Reported) Potassium Chloride (Potassium Chloride ER), 10 MEQ PO DAILY, (Reported) Ramipril (Ramipril), 1 CAP PO DAILY, (Reported) Scheduled PRN Tramadol HCl (Tramadol HCl), 50 MG PO Q8HR PRN Miscellaneous Medications Levothyroxine Sodium (Levothyroxine Sodium), 100 MCG PO, (Reported) 36 Discharge Statement: "Patient was advised to return to the ER or call 911 if any headaches, dizziness, shortness of breath, chest pain, abdominal pain, bleeding, fevers, or worsening of medical condition. Patient was counseled about treatment plan, medications, possible side effects, patientverbalized understanding. All questions were answered to the best of my ability. This discharge took greater then 30 minutes in planning, reviewing documentation, counseling the patient, and discussing with other team members." DME: Diagnosis: Lumbar spinal stenosis with radiculopathy ASSESSMENT ASSESSMENT Assessment T12 deformity with lower extremity radiculopathy Date of Service: Feb 11, 2025 Billing Provider: NIA MARIE NP Common Visit Codes: [id number] DISCH DAY >30min NIA MARIE NP Feb 11, 2025 15:55
[2025-02-11 16:40] VITALS: BP 169/57; PULSE 63; RESP 20; TEMP 97.8; O2SAT 95
== END 2025-02-11 19:50 | DRG 552 ==
LOC: ER 10:18 → OVERFLOW 12:58 → EAST 15:49
PROVIDERS: ADMIT Nurse Practitioner Acute Care; ATTEND Nurse Practitioner Acute Care
DX: M48.062 Spinal stenosis, lumbar region with neurogenic claudication (principal); S22.088A Other fracture of T11-T12 vertebra, initial encounter for closed fracture; R29.890 Loss of height; I10 Essential (primary) hypertension; E78.5 Hyperlipidemia, unspecified; M51.16 Intervertebral disc disorders with radiculopathy, lumbar region; E03.9 Hypothyroidism, unspecified; Z79.2 Long term (current) use of antibiotics; Z79.899 Other long term (current) drug therapy; W18.2XXA Fall in (into) shower or empty bathtub, initial encounter; Y93.E1 Activity, personal bathing and showering; Y92.89 Other specified places as the place of occurrence of the external cause; Y99.8 Other external cause status
CPT/HCPCS: 36415; 78315; 80048; 80053; 85025; 87081; 97110; 97116; 97163; 97530; G0378; J1100; J2405

== ENCOUNTER 2025-02-12 01:42 | Inpatient (IN) | payer MEDICARE, OTHER ==
[~2025-02-12] VITALS: Ht 167.6 cm; Wt 81.1 kg
[~2025-02-12 01:42] MED LIST changes: +HYDR50TA47 PO
[2025-02-12 04:52] LABS: Albumin 4.3 g/dL (3.2-4.8); Anion Gap 14 (5-15); BUN/Creatinine Ratio 19.1 (10.0-20.0); Blood Urea Nitrogen 21 mg/dL (9-23); Carbon Dioxide 20 mmol/L (20-31); Potassium 3.9 mmol/L (3.5-5.1); Total Protein 6.8 g/dL (5.7-8.2)
--- NOTE | 2025-02-12 04:53 | ED.PDOC ---
Back pain HPI HPI Comments Discharge diagnosis from 02/11/25 T12 deformity with lower extremity radiculopathy Secondary diagnosis: -lumbar spinal stenosis with T12 fracture -bilateral lower extremity radiculopathy -primary hypertension -dyslipidemia -hypothyroidism HPI: 84 year old female presents to the emergency department via EMS with a chief complaint of back pain onset 1 week. Per EMS, patient was seen in this ED on 01/07/25 due to fall was discharged, seen in this ED on 02/06/25 due to persisting back pain, admitted and was discharged from [facility] on 02/11/25, was sent to [facility]. She noticed back pain has worsen, states she was not given any pain medication. Denies nausea, vomiting, diarrhea, headache, dizziness, fever, chills, chest pain, shortness of breath. No other symptoms or modifying factors present at this time. Initial Vitals BP: 172/90 HR: 114 RR: 14 O2: 99% Temp: 98.7 F Past Medical History: thyroid disease, HLD, HTN Past Surgical History: pacemaker Social History: Denies ETOH, smoking, and drug use. Medications: Metoprolol, Gabapentin, Atorvastatin Allergies: NKDA HPI: Poor Historian. REVIEW OF SYSTEMS: CONSTITUTIONAL: Denies acute: fever, diaphoresis, chills, generalized weakness. HEAD: Denies acute: headache, photophobia Eyes: Denies acute: Double vision, vision loss, eye pain, eye discharge. EARS: Denies acute: tinnitus, hearing loss, ear discharge, ear pain, THROAT: Denies acute: sore throat, swelling, difficulty swallowing , pain with swallowing, change in voice. NECK: Denies acute: neck pain, neck swelling, stiff neck. HEART: Denies acute : chest pain, palpitations, LUNGS: Denies acute: SOB, wheezing, cough, hemoptysis ABDOMEN: Denies acute: abdominal pain, Nausea, Vomiting, diarrhea, melena , hematemesis, hematochezia SKIN: Denies acute: rash, redness, lesions, itchiness. EXTREMITIES: Denies acute: calf pain, numbness, tingling, weakness, denies pain in extremity. Neuro: Denies acute: focal neurological deficit, motor or sensory focal neurological deficit, tremors, seizure like activity, confusion, dizziness, change in mental status, loss of bowel or bladder function, cauda equina like symptoms. : Denies acute: dysuria, hematuria, flank pain, increase in urinary frequency. PSYCH: Denies acute: hallucination, suicidal ideation, homicidal ideation. FEMALE: Denies acute: abnormal vaginal bleeding, foul odor, unusual discharge. PHYSICAL EXAM: General: -----moderate---acute distress, awake and alert. Head: normocephalic, atraumatic. Neck: supple, trachea is midline, no swelling. Throat: Normal phonation. Eyes:, no erythema, no purulent discharge, no proptosis, no icterus. Heart: regular rate, regular rhythm, no significant murmur appreciated. Lungs: no apparent respiratory distress, Able to speak in full sentences. No wheezing, no rhonchi, no crackles. No stridors Clear to auscultation bilaterally. Abdomen: non tender to palpation, non distended, soft, no guarding, no rebound, + bowel sounds. Neuro: Awake, Alert, oriented to name, self, situation, follows commands GCS=15. Speech is normal. Skin: no petechia, no purpura, no cyanosis, non-pale, not jaundice. Lower extremities: --no - Pitting edema no deformity, no focal swelling, no calf TTP. Makes eye contact. Patient points specifically to her left mid back area where she is hurting consistent with a history of T12 compression fracture. Patient states that she is awaiting a brace which was not given to her in the most recent discharged from the hospital. Face: no apparent facial droop. ED COURSE: DISCLAIMER: This medical document was created using an electronic medical record system with voice recognition software and computerized dictation system. Although this document has been carefully reviewed, there might still be some phonetic and typographical errors. Occasional wrong-word or "sound-alike" substitutions may have occurred due to the inherent limitations of voice recognition software. These areas are purely typographical due to imperfections of the software programs and do not reflect any compromise in the patient's medical care. Please read the chart carefully and recognize, using context, where these substitutions have occurred. Chief Complaint: Back Pain Time Seen by MD: 04:40 Reviewed Notes: Medications, Allergies Allergies: Coded Allergies: NO KNOWN ALLERGIES (Unverified , 01/08/25) Home Meds Active Scripts Tramadol HCl (Tramadol HCl) 50 Mg Tab, 50 MG PO Q8HR PRN for 5 Days, #15 TAB Prov:NIA MARIE PROVIDER EDUCATION SPECIALIST 01/08/25 Cephalexin (KEFLEX CAPSULE) 250 Mg Cp, 1 CAP PO QID, #20 CAP Prov:AN SOLIS MD 10/28/20 Reported Medications Hydralazine Hcl (Hydralazine Hcl) 50 Mg Tab, 50 MG PO BID for 30 Days, MG 02/06/25 Levothyroxine Sodium (Levothyroxine Sodium) 112 Mcg Tab, 100 MCG PO, TAB 10/23/20 Atorvastatin Calcium (Lipitor) 10 Mg Tab, 1 TAB PO DAILY, #90 TAB 0 Refills 10/23/20 Metoprolol Succinate (Metoprolol Succinate Er) 50 Mg Tab, 50 MG PO DAILY, TAB 10/23/20 Calcium & Phosphorus W/ Vitami (CALCIUM) Tab, 1 TAB PO DAILY, TAB 10/23/20 Multiple Vitamins W/ Minerals (PRESERVISION AREDS) Areds Tab, 1 DROP EACHEYE DAILY, DROP 10/23/20 Gabapentin (Gabapentin) 300 Mg Cap, 400 MG PO BID, CAP 10/23/20 Ramipril (Ramipril) 10 Mg Cap, 1 CAP PO DAILY, #30 CAP 0 Refills 10/23/20 Potassium Chloride (Potassium Chloride ER) 10 Meq Tab, 10 MEQ PO DAILY, TAB 10/23/20 Information Source: Patient, Emergency Med Personnel Mode of Arrival: EMS Timing: Hours Duration: Since onset Severity: Moderate Prehospital treatment: None Quality: Sharp Onset: Fall Modifying Factors: Nothing Past Medical History PAST MEDICAL HISTORY: High Lipids, HTN, Thyroid Surgical History: Pacemaker GARMENT ALTERATION EXAMINER History: No Pertinent GARMENT ALTERATION EXAMINER History Family History Family History: Reviewed,noncontributory to illness Social History Smoker: Non-Smoker Alcohol: Denies ETOH Use Drugs: Denies Drug Use Lives In: Half-Way Was a procedure done? Was a procedure done?: No X-Ray, Labs, Meds, VS Vital Signs Date Time Temp Pulse Resp B/P (MAP) Pulse Ox O2 Delivery O2 Flow Rate FiO2 02/12/25 06:06 96 Room Air* 0 21 02/12/25 06:00 98.3 69 16 196/74 (114) 96 98.3 02/12/25 05:19 206/79 02/12/25 05:19 94 18 206/79 (121) 94 02/12/25 04:00 62 02/12/25 01:50 98.7 114 14 172/90 99 98.7 Lab Test 02/12/25 04:20 Range/Units White Blood Count 17.7 #H 4.4-10.8 10^3/uL Red Blood Count 4.45 4.0-5.20 10^6/uL Hemoglobin 14.7 12.2-16.2 g/dL Hematocrit 42.9 36.0-46.0 % Mean Corpuscular Volume 96.4 80.0-100.0 fL Mean Corpuscular Hemoglobin 33.1 H 28.0-32.0 pg Mean Corpuscular Hemoglobin Concent 34.3 32.0-36.0 g/dL Red Cell Distribution Width 15.9 H 11.8-14.3 % Platelet Count 238 140-450 10^3/uL Mean Platelet Volume 6.9 6.9-10.8 fL Neutrophils (%) (Auto) 87.3 H 37.0-80.0 % Lymphocytes (%) (Auto) 4.1 L 10.0-50.0 % Monocytes (%) (Auto) 8.6 0.0-12.0 % Eosinophils (%) (Auto) 0.0 0.0-7.0 % Basophils (%) (Auto) 0.0 0.0-2.0 % Neutrophils # (Auto) 15.5 H 1.6-8.6 10 ^3/uL Lymphocytes # (Auto) 0.7 0.4-5.4 10 ^3/uL Monocytes # (Auto) 1.5 H 0-1.3 10 ^3/uL Eosinophils # (Auto) 0 0-0.8 10 ^3/uL Basophils # (Auto) 0 0-0.2 10 ^3/uL Nucleated Red Blood Cells 0.1 % Sodium Level 125 #L 136-145 mmol/L Potassium Level 3.9 3.5-5.1 mmol/L Chloride Level 91 #L 98-107 mmol/L Carbon Dioxide Level 20 20-31 mmol/L Anion Gap 14 5-15 Blood Urea Nitrogen 21 9-23 mg/dL Creatinine 1.10 H 0.550-1.02 mg/dL Glomerular Filtration Rate Calc 49 >90 mL/min BUN/Creatinine Ratio 19.1 10.0-20.0 Serum Glucose 261 H 74-106 mg/dL Calcium Level 8.1 L 8.7-10.4 mg/dL Total Bilirubin 1.2 H 0.2-1.0 mg/dL Aspartate Amino Transferase (AST) 44 H 13-40 U/L Alanine Aminotransferase (ALT) 63 H 7-40 U/L Alkaline Phosphatase 193 H 46-116 U/L Troponin I High Sensitivity 10 </=34 ng/L Total Protein 6.8 5.7-8.2 g/dL Albumin 4.3 3.2-4.8 g/dL Current Medications Medications (Trade) Dose Ordered Sig/Sharif Route Start Time Stop Time Status Last Admin Fentanyl Citrate 100 mcg ONCE ONCE IV 02/12/25 04:45 02/12/25 04:46 DC 02/12/25 05:19 Sodium Chloride 1,000 ml @ 1,000 mls/hr Q1H ONCE IV 02/12/25 04:45 02/12/25 05:44 DC 02/12/25 05:19 Time of 1ST Reevaluation: 05:10 Reevaluation 1ST: Unchanged Time of 2ND Reevaluation: 05:08 (I will admit the patient for pain control.) Patient Education/Counseling: Diagnosis, Treatment Family Education/Counseling: No Family Present Departure 1 Departure Time of Disposition: 05:08 Impression: Primary Impression: Low back pain Additional Impressions: Leukocytosis Hyponatremia Disposition: ADMITTED INPATIENT Admit to: [facility] Condition: Guarded Discharged With: Self Critical Care Note Critical Care Time?: No I personally scribed for NAEEM DESOUZA DO ([email or web address]) on 02/12/25 at 04:53. Electronically submitted by Ruba Trejo ([email or web address]). NAEEM DESOUZA DO Feb 12, 2025 04:53
[2025-02-12 04:58] LABS: Alanine Aminotransferase 63 U/L (7-40); Alkaline Phosphatase 193 U/L (46-116); Bilirubin, Total 1.2 mg/dL (0.2-1.0); Calcium 8.1 mg/dL (8.7-10.4); Chloride 91 mmol/L (98-107); Glucose 261 mg/dL (74-106); Sodium 125 mmol/L (136-145)
[2025-02-12 05:02] LABS: Hematocrit 42.9 % (36.0-46.0); Hemoglobin 14.7 g/dL (12.2-16.2); Mean Corpuscular Hemoglobin 33.1 pg (28.0-32.0); Mean Corpuscular Volume 96.4 fL (80.0-100.0); Nucleated Red Blood Cells % 0.1 %
[2025-02-12] MEDS: fentaNYL CITRATE 100 MCG/2 ML VL IV ONE (05:19)
[2025-02-12] MEDS: SODIUM CHLORIDE 0.9% 1,000 ML IV ONE ×2 (05:19→09:30)
[2025-02-12 06:06] VITALS: O2SAT 96
[2025-02-12] MEDS ORDERED: cefTRIAXone 1GM/50ML D5W 50 ML IV ONE (06:15)
[2025-02-12] MEDS: LACTATED RINGER'S 1,800 ML IV ONE (07:06)
--- NOTE | 2025-02-12 07:13 | DVH ---
CHEST RADIOGRAPH Indication: Leukocytosis Technique: Single frontal view of the chest was obtained COMPARISON: XY CHEST PORTABLE on DOS: 01/07/25 FINDINGS: Lines and Tubes: None. Right anterior chest wall cardiac pacing device. Lungs: Clear Pleura: No effusion. No pneumothorax. Cardiomediastinal contours: Cardiomegaly. Atherosclerotic vascular calcifications. Bones: Unremarkable IMPRESSION: 1. Stable cardiomegaly.
--- NOTE | 2025-02-12 07:26 | DVHHP2 ---
Admitting Diagnosis: Back pain History of Present Illness 84 year old female presents to the emergency department via EMS with a chief complaint of back pain onset 1 week. Per EMS, patient was seen in this ED on 01/07/25 due to fall was discharged, seen in this ED on 02/06/25 due to persisting back pain, admitted and was discharged from [facility] on 02/11/25, was sent to [facility]. She noticed back pain has worsen, states she was not given any pain medication. Denies nausea, vomiting, diarrhea, headache, dizziness, fever, chills, chest pain, shortness of breath. No other symptoms or modifying factors present at this time. Initial Vitals BP: 172/90 HR: 114 RR: 14 O2: 99% Temp: 98.7 F Past Medical History: thyroid disease, HLD, HTN Past Surgical History: pacemaker Social History: Denies ETOH, smoking, and drug use. Medications: Metoprolol, Gabapentin, Atorvastatin Allergies: NKDA REVIEW OF SYSTEMS: CONSTITUTIONAL: Denies acute: fever, diaphoresis, chills, generalized weakness. HEAD: Denies acute: headache, photophobia Eyes: Denies acute: Double vision, vision loss, eye pain, eye discharge. EARS: Denies acute: tinnitus, hearing loss, ear discharge, ear pain, THROAT: Denies acute: sore throat, swelling, difficulty swallowing , pain with swallowing, change in voice. NECK: Denies acute: neck pain, neck swelling, stiff neck. HEART: Denies acute : chest pain, palpitations, LUNGS: Denies acute: SOB, wheezing, cough, hemoptysis ABDOMEN: Denies acute: abdominal pain, Nausea, Vomiting, diarrhea, melena , hematemesis, hematochezia SKIN: Denies acute: rash, redness, lesions, itchiness. EXTREMITIES: Denies acute: calf pain, numbness, tingling, weakness, denies pain in extremity. Neuro: Denies acute: focal neurological deficit, motor or sensory focal neurological deficit, tremors, seizure like activity, confusion, dizziness, change in mental status, loss of bowel or bladder function, cauda equina like symptoms. : Denies acute: dysuria, hematuria, flank pain, increase in urinary frequency. PSYCH: Denies acute: hallucination, suicidal ideation, homicidal ideation. PAST MEDICAL HISTORY: High Lipids, HTN, Thyroid Surgical History: Pacemaker WEB WEAVER History: No Pertinent WEB WEAVER History Family History Family History: Reviewed,noncontributory to illness Social History Smoker: Non-Smoker Alcohol: Denies ETOH Use Drugs: Denies Drug Use Lives In: Custodial Patient Family History: FH: CHF (congestive heart failure) G8 FATHER FH: liver cancer G8 BROTHER, , Cause: Liver cancer Allergies: Coded Allergies: NO KNOWN ALLERGIES (Unverified , 01/08/25) Home Meds Active Scripts Tramadol HCl (Tramadol HCl) 50 Mg Tab, 50 MG PO Q8HR PRN for 5 Days, #15 TAB Prov:NIA MAREI NP 01/08/25 Cephalexin (KEFLEX CAPSULE) 250 Mg Cp, 1 CAP PO QID, #20 CAP Prov:AN SOLIS MD 10/28/20 Reported Medications Hydralazine Hcl (Hydralazine Hcl) 50 Mg Tab, 50 MG PO BID for 30 Days, MG 02/06/25 Levothyroxine Sodium (Levothyroxine Sodium) 112 Mcg Tab, 100 MCG PO, TAB 10/23/20 Atorvastatin Calcium (Lipitor) 10 Mg Tab, 1 TAB PO DAILY, #90 TAB 0 Refills 10/23/20 Metoprolol Succinate (Metoprolol Succinate Er) 50 Mg Tab, 50 MG PO DAILY, TAB 10/23/20 Calcium & Phosphorus W/ Vitami (CALCIUM) Tab, 1 TAB PO DAILY, TAB 10/23/20 Multiple Vitamins W/ Minerals (PRESERVISION AREDS) Areds Tab, 1 DROP EACHEYE DAILY, DROP 10/23/20 Gabapentin (Gabapentin) 300 Mg Cap, 400 MG PO BID, CAP 10/23/20 Ramipril (Ramipril) 10 Mg Cap, 1 CAP PO DAILY, #30 CAP 0 Refills 10/23/20 Potassium Chloride (Potassium Chloride ER) 10 Meq Tab, 10 MEQ PO DAILY, TAB 10/23/20 Current Medications Current Medications Medications (Trade) Dose Ordered Sig/Sharif Route PRN Reason Start Time Stop Time Status Last Admin Cefepime HCl 50 ml @ 12.5 mls/hr Q12HR IV 02/12/25 22:00 Gabapentin (Neurontin Capsule) 400 mg BID PO 02/12/25 10:00 UNV Levothyroxine Sodium (Synthroid Tablet) 112 mcg DAILY PO 02/12/25 10:00 UNV Metoprolol Succinate (Toprol Xl) 50 mg DAILY PO 02/12/25 10:00 UNV Ramipril (Altace Capsule) 10 mg DAILY PO 02/12/25 10:00 UNV Patient Own Medication 1 tab DAILY PO 02/12/25 10:00 UNV Patient Own Medication 50 mg BID PO 02/12/25 10:00 UNV Cyclobenzaprine HCl (Flexeril Tablet) 5 mg Q8HPRN PRN PO FOR MUSCLE SPASM 02/12/25 07:30 UNV Pantoprazole Sodium (Protonix Tablet) 40 mg DAILY@0600 PO 02/13/25 06:00 Sodium Chloride (Saline Lock Ns) 10 ml Q8HR IV 02/12/25 14:00 Docusate Sodium (Colace Capsule) 100 mg BIDPRN PRN PO FOR CONSTIPATION 02/12/25 07:30 Acetaminophen (Tylenol Tablet) 650 mg Q6HP PRN PO PAIN SCALE 1-3 OR TEMP>100.4 02/12/25 07:30 Acetaminophen/ Hydrocodone Bitart (Blanchard 5/325MG Tab) 1 tab Q4HP PRN PO MODERATE PAIN (4-6 PAIN SCALE) 02/12/25 07:30 Ondansetron HCl (Zofran) 4 mg Q4HP PRN IV NAUSEA / VOMITING 02/12/25 07:30 UNV Enoxaparin Sodium (Lovenox) 40 mg DAILY SC 02/12/25 10:00 UNV Morphine Sulfate 2 mg Q4HPRN PRN IV SEVERE PAIN (7-10 PAIN SCALE) 02/12/25 07:45 Vital Signs Vital Signs Date Time Temp Pulse Resp B/P (MAP) Pulse Ox O2 Delivery O2 Flow Rate FiO2 02/12/25 07:02 61 16 150/47 (81) 95 02/12/25 06:06 Room Air* 0 21 02/12/25 06:00 98.3 98.3 Physical Exam Generally-84 years old woman, well nourished well developed. Moderate distress HEENT-atraumatic, normocephalic Heart-regular rate and rhythm lungs clear to auscultate Abdomen soft, nontender nondistended Musculoskeletal-tender nondistended spine Musculoskeletal-no edema cyanosis Neuro-AO x3, strength and sensory intact SEPSIS Sepsis Screen Date sepsis recognized/suspect: Feb 12, 2025 Time Sepsis recognized/suspect: 0647 Recent Procedure: No On Antibiotic Therapy: No Respiratory Rate >20: No Heart Rate >90: No Temp<36 C (96.8 F) or >38.3 C: No SBP <90 or MAP <65 mmHG: No New Acute Mental Status Change: No Is the patient on CPAP, BIPAP,: No Physician Orders Chest Portable (02/12/25 06:14) Accucheck (02/12/25 06:16) Blood Culture (02/12/25 06:16) Cefepime 1gm/ 50ml (Maxipime 1gm/50ml) (02/12/25 22:00) Notify Md If Map <65 Or Bp<90 (02/12/25 06:16) If Map<65 Start Vasopressor (02/12/25 06:16) Sepsis Reassesment After Fluid (02/12/25 07:16) Tapia Catheters (02/12/25 ) Gabapentin Capsule (Neurontin Capsule) (02/12/25 10:00) Levothyroxine Tablet (Synthroid Tablet) (02/12/25 10:00) Metoprolol Xl Succinate (Toprol Xl) (02/12/25 10:00) Ramipril Capsule (Altace Capsule) (02/12/25 10:00) (Nf) Hydralazine Hcl (02/12/25 10:00) Cyclobenzaprine Tablet (Flexeril Tablet) (02/12/25 07:30) Pt Request For Service (02/12/25 07:28) Pantoprazole Tablet (Protonix Tablet) (02/13/25 06:00) Admit (02/12/25 07:28) Code Status (02/12/25 07:28) Vital Signs .PER UNIT PROTOCOL (02/12/25 07:28) Review Orders With Adm.Md (02/12/25 07:28) Encourage Activity As Tolerate (02/12/25 07:28) Regular Diet (02/12/25 Breakfast) Sodium Chloride Lock (Saline Lock Ns) (02/12/25 14:00) Docusate Sodium Capsule (Colace Capsule) (02/12/25 07:30) Acetaminophen Tablet (Tylenol Tablet) (02/12/25 07:30) Notify Md Of Changes From Base (02/12/25 07:28) Advance Directive (02/12/25 07:28) Patient Condition (02/12/25 07:28) Allergies (02/12/25 07:28) Hydrocodone-Acet 5/325mg Tab (Blanchard 5/32 (02/12/25 07:30) Ondansetron Hcl (Zofran) (02/12/25 07:30) Enoxaparin Sodium (Lovenox) (02/12/25 10:00) Cardiac Diet-2gna,Lofat,Lochol (02/12/25 Breakfast) Comprehensive Metabolic Panel (02/13/25 05:00) Comprehensive Metabolic Panel (02/14/25 05:00) Comprehensive Metabolic Panel (02/15/25 05:00) Comprehensive Metabolic Panel (02/16/25 05:00) Comprehensive Metabolic Panel (02/17/25 05:00) Complete Blood Count (02/13/25 05:00) Complete Blood Count (02/14/25 05:00) Complete Blood Count (02/15/25 05:00) Complete Blood Count (02/16/25 05:00) Complete Blood Count (02/17/25 05:00) C-Reactive Protein (02/12/25 07:28) (Nf) Atorvastatin Calcium (Lipitor) (02/12/25 10:00) Morphine Sulfate Injection (02/12/25 07:45) Vital Signs Date Time Temp Pulse Resp B/P (MAP) Pulse Ox O2 Delivery O2 Flow Rate FiO2 02/12/25 07:02 61 16 150/47 (81) 95 02/12/25 06:06 96 Room Air* 0 21 02/12/25 06:00 98.3 69 16 196/74 (114) 96 98.3 02/12/25 05:19 206/79 02/12/25 05:19 94 18 206/79 (121) 94 02/12/25 04:00 62 02/12/25 01:50 98.7 114 14 172/90 99 98.7 Laboratory Tests Test 02/12/25 04:20 02/12/25 07:00 White Blood Count 17.7 10^3/uL (4.4-10.8) #H Lactic Acid Level 2.8 mmol/L (0.4-2.0) *H Medications Medications Dose Ordered Sig/Sharif Route Start Time Stop Time Status Last Admin Dose Admin Fentanyl Citrate 100 mcg ONCE ONCE IV 02/12/25 04:45 02/12/25 04:46 DC 02/12/25 05:19 Lactated Ringer's 1,800 ml @ 1,800 mls/hr ONCE ONCE IV 02/12/25 06:30 02/12/25 07:29 DC 02/12/25 07:06 Sodium Chloride 1,000 ml @ 1,000 mls/hr Q1H ONCE IV 02/12/25 04:45 02/12/25 05:44 DC 02/12/25 05:19 Results Labs Test 02/12/25 07:00 02/12/25 06:56 02/12/25 04:20 Range/Units Lactic Acid Level 2.8 *H 0.4-2.0 mmol/L Urine Color Light-yellow Yellow Urine Clarity Clear Clear Urine pH 5.0 5.0-9.0 Urine Specific [place] 1.016 1.001-1.035 Urine Protein Negative Negative Urine Ketones Negative Negative Urine Blood Negative Negative /uL Urine Nitrite 2+ H Negative Urine Bilirubin Negative Negative Urine Urobilinogen Normal Negative mg/dL Urine Leukocyte Esterase Negative Negative /uL Urine RBC 1 0 - 4 /hpf Urine Microscopic WBC 6 H 0-5 /HPF Urine Squamous Epithelial Cells None seen <5 /hpf Urine Bacteria Many H None Seen /hpf Urine Glucose 3+ H Normal mg/dL White Blood Count 17.7 #H 4.4-10.8 10^3/uL Red Blood Count 4.45 4.0-5.20 10^6/uL Hemoglobin 14.7 12.2-16.2 g/dL Hematocrit 42.9 36.0-46.0 % Mean Corpuscular Volume 96.4 80.0-100.0 fL Mean Corpuscular Hemoglobin 33.1 H 28.0-32.0 pg Mean Corpuscular Hemoglobin Concent 34.3 32.0-36.0 g/dL Red Cell Distribution Width 15.9 H 11.8-14.3 % Platelet Count 238 140-450 10^3/uL Mean Platelet Volume 6.9 6.9-10.8 fL Neutrophils (%) (Auto) 87.3 H 37.0-80.0 % Lymphocytes (%) (Auto) 4.1 L 10.0-50.0 % Monocytes (%) (Auto) 8.6 0.0-12.0 % Eosinophils (%) (Auto) 0.0 0.0-7.0 % Basophils (%) (Auto) 0.0 0.0-2.0 % Neutrophils # (Auto) 15.5 H 1.6-8.6 10 ^3/uL Lymphocytes # (Auto) 0.7 0.4-5.4 10 ^3/uL Monocytes # (Auto) 1.5 H 0-1.3 10 ^3/uL Eosinophils # (Auto) 0 0-0.8 10 ^3/uL Basophils # (Auto) 0 0-0.2 10 ^3/uL Nucleated Red Blood Cells 0.1 % Sodium Level 125 #L 136-145 mmol/L Potassium Level 3.9 3.5-5.1 mmol/L Chloride Level 91 #L 98-107 mmol/L Carbon Dioxide Level 20 20-31 mmol/L Anion Gap 14 5-15 Blood Urea Nitrogen 21 9-23 mg/dL Creatinine 1.10 H 0.550-1.02 mg/dL Glomerular Filtration Rate Calc 49 >90 mL/min BUN/Creatinine Ratio 19.1 10.0-20.0 Serum Glucose 261 H 74-106 mg/dL Calcium Level 8.1 L 8.7-10.4 mg/dL Total Bilirubin 1.2 H 0.2-1.0 mg/dL Aspartate Amino Transferase (AST) 44 H 13-40 U/L Alanine Aminotransferase (ALT) 63 H 7-40 U/L Alkaline Phosphatase 193 H 46-116 U/L Troponin I High Sensitivity 10 </=34 ng/L Total Protein 6.8 5.7-8.2 g/dL Albumin 4.3 3.2-4.8 g/dL Primary Diagnosis Status possibly due to pain rule out infection T12 deformity of the lower extremity radiculopathy uncontrolled pain Lumbar stenosis with T12 fracture Bilateral lower extremity radiculopathic Primary hypertension Dyslipidemia Hypothyroidism Plan Chest x-ray clear no signs of infection. Check UA for possible infection Patient has times when off cefepime. Follow up with the urinalysis. If positive resume cefepime for a urinary tract infection Pain control Physical therapy evaluation Discharge back to when pain is controlled and infectious ruled out PPI for GI prophylaxis Lovenox for DVT prophylaxis Full code Cardiac diet Plan discussed with: Patient Problems List: (1) Low back pain Status: Acute (2) Closed compression fracture of thoracic vertebra Date of Service: Feb 12, 2025 Billing Provider: TESSY VILLEGAS MD Common Visit Codes: [id number] INP/OBS CARE (MOD) TESSY VILLEGAS MD Feb 12, 2025 07:26
[2025-02-12] MEDS ORDERED: ACETAMINOPHEN 325 MG TAB PO PRN (07:30)
[2025-02-12 07:43] LABS: Urine Protein, UAD Negative (Negative)
[2025-02-12 07:59] LABS: Lactic Acid w/Reflex 2.8 mmol/L (0.4-2.0)
[2025-02-12] MEDS: METOPROLOL SUCCINATE XL 50 MG TAB PO SCH (09:09)
[2025-02-12] MEDS: ENOXAPARIN SOD 40 MG/0.4 ML SYRINGE SC SCH (09:09)
[2025-02-12] MEDS ORDERED: RAMIPRIL 10 MG CAP PO SCH (10:00)
[2025-02-12] MEDS ORDERED: LEVOTHYROXINE SODIUM 112 MCG TAB PO SCH (10:00)
[2025-02-12] MEDS: GABAPENTIN 300 MG CAP PO SCH (10:00)
[2025-02-12] MEDS: MORPHINE SULFATE INJ 2 MG/ml SYRG IV PRN (11:11)
[2025-02-12] MEDS: ONDANSETRON HCL 4 MG/2 ML VIAL IV PRN (11:11)
[2025-02-12] MEDS: SODIUM CHLORIDE 0.9% 500 ML IV ONE (12:00)
[2025-02-12] MEDS: SODIUM CHLORIDE 0.9% 1,000 ML IV SCH ×2 (12:00→17:30)
[2025-02-12 14:04] LABS: Lactic Acid w/Reflex 2.3 mmol/L (0.4-2.0)
[2025-02-12] MEDS: SODIUM CHLOR 0.9% PF (SALINE LOCK) 10ML VIAL/SYR IV SCH (14:27)
[2025-02-12 14:45] VITALS: BP 175/90; PULSE 78; RESP 22; TEMP 98.8; O2SAT 96
[2025-02-12] MEDS: hydrALAZINE HCL 20 MG/ML VL IV PRN (15:04)
[2025-02-12] MEDS: HYDROcodone-ACET 5/325MG TAB PO PRN (15:05)
--- NOTE | 2025-02-12 16:49 | DVHPN2 ---
Progress Note Date Seen: Feb 12, 2025 Medical Necessity Reason Pt with a Central, PICC or Fol: Yes The following are medically ne: Austin Catheter Reason for austin catheter: Strict I&O Subjective Patient reports: No new complaints Review of Systems: HEENT:Normal, CVS:Normal, RESPIRATORY:Normal, GI:Normal, :Normal, MSK:Normal, NEURO:Normal Objective vital signs Vital Sign Date Time Temp Pulse Resp B/P (MAP) Pulse Ox O2 Delivery O2 Flow Rate FiO2 02/12/25 15:15 Room Air* 0 21 02/12/25 15:04 175/90 02/12/25 14:45 98.8 78 22 96 98.8 Total Intake and Output 02/11/25 02/11/25 02/12/25 15:00 23:00 07:00 Intake Total 600 ml Balance 600 ml medications Current Medications Medications Dose Ordered Sig/Sharif Route Start Time Stop Time Status Last Admin Dose Admin Cefepime HCl 50 ml @ 12.5 mls/hr Q12HR IV 02/12/25 22:00 Gabapentin 400 mg BID PO 02/12/25 10:00 Levothyroxine Sodium 112 mcg DAILY PO 02/12/25 10:00 Hold Metoprolol Succinate 50 mg DAILY PO 02/12/25 10:00 02/12/25 09:09 50 MG Atorvastatin Calcium 10 mg HS PO 02/12/25 22:00 Hydralazine HCl 50 mg BID PO 02/12/25 10:00 02/12/25 09:10 50 MG Cyclobenzaprine HCl 5 mg Q8HPRN PRN PO 02/12/25 07:30 Pantoprazole Sodium 40 mg DAILY@0600 PO 02/13/25 06:00 Sodium Chloride 10 ml Q8HR IV 02/12/25 14:00 02/12/25 14:27 10 ML Docusate Sodium 100 mg BIDPRN PRN PO 02/12/25 07:30 Acetaminophen 650 mg Q6HP PRN PO 02/12/25 07:30 Acetaminophen/ Hydrocodone Bitart 1 tab Q4HP PRN PO 02/12/25 07:30 02/12/25 15:05 1 TAB Ondansetron HCl 4 mg Q4HP PRN IV 02/12/25 07:30 02/12/25 11:11 4 MG Enoxaparin Sodium 40 mg DAILY SC 02/12/25 10:00 02/12/25 09:09 40 MG Morphine Sulfate 2 mg Q4HPRN PRN IV 02/12/25 07:45 02/12/25 11:11 2 MG Sodium Chloride 1,000 ml @ 100 mls/hr Q10H IV 02/12/25 11:45 02/12/25 12:00 100 MLS/HR Hydralazine HCl 10 mg Q6HP PRN IV 02/12/25 12:15 02/12/25 15:04 10 MG Lisinopril 20 mg DAILY PO 02/13/25 10:00 Future Hold Examination: GENERAL:Normal, HEENT:Normal, NECK:Normal, LUNGS:Normal, CVS:Normal, ABDOMEN:Normal, MSK:Normal, SKIN:Normal, NEURO:Normal, :Normal laboratory and microbiology Laboratory Tests 02/12/25 04:20 Test 02/12/25 04:20 Range/Units Serum Glucose 261 H 74-106 mg/dL Problem List/Assessment/Plan Problem List/Assessment/Plan #1 sepsis with uti: ivf, iv antibiotics, cultures #2 hyponatremia: ivf #3 transaminitis #4 back pain/djd/ compression fracture T12 #5 htn #6 hypothyroidism #7 hyperlipidemia advance care planning- full code- time spent 19 mins Plan discussed with: Patient My Orders My Orders Orders - CARI LONDON MD Procedure Category Date Status Time Levothyroxine Tablet PHA 02/13/25 Logged (Synthroid Tablet) 06:00 Lisinopril Tablet PHA 02/13/25 Logged (Zestril Tablet) 10:00 Pt Request For Service PT 02/12/25 Logged 16:30 Lidocaine 5% Topical PHA 02/12/25 Logged Patch (Lidoderm 5% 16:30 Lidocaine 5% Topical PHA 02/13/25 Logged Patch (Lidoderm 5% 10:00 Cefepime 1gm/ 50ml PHA 02/12/25 Logged (Maxipime 1gm/50ml) 22:00 Urine Bacterial NICOL 02/12/25 Logged Culture 16:30 Sodium Chloride 0.9% PHA 02/12/25 Logged 16:30 Complete Blood Count LAB 02/13/25 Verified 06:00 Comprehensive LAB 02/13/25 Verified Metabolic Panel 06:00 Date of Service: Feb 12, 2025 Billing Provider: CARI LONDON MD Common Visit Codes: [id number] INP/OBS CARE(HIGH) Secondary Visit Codes: [id number] CARE PLAN 30 MINUTES CARI LONDON MD Feb 12, 2025 16:49
[2025-02-12 17:00] VITALS: BP 122/72; PULSE 71; RESP 17; TEMP 98.2; O2SAT 96
[2025-02-12] MEDS ORDERED: CEFEPIME 1GM/ 50ML 50 ML IV ONE (17:45)
[2025-02-12] MEDS: LIDOCAINE 5% TOPICAL PATCH TOP ONE (18:00)
[2025-02-12 20:00] VITALS: PULSE 71; RESP 17; O2SAT 95
[2025-02-12 21:00] VITALS: BP 126/64; PULSE 71; RESP 17; TEMP 97.9; O2SAT 94
[2025-02-12] MEDS: CEFEPIME 1GM/ 50ML 50 ML IV SCH (21:40)
[2025-02-12] MEDS: ATORVASTATIN 20 MG TAB PO SCH (21:41)
[2025-02-12] MEDS ORDERED: CEFEPIME 1GM/ 50ML 50 ML IV SCH (22:00)
[2025-02-13] VITALS (8 sets, daily range): BP systolic 114–130; BP diastolic 45–95; PULSE 60–85; RESP 14–19; TEMP 97.7–99; O2SAT 94–97
[2025-02-13] MEDS: PANTOPRAZOLE 40 MG TAB PO SCH (05:38)
[2025-02-13] MEDS: LEVOTHYROXINE SODIUM 100 MCG TAB PO SCH (05:38)
[2025-02-13] MEDS: LISINOPRIL 20 MG TAB PO SCH (08:43)
[2025-02-13] MEDS ORDERED: VANCOMYCIN PER PHARMACY 0 MG IV SCH (09:15)
[2025-02-13] MEDS ORDERED: LISINOPRIL 20 MG TAB PO SCH (10:00)
[2025-02-13] MEDS: VANCOMYCIN 1GM/250ML KIT 250 ML IV ONE (10:46)
--- NOTE | 2025-02-13 11:21 | DVHPN2 ---
Subjective Patient continues to report having back pain. Reviewed: Care Plan, H&P, Labs Changes from previous H/P or p: No Changes General: Per HPI Objective Vitals Vital Signs Date Time Temp Pulse Resp B/P (MAP) Pulse Ox O2 Delivery O2 Flow Rate FiO2 02/13/25 08:48 119/72 02/13/25 08:00 63 16 95 Room Air* 0 21 02/13/25 05:00 97.8 97.8 Intake/Output Intake and Output 02/13/25 07:00 Intake Total 150 ml Output Total 1250 ml Balance -1100 ml Intake Oral 150 ml Output Urine Total 1250 ml General Appearance: Alert, Oriented X3, Cooperative, mild distress HEENT: Atraumatic, PERRLA Lungs: Clear to auscultation, Normal air movement Cardiovascular: Normal S1, Normal S2 Abdomen: Normal bowel sounds, Soft, No tenderness Musculoskeletal: Normal sensory function, Normal motor function Neuro: Normal gait, Normal speech Skin: Dry, Intact Psych/Mental Status: Mental status NL, Mood NL Medications Current Medications Medications Dose Ordered Sig/Sharif Route Start Time Stop Time Status Last Admin Dose Admin Gabapentin 400 mg BID PO 02/12/25 10:00 02/13/25 08:43 400 MG Metoprolol Succinate 50 mg DAILY PO 02/12/25 10:00 02/13/25 08:48 50 MG Atorvastatin Calcium 10 mg HS PO 02/12/25 22:00 02/12/25 21:41 10 MG Hydralazine HCl 50 mg BID PO 02/12/25 10:00 02/13/25 08:42 50 MG Cyclobenzaprine HCl 5 mg Q8HPRN PRN PO 02/12/25 07:30 Pantoprazole Sodium 40 mg DAILY@0600 PO 02/13/25 06:00 02/13/25 05:38 40 MG Sodium Chloride 10 ml Q8HR IV 02/12/25 14:00 02/13/25 05:26 10 ML Docusate Sodium 100 mg BIDPRN PRN PO 02/12/25 07:30 Acetaminophen 650 mg Q6HP PRN PO 02/12/25 07:30 Acetaminophen/ Hydrocodone Bitart 1 tab Q4HP PRN PO 02/12/25 07:30 02/13/25 10:46 1 TAB Ondansetron HCl 4 mg Q4HP PRN IV 02/12/25 07:30 02/12/25 11:11 4 MG Enoxaparin Sodium 40 mg DAILY SC 02/12/25 10:00 02/13/25 08:44 40 MG Morphine Sulfate 2 mg Q4HPRN PRN IV 02/12/25 07:45 02/12/25 11:11 2 MG Hydralazine HCl 10 mg Q6HP PRN IV 02/12/25 12:15 02/12/25 15:04 10 MG Levothyroxine Sodium 100 mcg QAM@0600 PO 02/13/25 06:00 02/13/25 05:38 100 MCG Lisinopril 20 mg DAILY PO 02/13/25 10:00 02/13/25 08:43 20 MG Lidocaine 1 patch DAILY@1800 TOP 02/13/25 18:00 Cefepime HCl 50 ml @ 12.5 mls/hr Q12HR IV 02/12/25 22:00 02/13/25 08:41 12.5 MLS/HR Sodium Chloride 1,000 ml @ 75 mls/hr Q38H10A IV 02/12/25 16:30 02/13/25 06:05 75 MLS/HR Vancomycin HCl 0 ml @ 0 mls/hr UD IV 02/13/25 09:15 Laboratory Results Chemistry Test 02/13/25 10:52 Albumin Pending Calcium Level Pending Total Protein Pending LFT Test 02/13/25 10:52 Alanine Aminotransferase (ALT) Pending Alkaline Phosphatase Pending Aspartate Amino Transferase (AST) Pending Total Bilirubin Pending Urinalysis Test 02/12/25 06:56 Urine Color Light-yellow (Yellow) Urine Clarity Clear (Clear) Urine pH 5.0 (5.0-9.0) Urine Specific [place] 1.016 (1.001-1.035) Urine Protein Negative (Negative) Urine Ketones Negative (Negative) Urine Blood Negative /uL (Negative) Urine Nitrite 2+ (Negative) H Urine Bilirubin Negative (Negative) Urine Urobilinogen Normal mg/dL (Negative) Urine Leukocyte Esterase Negative /uL (Negative) Urine RBC 1 /hpf (0 - 4) Urine Microscopic WBC 6 /HPF (0-5) H Urine Squamous Epithelial Cells None seen /hpf (<5) Urine Bacteria Many /hpf (None Seen) H Urine Glucose 3+ mg/dL (Normal) H Microbiology Microbiology Date/Time Source Procedure Growth Status 02/12/25 17:25 Urine - [place] Urine Culture - Preliminary Resulted 02/12/25 07:10 Blood Blood Culture - Preliminary Resulted Labs and/or images reviewed: Labs reviewed by me, Image(s) reviewed by me Assessment/Plan Assessment/Plan Impression: -sepsis -Gram-positive cocci in the blood -complicated cystitis -T12 deformity, noted fracture on previous CT scan -primary hypertension -hyponatremia -dyslipidemia Plan: -continue cefepime, add vancomycin given Gram-positive cocci in the blood -urine and blood cultures: Pending -continue normal saline -physical therapy -TLSO brace -repeat labs in a.m. -PUD, DVT prophylaxis -pain manage Total time spent with patient discussing and formulating plan of care: 35 minutes. This medical document was created using an electronic medical record system with [employer] dictation system. Although this document has been carefully reviewed, there may still be some phonetic and typographical errors. These areas are purely typographical due to imperfections of the software programs, and do not reflect any compromise in the patient's medical care. Plan discussed with: Patient, Spouse, Son, Other (RN) My Orders Orders - NIA MARIE NP Procedure Category Date Status Time Vancomycin Per PHA 02/13/25 In Process Pharmacy 09:15 Dme: [facility] 02/13/25 Transmitted 11:10 Date of Service: Feb 13, 2025 Billing Provider: NIA MARIE NP Common Visit Codes: [id number] INP/OBS CARE(HIGH) NIA MARIE NP Feb 13, 2025 11:20
[2025-02-13 11:28] LABS: Hematocrit 40.9 % (36.0-46.0); Hemoglobin 13.9 g/dL (12.2-16.2); Mean Corpuscular Hemoglobin 33.1 pg (28.0-32.0); Mean Corpuscular Volume 97.5 fL (80.0-100.0); Nucleated Red Blood Cells % 0.1 %
[2025-02-13 11:46] LABS: Alanine Aminotransferase 39 U/L (7-40); Albumin 3.6 g/dL (3.2-4.8); Anion Gap 10 (5-15); BUN/Creatinine Ratio 14.0 (10.0-20.0); Blood Urea Nitrogen 13 mg/dL (9-23); Carbon Dioxide 22 mmol/L (20-31); Total Protein 5.8 g/dL (5.7-8.2)
[2025-02-13 11:59] LABS: Alkaline Phosphatase 153 U/L (46-116); Bilirubin, Total 1.5 mg/dL (0.2-1.0); Calcium 7.3 mg/dL (8.7-10.4); Chloride 96 mmol/L (98-107); Glucose 241 mg/dL (74-106); Potassium 3.4 mmol/L (3.5-5.1); Sodium 128 mmol/L (136-145)
--- NOTE | 2025-02-13 14:53 | DVHPN2 ---
Progress Note - Dictate Date Seen: Feb 12, 2025 Medical Necessity Reason Pt with a Central, PICC or Fol: Yes The following are medically ne: Austin Catheter Reason for austin catheter: Strict I&O Subjective PT WITH MECH FALL WITH T12 COMPRESSION FRACTURE UNSTEADY GAIT SECONDARY TO SEPSIS BLOOD CX POSITIVE FOR GRAM + COCCI CYSTITIS HTN HYPONATREMIA vital signs Vital Sign Date Time Temp Pulse Resp B/P (MAP) Pulse Ox O2 Delivery O2 Flow Rate FiO2 02/13/25 12:10 97.7 60 16 126/60 (82) 96 97.7 02/13/25 08:00 Room Air* 0 21 Total Intake and Output 02/12/25 02/12/25 02/13/25 15:00 23:00 07:00 Intake Total 50 ml 100 ml Output Total 850 ml 400 ml Balance -800 ml -300 ml medications Current Medications Medications Dose Ordered Sig/Sharif Route Start Time Stop Time Status Last Admin Dose Admin Gabapentin 400 mg BID PO 02/12/25 10:00 02/13/25 08:43 400 MG Metoprolol Succinate 50 mg DAILY PO 02/12/25 10:00 02/13/25 08:48 50 MG Atorvastatin Calcium 10 mg HS PO 02/12/25 22:00 02/12/25 21:41 10 MG Hydralazine HCl 50 mg BID PO 02/12/25 10:00 02/13/25 08:42 50 MG Cyclobenzaprine HCl 5 mg Q8HPRN PRN PO 02/12/25 07:30 Pantoprazole Sodium 40 mg DAILY@0600 PO 02/13/25 06:00 02/13/25 05:38 40 MG Sodium Chloride 10 ml Q8HR IV 02/12/25 14:00 02/13/25 12:08 10 ML Docusate Sodium 100 mg BIDPRN PRN PO 02/12/25 07:30 Acetaminophen 650 mg Q6HP PRN PO 02/12/25 07:30 Acetaminophen/ Hydrocodone Bitart 1 tab Q4HP PRN PO 02/12/25 07:30 02/13/25 10:46 1 TAB Ondansetron HCl 4 mg Q4HP PRN IV 02/12/25 07:30 02/12/25 11:11 4 MG Enoxaparin Sodium 40 mg DAILY SC 02/12/25 10:00 02/13/25 08:44 40 MG Morphine Sulfate 2 mg Q4HPRN PRN IV 02/12/25 07:45 02/12/25 11:11 2 MG Hydralazine HCl 10 mg Q6HP PRN IV 02/12/25 12:15 02/12/25 15:04 10 MG Levothyroxine Sodium 100 mcg QAM@0600 PO 02/13/25 06:00 02/13/25 05:38 100 MCG Lisinopril 20 mg DAILY PO 02/13/25 10:00 02/13/25 08:43 20 MG Lidocaine 1 patch DAILY@1800 TOP 02/13/25 18:00 Cefepime HCl 50 ml @ 12.5 mls/hr Q12HR IV 02/12/25 22:00 02/13/25 08:41 12.5 MLS/HR Sodium Chloride 1,000 ml @ 75 mls/hr [id number] IV 02/12/25 16:30 02/13/25 06:05 75 MLS/HR Vancomycin HCl 0 ml @ 0 mls/hr UD IV 02/13/25 09:15 laboratory and microbiology Laboratory Tests 02/13/25 10:52 Test 02/13/25 10:52 Range/Units Serum Glucose 241 H 74-106 mg/dL Problem List MECH FALL WITH T12 COMPRESSION FRACTURE UNSTEADY GAIT SECONDARY TO SEPSIS BLOOD CX POSITIVE FOR GRAM + COCCI CYSTITIS HTN HYPONATREMIA Assessment/Plan ABX CORRECT HYPONATREMIA PT STILL WITH PERSISTENT LEUKOCYTOSIS Plan discussed with: Patient ALLEN GROVER MD Feb 13, 2025 14:53
[2025-02-13] MEDS: LIDOCAINE 5% TOPICAL PATCH TOP SCH (17:32)
[2025-02-14 01:00] VITALS: BP 153/50; PULSE 73; RESP 17; TEMP 97.9; O2SAT 95
[2025-02-14 05:00] VITALS: BP 117/95; PULSE 60; RESP 16; TEMP 97.7; O2SAT 96
[2025-02-14 08:40] VITALS: BP 115/61; PULSE 64; RESP 16; TEMP 98.3; O2SAT 93
[2025-02-14] MEDS ORDERED: VANCOMYCIN 1GM/250ML KIT 250 ML IV ONE (11:00)
[2025-02-14] MEDS ORDERED: GABAPENTIN 100 MG CAP PO ONE ×2 (11:30)
[2025-02-14] MEDS: GABAPENTIN 400 MG CAP PO ONE (12:31)
[2025-02-14] MEDS: VANCOMYCIN 1GM/250ML KIT 250 ML IV ONE (15:44)
[2025-02-14 17:14] VITALS: BP 134/79; PULSE 60; RESP 16; TEMP 98.4; O2SAT 96
--- NOTE | 2025-02-14 17:25 | DVHPN2 ---
[facility] Patient is seen evaluated and discussed with the along with the nurse at bedside. She is clinically stable. Admitted here for Gram-positive bacteremia and ESBL UTI. Reviewed: Care Plan, H&P, Labs Changes from previous H/P or p: No Changes General: Per HPI Objective Vitals Vital Signs Date Time Temp Pulse Resp B/P (MAP) Pulse Ox O2 Delivery O2 Flow Rate FiO2 02/14/25 17:14 98.4 60 16 134/79 (97) 96 98.4 02/14/25 08:00 Room Air* 0 21 Intake/Output Intake and Output 02/14/25 07:00 Intake Total 1258 ml Output Total 910 ml Balance 348 ml Intake Oral 1158 ml IV Total 100 ml Output Urine Total 910 ml General Appearance: Alert, Oriented X3, Cooperative, mild distress HEENT: Atraumatic, PERRLA Lungs: Clear to auscultation, Normal air movement Cardiovascular: Normal S1, Normal S2 Abdomen: Normal bowel sounds, Soft, No tenderness Musculoskeletal: Normal sensory function, Normal motor function Neuro: Normal gait, Normal speech Skin: Dry, Intact Psych/Mental Status: Mental status NL, Mood NL Medications Current Medications Medications Dose Ordered Sig/Sharif Route Start Time Stop Time Status Last Admin Dose Admin Metoprolol Succinate 50 mg DAILY PO 02/12/25 10:00 02/14/25 10:52 50 MG Atorvastatin Calcium 10 mg HS PO 02/12/25 22:00 02/13/25 21:35 10 MG Hydralazine HCl 50 mg BID PO 02/12/25 10:00 02/14/25 10:52 50 MG Cyclobenzaprine HCl 5 mg Q8HPRN PRN PO 02/12/25 07:30 Pantoprazole Sodium 40 mg DAILY@0600 PO 02/13/25 06:00 02/14/25 05:49 40 MG Sodium Chloride 10 ml Q8HR IV 02/12/25 14:00 02/14/25 15:44 10 ML Docusate Sodium 100 mg BIDPRN PRN PO 02/12/25 07:30 Acetaminophen 650 mg Q6HP PRN PO 02/12/25 07:30 Acetaminophen/ Hydrocodone Bitart 1 tab Q4HP PRN PO 02/12/25 07:30 02/14/25 05:55 1 TAB Ondansetron HCl 4 mg Q4HP PRN IV 02/12/25 07:30 02/12/25 11:11 4 MG Enoxaparin Sodium 40 mg DAILY SC 02/12/25 10:00 02/14/25 10:53 40 MG Morphine Sulfate 2 mg Q4HPRN PRN IV 02/12/25 07:45 02/12/25 11:11 2 MG Hydralazine HCl 10 mg Q6HP PRN IV 02/12/25 12:15 02/12/25 15:04 10 MG Levothyroxine Sodium 100 mcg QAM@0600 PO 02/13/25 06:00 02/14/25 05:49 100 MCG Lisinopril 20 mg DAILY PO 02/13/25 10:00 02/14/25 10:52 20 MG Lidocaine 1 patch DAILY@1800 TOP 02/13/25 18:00 02/13/25 17:32 1 PATCH Gabapentin 400 mg BID PO 02/14/25 22:00 Laboratory Results Laboratory Tests 02/13/25 10:52 02/14/25 04:40 Urinalysis Test 02/12/25 06:56 Urine Color Light-yellow (Yellow) Urine Clarity Clear (Clear) Urine pH 5.0 (5.0-9.0) Urine Specific [place] 1.016 (1.001-1.035) Urine Protein Negative (Negative) Urine Ketones Negative (Negative) Urine Blood Negative /uL (Negative) Urine Nitrite 2+ (Negative) H Urine Bilirubin Negative (Negative) Urine Urobilinogen Normal mg/dL (Negative) Urine Leukocyte Esterase Negative /uL (Negative) Urine RBC 1 /hpf (0 - 4) Urine Microscopic WBC 6 /HPF (0-5) H Urine Squamous Epithelial Cells None seen /hpf (<5) Urine Bacteria Many /hpf (None Seen) H Urine Glucose 3+ mg/dL (Normal) H Microbiology Microbiology Date/Time Source Procedure Growth Status 02/12/25 17:25 Urine - [place] Urine Culture - Final Escherichia coli - ESBL Complete 02/12/25 07:10 Blood Blood Culture - Preliminary Resulted Assessment/Plan Assessment/Plan -sepsis -Gram-positive cocci in the blood -complicated cystitis -T12 deformity, noted fracture on previous CT scan -primary hypertension -hyponatremia -dyslipidemia I will change antibiotics to ertapenem daily for ESBL UTI. We will have a midline placed for seven days of antibiotic treatment. Prepare her for prison facility. I will repeat blood cultures in the morning to make sure they are clear. Meantime continue empiric iv vancomycin. Discussed with the nurse. Plan discussed with: Patient, Spouse, Other My Orders Orders - LUDY GAGE MD Procedure Category Date Status Time Insert Midline ORDERS 02/14/25 Verified 17:19 * Billboard Poster Helper CONS 02/14/25 Verified Consult Invanz 1gm Ivpb Daily PHA 02/15/25 Verified 10:00 Date of Service: Feb 14, 2025 Billing Provider: LUDY GAGE MD Common Visit Codes: [id number] INP/OBS CARE(MOD) LUDY GAGE MD Feb 14, 2025 17:25
[2025-02-14] MEDS ORDERED: VANCOMYCIN PER PHARMACY 0 MG IV SCH (17:30)
[2025-02-14] MEDS: ERTAPENEM SOD INJ 1 GM in SODIUM CHL 0.9% 50 ML IV SCH (17:55)
[2025-02-14] MEDS: POTASSIUM CHL 20 Meq TABLET PO ONE (17:56)
[2025-02-14 20:00] VITALS: PULSE 66; RESP 18; O2SAT 97
[2025-02-14 21:00] VITALS: BP 144/57; PULSE 66; RESP 18; TEMP 98.4; O2SAT 97
[2025-02-14] MEDS: GABAPENTIN 400 MG CAP PO SCH (21:04)
[2025-02-15] VITALS (7 sets, daily range): BP systolic 106–159; BP diastolic 52–96; PULSE 61–81; RESP 14–18; TEMP 97.3–98.3; O2SAT 94–98
[2025-02-15] MEDS: DOCUSATE SOD 100 MG CAP PO PRN (11:45)
--- NOTE | 2025-02-15 18:00 | DVHPN2 ---
[facility]ive [facility]. Patient is seen evaluated and discussed with the along with the nurse at bedside. She is clinically stable. Admitted here for Gram-positive bacteremia and ESBL UTI. Reviewed: Care Plan, H&P, Labs Changes from previous H/P or p: No Changes General: Per HPI Objective Vitals Vital Signs Date Time Temp Pulse Resp B/P (MAP) Pulse Ox O2 Delivery O2 Flow Rate FiO2 02/15/25 08:29 153/61 02/15/25 08:29 73 02/15/25 08:00 Room Air* 0 21 02/15/25 05:00 97.7 18 96 97.7 Intake/Output Intake and Output 02/15/25 07:00 Intake Total 1788 ml Output Total 1375 ml Balance 413 ml Intake Oral 1438 ml IV Total 350 ml Output Urine Total 1375 ml General Appearance: Alert, Oriented X3, Cooperative, mild distress HEENT: Atraumatic, PERRLA Lungs: Clear to auscultation, Normal air movement Cardiovascular: Normal S1, Normal S2 Abdomen: Normal bowel sounds, Soft, No tenderness Musculoskeletal: Normal sensory function, Normal motor function Neuro: Normal gait, Normal speech Skin: Dry, Intact Psych/Mental Status: Mental status NL, Mood NL Medications Current Medications Medications Dose Ordered Sig/Sharif Route Start Time Stop Time Status Last Admin Dose Admin Metoprolol Succinate 50 mg DAILY PO 02/12/25 10:00 02/15/25 08:29 50 MG Atorvastatin Calcium 10 mg HS PO 02/12/25 22:00 02/14/25 21:04 10 MG Hydralazine HCl 50 mg BID PO 02/12/25 10:00 02/15/25 08:29 50 MG Cyclobenzaprine HCl 5 mg Q8HPRN PRN PO 02/12/25 07:30 Pantoprazole Sodium 40 mg DAILY@0600 PO 02/13/25 06:00 02/15/25 05:43 40 MG Sodium Chloride 10 ml Q8HR IV 02/12/25 14:00 02/15/25 14:09 10 ML Docusate Sodium 100 mg BIDPRN PRN PO 02/12/25 07:30 02/15/25 11:45 100 MG Acetaminophen 650 mg Q6HP PRN PO 02/12/25 07:30 Acetaminophen/ Hydrocodone Bitart 1 tab Q4HP PRN PO 02/12/25 07:30 02/15/25 16:06 1 TAB Ondansetron HCl 4 mg Q4HP PRN IV 02/12/25 07:30 02/12/25 11:11 4 MG Enoxaparin Sodium 40 mg DAILY SC 02/12/25 10:00 02/15/25 08:29 40 MG Morphine Sulfate 2 mg Q4HPRN PRN IV 02/12/25 07:45 02/12/25 11:11 2 MG Hydralazine HCl 10 mg Q6HP PRN IV 02/12/25 12:15 02/12/25 15:04 10 MG Levothyroxine Sodium 100 mcg QAM@0600 PO 02/13/25 06:00 02/15/25 05:43 100 MCG Lisinopril 20 mg DAILY PO 02/13/25 10:00 02/15/25 08:29 20 MG Lidocaine 1 patch DAILY@1800 TOP 02/13/25 18:00 02/15/25 17:06 1 PATCH Gabapentin 400 mg BID PO 02/14/25 22:00 02/15/25 08:28 400 MG Ertapenem 1 gm/ Sodium Chloride 50 ml @ 100 mls/hr DAILY@1800 IV 02/14/25 18:00 02/15/25 17:06 100 MLS/HR Vancomycin HCl 0 ml @ 0 mls/hr UD IV 02/14/25 17:30 Laboratory Results Laboratory Tests 02/13/25 10:52 02/15/25 05:20 Urinalysis Test 02/12/25 06:56 Urine Color Light-yellow (Yellow) Urine Clarity Clear (Clear) Urine pH 5.0 (5.0-9.0) Urine Specific [place] 1.016 (1.001-1.035) Urine Protein Negative (Negative) Urine Ketones Negative (Negative) Urine Blood Negative /uL (Negative) Urine Nitrite 2+ (Negative) H Urine Bilirubin Negative (Negative) Urine Urobilinogen Normal mg/dL (Negative) Urine Leukocyte Esterase Negative /uL (Negative) Urine RBC 1 /hpf (0 - 4) Urine Microscopic WBC 6 /HPF (0-5) H Urine Squamous Epithelial Cells None seen /hpf (<5) Urine Bacteria Many /hpf (None Seen) H Urine Glucose 3+ mg/dL (Normal) H Microbiology Microbiology Date/Time Source Procedure Growth Status 02/12/25 17:25 Urine - [place] Urine Culture - Final Escherichia coli - ESBL Complete 02/12/25 07:10 Blood Blood Culture - Final Staphylococcus epidermidis Staphylococcus haemolyticus Complete Assessment/Plan Assessment/Plan -sepsis -Gram-positive cocci in the blood -complicated cystitis -T12 deformity, noted fracture on previous CT scan -primary hypertension -hyponatremia -dyslipidemia I will change antibiotics to ertapenem daily for ESBL UTI. We will have a midline placed for seven days of antibiotic treatment. Prepare her for custodial facility. Pending social Service evaluation for custodial facility placement. Meantime continue present management. Discussed with the nurse Plan discussed with: Other My Orders Orders - LUDY GAGE MD Procedure Category Date Status Time Comprehensive LAB 02/16/25 Verified Metabolic Panel 04:00 Date of Service: Feb 15, 2025 Billing Provider: LUDY GAGE MD Common Visit Codes: [id number] INP/OBS CARE(MOD) LUDY GAGE MD Feb 15, 2025 18:00
[2025-02-15] MEDS: VANCOMYCIN 1GM/250ML KIT 250 ML IV SCH (18:40)
[2025-02-16] VITALS (9 sets, daily range): BP systolic 119–153; BP diastolic 53–116; PULSE 65–81; RESP 15–18; TEMP 36.7; O2SAT 95–97
[2025-02-16 06:12] LABS: Hematocrit 35.2 % (36.0-46.0); Hemoglobin 12.0 g/dL (12.2-16.2); Mean Corpuscular Hemoglobin 33.3 pg (28.0-32.0); Mean Corpuscular Volume 97.5 fL (80.0-100.0); Nucleated Red Blood Cells % 0.1 %
[2025-02-16 06:36] LABS: Anion Gap 9 (5-15); BUN/Creatinine Ratio 6.5 (10.0-20.0); Carbon Dioxide 20 mmol/L (20-31); Potassium 4.2 mmol/L (3.5-5.1)
[2025-02-16 06:38] LABS: Bilirubin, Total 0.9 mg/dL (0.2-1.0)
[2025-02-16 06:40] LABS: Alanine Aminotransferase 40 U/L (7-40); Albumin 2.8 g/dL (3.2-4.8); Alkaline Phosphatase 131 U/L (46-116); Blood Urea Nitrogen 6 mg/dL (9-23); Calcium 7.4 mg/dL (8.7-10.4); Chloride 98 mmol/L (98-107); Glucose 169 mg/dL (74-106); Sodium 127 mmol/L (136-145); Total Protein 4.9 g/dL (5.7-8.2)
--- NOTE | 2025-02-16 12:53 | DVHPN2 ---
Progress Note - Dictate Date Seen: Feb 15, 2025 Medical Necessity Reason Pt with a Central, PICC or Fol: Yes The following are medically ne: Austin Catheter Reason for austin catheter: Strict I&O Subjective PT WITH MECH FALL WITH T12 COMPRESSION FRACTURE UNSTEADY GAIT SECONDARY TO SEPSIS BLOOD CX POSITIVE FOR GRAM + COCCI CYSTITIS HTN HYPONATREMIA vital signs Vital Sign Date Time Temp Pulse Resp B/P (MAP) Pulse Ox O2 Delivery O2 Flow Rate FiO2 02/16/25 09:10 140/61 02/16/25 09:09 77 02/16/25 09:00 98.1 18 95 98.1 02/16/25 08:00 Room Air* 0 21 Total Intake and Output 02/15/25 02/15/25 02/16/25 15:00 23:00 07:00 Intake Total 500 ml 200 ml Output Total 325 ml 600 ml Balance 175 ml -400 ml medications Current Medications Medications Dose Ordered Sig/Sharif Route Start Time Stop Time Status Last Admin Dose Admin Metoprolol Succinate 50 mg DAILY PO 02/12/25 10:00 02/16/25 09:09 50 MG Atorvastatin Calcium 10 mg HS PO 02/12/25 22:00 02/15/25 22:11 10 MG Hydralazine HCl 50 mg BID PO 02/12/25 10:00 02/16/25 09:09 50 MG Cyclobenzaprine HCl 5 mg Q8HPRN PRN PO 02/12/25 07:30 Pantoprazole Sodium 40 mg DAILY@0600 PO 02/13/25 06:00 02/16/25 05:27 40 MG Sodium Chloride 10 ml Q8HR IV 02/12/25 14:00 02/16/25 05:28 10 ML Docusate Sodium 100 mg BIDPRN PRN PO 02/12/25 07:30 02/15/25 11:45 100 MG Acetaminophen 650 mg Q6HP PRN PO 02/12/25 07:30 Acetaminophen/ Hydrocodone Bitart 1 tab Q4HP PRN PO 02/12/25 07:30 02/16/25 11:01 1 TAB Ondansetron HCl 4 mg Q4HP PRN IV 02/12/25 07:30 02/12/25 11:11 4 MG Enoxaparin Sodium 40 mg DAILY SC 02/12/25 10:00 02/16/25 09:10 40 MG Morphine Sulfate 2 mg Q4HPRN PRN IV 02/12/25 07:45 02/12/25 11:11 2 MG Hydralazine HCl 10 mg Q6HP PRN IV 02/12/25 12:15 02/12/25 15:04 10 MG Levothyroxine Sodium 100 mcg QAM@0600 PO 02/13/25 06:00 02/16/25 05:27 100 MCG Lisinopril 20 mg DAILY PO 02/13/25 10:00 02/16/25 09:10 20 MG Lidocaine 1 patch DAILY@1800 TOP 02/13/25 18:00 02/15/25 17:06 1 PATCH Gabapentin 400 mg BID PO 02/14/25 22:00 02/16/25 09:09 400 MG Ertapenem 1 gm/ Sodium Chloride 50 ml @ 100 mls/hr DAILY@1800 IV 02/14/25 18:00 02/15/25 17:06 100 MLS/HR Vancomycin HCl 0 ml @ 0 mls/hr UD IV 02/14/25 17:30 Vancomycin HCl 250 ml @ 200 mls/hr DAILY@1900 IV 02/15/25 19:00 02/15/25 18:40 200 MLS/HR laboratory and microbiology Laboratory Tests 02/16/25 05:28 Test 02/16/25 05:28 Range/Units Serum Glucose 169 H 74-106 mg/dL Problem List MECH FALL WITH T12 COMPRESSION FRACTURE UNSTEADY GAIT SECONDARY TO SEPSIS BLOOD CX POSITIVE FOR GRAM + COCCI CYSTITIS HTN HYPONATREMIA Assessment/Plan ABX CORRECT HYPONATREMIA PT STILL WITH PERSISTENT LEUKOCYTOSIS LEUKOCYTOSIS IMPROVING HOWEVER HYPONATREMIA NOT IMPROVING 3% SALINE 200 cc Dietary Evaluation Review Recommendations by RD: Protein Supplementation Comments: 1) Initiate Ensure High Protein qd 2) Encourage optimal PO intake 3) Follow-up with PT 4) Continue to monitor I&O, labs, and skin integrity Expected Outcomes/Goals: 1) appetite and labs to improve 2) f/u in 3-5 days Plan discussed with: Patient Critical Care Time(min): 35 ALLEN GROVER MD Feb 16, 2025 12:53
--- NOTE | 2025-02-16 14:39 | DVHDS2 ---
Discharge Summary Date of Admission Feb 12, 2025 at 07:28 Date of Discharge: Feb 16, 2025 Labs/Diagnostic Data: Laboratory Results Test 02/16/25 05:28 02/15/25 05:20 02/12/25 13:16 02/12/25 06:56 White Blood Count 11.8 10^3/uL (4.4-10.8) Red Blood Count 3.61 10^6/uL (4.0-5.20) Hemoglobin 12.0 g/dL (12.2-16.2) Hematocrit 35.2 % (36.0-46.0) Mean Corpuscular Volume 97.5 fL (80.0-100.0) Mean Corpuscular Hemoglobin 33.3 pg (28.0-32.0) Mean Corpuscular Hemoglobin Concent 34.1 g/dL (32.0-36.0) Red Cell Distribution Width 15.7 % (11.8-14.3) Platelet Count 169 10^3/uL (140-450) Mean Platelet Volume 7.7 fL (6.9-10.8) Neutrophils (%) (Auto) 81.6 % (37.0-80.0) Lymphocytes (%) (Auto) 8.1 % (10.0-50.0) Monocytes (%) (Auto) 8.6 % (0.0-12.0) Eosinophils (%) (Auto) 1.5 % (0.0-7.0) Basophils (%) (Auto) 0.2 % (0.0-2.0) Neutrophils # (Auto) 9.6 10 ^3/uL (1.6-8.6) Lymphocytes # (Auto) 1.0 10 ^3/uL (0.4-5.4) Monocytes # (Auto) 1.0 10 ^3/uL (0-1.3) Eosinophils # (Auto) 0.2 10 ^3/uL (0-0.8) Basophils # (Auto) 0 10 ^3/uL (0-0.2) Nucleated Red Blood Cells 0.1 % Sodium Level 127 mmol/L (136-145) Potassium Level 4.2 mmol/L (3.5-5.1) Chloride Level 98 mmol/L (98-107) Carbon Dioxide Level 20 mmol/L (20-31) Anion Gap 9 (5-15) Blood Urea Nitrogen 6 mg/dL (9-23) Creatinine 0.92 mg/dL (0.550-1.02) Glomerular Filtration Rate Calc 61 mL/min (>90) BUN/Creatinine Ratio 6.5 (10.0-20.0) Serum Glucose 169 mg/dL (74-106) Calcium Level 7.4 mg/dL (8.7-10.4) Total Bilirubin 0.9 mg/dL (0.2-1.0) Aspartate Amino Transferase (AST) 37 U/L (13-40) Alanine Aminotransferase (ALT) 40 U/L (7-40) Alkaline Phosphatase 131 U/L (46-116) Total Protein 4.9 g/dL (5.7-8.2) Albumin 2.8 g/dL (3.2-4.8) Random Vancomycin Level 12.1 ug/mL (5-10) Lactic Acid Level 2.3 mmol/L (0.4-2.0) Urine Color Light-yellow (Yellow) Urine Clarity Clear (Clear) Urine pH 5.0 (5.0-9.0) Urine Specific [place] 1.016 (1.001-1.035) Urine Protein Negative (Negative) Urine Ketones Negative (Negative) Urine Blood Negative /uL (Negative) Urine Nitrite 2+ (Negative) Urine Bilirubin Negative (Negative) Urine Urobilinogen Normal mg/dL (Negative) Urine Leukocyte Esterase Negative /uL (Negative) Urine RBC 1 /hpf (0 - 4) Urine Microscopic WBC 6 /HPF (0-5) Urine Squamous Epithelial Cells None seen /hpf (<5) Urine Bacteria Many /hpf (None Seen) Urine Glucose 3+ mg/dL (Normal) Test 02/12/25 04:20 Troponin I High Sensitivity 10 ng/L (</=34) C-Reactive Protein High Sensitivity 0.27 mg/dL (<1.0) Other Laboratory Tests 02/16/25 05:28 Brief Hx & Hospital Course: 84 year old female presents to the emergency department via EMS with a chief complaint of back pain onset 1 week. Per EMS, patient was seen in this ED on 01/07/25 due to fall was discharged, seen in this ED on 02/06/25 due to persisting back pain, admitted and was discharged from [facility] on 02/11/25, was sent to [facility]. She noticed back pain has worsen, states she was not given any pain medication. Denies nausea, vomiting, diarrhea, headache, dizziness, fever, chills, chest pain, shortness of breath. No other symptoms or modifying factors present at this time. She is admitted and noted to have a Gram-positive bacteremia as well as ESBL E coli urinary tract infection. Patient received empiric broad-spectrum antibiotics. Switched to [facility] for ESBL E coli and felt she needs to go to [facility] facility with IV antibiotics with a midline for brief period of time. Patient is otherwise using her thoracic spine brace and participating with the physical therapy. She is voiding urine without problems after removing [place]. Her white cell count has normalized. Her repeat blood cultures negative for any growth. Therefore he is raised felt she is stable to be discharged to a [facility] facility. I have talked with the patient and her regarding her discharge plan, discharge medications including side effects and follow-up plan of care. They have verbalized understanding of this and agree with the care plan as outlined. Condition at Discharge: Stable Final Diagnosis/Problems List -ESBL E.Coli -Gram-positive cocci in the blood -complicated cystitis -T12 deformity, noted fracture on previous CT scan now with brace -primary hypertension -hyponatremia -dyslipidemia Discharge Disposition: [facility] Facility Discharge Instruct/Medications Diet: Consistent carbohydrate, Cardiac 2g Na,low cholest Activity: No Restrictions, As Tolerated Follow Up/Referral: Primary care physician next week and referral to Orthopedic surgery for further evaluation of back problem Medications: See transfer med reconciliation list Scheduled Atorvastatin Calcium (Lipitor), 1 TAB PO DAILY, (Reported) Calcium & Phosphorus W/ Vitami (Calcium), 1 TAB PO DAILY, (Reported) Cephalexin (Keflex Capsule), 1 CAP PO QID Gabapentin (Gabapentin), 400 MG PO BID, (Reported) Hydralazine Hcl (Hydralazine Hcl), 50 MG PO BID, (Reported) Metoprolol Succinate (Metoprolol Succinate Er), 50 MG PO DAILY, (Reported) Multiple Vitamins W/ Minerals (Preservision Areds), 1 DROP EACHEYE DAILY, (Reported) Potassium Chloride (Potassium Chloride ER), 10 MEQ PO DAILY, (Reported) Ramipril (Ramipril), 1 CAP PO DAILY, (Reported) Scheduled PRN Tramadol HCl (Tramadol HCl), 50 MG PO Q8HR PRN Miscellaneous Medications Levothyroxine Sodium (Levothyroxine Sodium), 100 MCG PO, (Reported) Discharge Statement: "Patient was advised to return to the ER or call 911 if any headaches, dizziness, shortness of breath, chest pain, abdominal pain, bleeding, fevers, or worsening of medical condition. Patient was counseled about treatment plan, medications, possible side effects, patientverbalized understanding. All questions were answered to the best of my ability. This discharge took greater then 30 minutes in planning, reviewing documentation, counseling the patient, and discussing with other team members." ASSESSMENT ASSESSMENT Assessment -ESBL E.Coli -Gram-positive cocci in the blood -complicated cystitis -T12 deformity, noted fracture on previous CT scan now with brace -primary hypertension -hyponatremia -dyslipidemia Date of Service: Feb 16, 2025 Billing Provider: LUDY GAGE MD Common Visit Codes: [id number] DISCH DAY >30min LUDY GAGE MD Feb 16, 2025 14:39
[2025-02-16] MEDS: CYCLOBENZAPRINE HCL 10 MG TAB PO PRN (21:30)
[2025-02-17 01:00] VITALS: BP 142/60; PULSE 66; RESP 17; TEMP 97.8; O2SAT 96
[2025-02-17 05:00] VITALS: BP 158/71; PULSE 68; RESP 17; TEMP 98; O2SAT 97
[2025-02-17 08:00] VITALS: PULSE 78; RESP 18; O2SAT 98
[2025-02-17 09:00] VITALS: BP 157/75; PULSE 62; RESP 17; TEMP 97.7; O2SAT 95
[2025-02-17 13:00] VITALS: BP 116/76; PULSE 63; RESP 19; TEMP 97.6; O2SAT 94
--- NOTE | 2025-02-17 13:36 | DVHPN2 ---
Progress Note - Dictate Date Seen: Feb 17, 2025 Medical Necessity Reason Pt with a Central, PICC or Fol: Yes The following are medically ne: [place] Catheter Reason for austin catheter: Strict I&O Subjective PT WITH MECH FALL WITH T12 COMPRESSION FRACTURE UNSTEADY GAIT SECONDARY TO SEPSIS BLOOD CX POSITIVE FOR GRAM + COCCI CYSTITIS HTN HYPONATREMIA vital signs Vital Sign Date Time Temp Pulse Resp B/P (MAP) Pulse Ox O2 Delivery O2 Flow Rate FiO2 02/17/25 13:00 97.6 63 19 116/76 (89) 94 97.6 02/17/25 08:00 Room Air* 0 21 Total Intake and Output 02/16/25 02/16/25 02/17/25 15:00 23:00 07:00 Intake Total 900 ml 300 ml Output Total 550 ml 1450 ml Balance 350 ml -1150 ml medications Current Medications Medications Dose Ordered Sig/Sharif Route Start Time Stop Time Status Last Admin Dose Admin Metoprolol Succinate 50 mg DAILY PO 02/12/25 10:00 02/17/25 09:22 50 MG Atorvastatin Calcium 10 mg HS PO 02/12/25 22:00 02/16/25 21:21 10 MG Hydralazine HCl 50 mg BID PO 02/12/25 10:00 02/17/25 09:22 50 MG Cyclobenzaprine HCl 5 mg Q8HPRN PRN PO 02/12/25 07:30 02/16/25 21:30 5 MG Pantoprazole Sodium 40 mg DAILY@0600 PO 02/13/25 06:00 02/17/25 05:31 40 MG Sodium Chloride 10 ml Q8HR IV 02/12/25 14:00 02/17/25 05:31 10 ML Docusate Sodium 100 mg BIDPRN PRN PO 02/12/25 07:30 02/15/25 11:45 100 MG Acetaminophen 650 mg Q6HP PRN PO 02/12/25 07:30 Acetaminophen/ Hydrocodone Bitart 1 tab Q4HP PRN PO 02/12/25 07:30 02/17/25 09:21 1 TAB Ondansetron HCl 4 mg Q4HP PRN IV 02/12/25 07:30 02/12/25 11:11 4 MG Enoxaparin Sodium 40 mg DAILY SC 02/12/25 10:00 02/17/25 09:23 40 MG Morphine Sulfate 2 mg Q4HPRN PRN IV 02/12/25 07:45 02/12/25 11:11 2 MG Hydralazine HCl 10 mg Q6HP PRN IV 02/12/25 12:15 02/17/25 05:38 10 MG Levothyroxine Sodium 100 mcg QAM@0600 PO 02/13/25 06:00 02/17/25 05:31 100 MCG Lisinopril 20 mg DAILY PO 02/13/25 10:00 02/17/25 09:22 20 MG Lidocaine 1 patch DAILY@1800 TOP 02/13/25 18:00 02/15/25 17:06 1 PATCH Gabapentin 400 mg BID PO 02/14/25 22:00 02/17/25 09:21 400 MG Ertapenem 1 gm/ Sodium Chloride 50 ml @ 100 mls/hr DAILY@1800 IV 02/14/25 18:00 02/16/25 18:03 100 MLS/HR Vancomycin HCl 0 ml @ 0 mls/hr UD IV 02/14/25 17:30 Vancomycin HCl 250 ml @ 200 mls/hr DAILY@1900 IV 02/15/25 19:00 02/16/25 18:04 200 MLS/HR laboratory and microbiology Laboratory Tests 02/17/25 05:10 02/16/25 05:28 Test 02/16/25 05:28 Range/Units Serum Glucose 169 H 74-106 mg/dL Problem List MECH FALL WITH T12 COMPRESSION FRACTURE UNSTEADY GAIT SECONDARY TO SEPSIS BLOOD CX POSITIVE FOR GRAM + COCCI CYSTITIS HTN HYPONATREMIA Assessment/Plan ABX CORRECT HYPONATREMIA PT STILL WITH PERSISTENT LEUKOCYTOSIS LEUKOCYTOSIS IMPROVING HOWEVER HYPONATREMIA NOT IMPROVING 3% SALINE 200 cc Dietary Evaluation Review Recommendations by RD: Protein Supplementation Comments: 1) Initiate Ensure High Protein qd 2) Encourage optimal PO intake 3) Follow-up with PT 4) Continue to monitor I&O, labs, and skin integrity Expected Outcomes/Goals: 1) appetite and labs to improve 2) f/u in 3-5 days Plan discussed with: Patient ALLEN GROVER MD Feb 17, 2025 13:36
[2025-02-17 14:11] LABS: Base Excess 1.4 mmol/L (-2.0-3.0)
== END 2025-02-17 14:05 | DRG 872 ==
LOC: EDBD 01:42 → ER 01:44 → OVERFLOW 07:28 → EAST 14:31
PROVIDERS: ADMIT Hospitalist; ATTEND Hospitalist
PROC: 05HD33Z Insertion of Infusion Device into Right Cephalic Vein, Percutaneous Approach (ICD-10-PCS; principal; 2025-02-15)
PROC: B54MZZA Ultrasonography of Right Upper Extremity Veins, Guidance (ICD-10-PCS; 2025-02-15)
DX: A41.51 Sepsis due to Escherichia coli [E. coli] (principal); M48.54XA Collapsed vertebra, not elsewhere classified, thoracic region, initial encounter for fracture; E87.1 Hypo-osmolality and hyponatremia; Z16.12 Extended spectrum beta lactamase (ESBL) resistance; I10 Essential (primary) hypertension; E03.9 Hypothyroidism, unspecified; M48.061 Spinal stenosis, lumbar region without neurogenic claudication; E78.5 Hyperlipidemia, unspecified; M54.14 Radiculopathy, thoracic region; N30.90 Cystitis, unspecified without hematuria; Z80.0 Family history of malignant neoplasm of digestive organs; Z82.49 Family history of ischemic heart disease and other diseases of the circulatory system
CPT/HCPCS: 36415; 36600; 71045; 80053; 80202; 81001; 82565; 82805; 83605; 84484; 85025; 86141; 87040; 87077; 87086; 87088; 87186; 96361; 96374; 97110; 97116; 97163; 97530; G0378; J1335; J2405

== ENCOUNTER 2025-02-28 19:42 | Inpatient (IN) | payer MEDICARE, OTHER ==
[~2025-02-28] VITALS: Ht 167.6 cm; Wt 79.3 kg
[~2025-02-28 19:42] MED LIST changes: +CYCL-611 PO; +GABA-1251 PO; +LEVO100T3 PO; +LIDO1PAD55 TOP
--- NOTE | 2025-02-28 20:05 | ED.PDOC ---
Altered Mental Status HPI Comments 84-year-old female who came to ER via EMS for altered level of consciousness. Patient picked up at [place] [facility], was noted by caregivers that patient has been acting altered and confused, speaking incomprehensible words. Patient recently treated for UTI. No fever noted. Blood sugar of 138 on scene Chief Complaint: ALOC Time Seen by MD: 20:05 Reviewed Notes: Nurses Notes Allergies: Coded Allergies: NO KNOWN ALLERGIES (Unverified , 01/08/25) Home Meds Active Scripts Tramadol HCl (Tramadol HCl) 50 Mg Tab, 50 MG PO Q8HR PRN for 5 Days, #15 TAB Prov:NIA MARIE JOB SERVICE CONSULTANT 01/08/25 Cephalexin (KEFLEX CAPSULE) 250 Mg Cp, 1 CAP PO QID, #20 CAP Prov:AN SOLIS MD 10/28/20 Reported Medications Hydralazine Hcl (Hydralazine Hcl) 50 Mg Tab, 50 MG PO BID for 30 Days, MG 02/06/25 Levothyroxine Sodium (Levothyroxine Sodium) 112 Mcg Tab, 100 MCG PO, TAB 10/23/20 Atorvastatin Calcium (Lipitor) 10 Mg Tab, 1 TAB PO DAILY, #90 TAB 0 Refills 10/23/20 Metoprolol Succinate (Metoprolol Succinate Er) 50 Mg Tab, 50 MG PO DAILY, TAB 10/23/20 Calcium & Phosphorus W/ Vitami (CALCIUM) Tab, 1 TAB PO DAILY, TAB 10/23/20 Multiple Vitamins W/ Minerals (PRESERVISION AREDS) Areds Tab, 1 DROP EACHEYE DAILY, DROP 10/23/20 Gabapentin (Gabapentin) 300 Mg Cap, 400 MG PO BID, CAP 10/23/20 Ramipril (Ramipril) 10 Mg Cap, 1 CAP PO DAILY, #30 CAP 0 Refills 10/23/20 Potassium Chloride (Potassium Chloride ER) 10 Meq Tab, 10 MEQ PO DAILY, TAB 10/23/20 Information Source: Patient, Emergency Med Personnel Mode of Arrival: EMS Severity: Unable to Care for Self Timing: Hours Duration: Since onset Prehospital treatment: Accucheck Quality: Decreased Alertness, Change in Behavior, Confusion Past Medical History PAST MEDICAL HISTORY: CHF, High Lipids, HTN, Thyroid, UTI'S Surgical History: Pacemaker PATTERN MOLDER History: No Pertinent PATTERN MOLDER History Family History Family History: Reviewed,noncontributory to illness Social History Smoker: Non-Smoker Alcohol: Denies ETOH Use Drugs: Denies Drug Use Lives In: [facility] Unable to Obtain due to: Altered Mental Status Physical Exam General Appearance: No Apparent Distress, Normal HEENT: Normal ENT Inspection, Pharynx Normal, TMs Normal Neck: Full Range of Motion, Non-Tender, Normal, Normal Inspection Respiratory: Chest Non-Tender, Lungs Clear, No Accessory Muscle Use, No Respiratory Distress, Normal Breath Sounds Cardiovascular: No Edema, No JVD, No Murmur, No Gallop, Normal Peripheral Pulses, Regular Rate/Rhythm Breast Exam: Deferred Gastrointestinal: No Organomegaly, Non Tender, No Pulsatile Mass, Normal Bowel Sounds, Soft Genitalia: Deferred Pelvic: Deferred Rectal: Deferred Extremities: No calf tenderness, Normal capillary refill, Normal inspection, Normal range of motion, Non-tender, No pedal edema Musculoskeletal : Apperance: Normal Neurologic: Alert, photography professor II-XII nml as Tested, No Motor Deficits, Normal Affect, Normal Mood, No Sensory Deficits Cerebellar Function: Normal Reflexes: Normal Skin: Dry, Normal Color, Warm Lymphatic: No Adenopathy EKG EKG : Pulse Rate (adult): 77 Cardiac Rhythm: Paced Was a procedure done? Was a procedure done?: No Differential Diagnosis (ALOC) Differential Diagnosis: Encephalopathy, Sepsis, Hypoxemia, CVA X-Ray, Labs, Meds, VS Vital Signs Date Time Temp Pulse Resp B/P (MAP) Pulse Ox O2 Delivery O2 Flow Rate FiO2 02/28/25 20:06 77 02/28/25 20:05 77 02/28/25 19:42 98.0 73 18 147/107 95 98.0 Lab Test 02/28/25 21:25 Range/Units White Blood Count 9.5 4.4-10.8 10^3/uL Red Blood Count 3.53 L 4.0-5.20 10^6/uL Hemoglobin 11.6 L 12.2-16.2 g/dL Hematocrit 34.0 L 36.0-46.0 % Mean Corpuscular Volume 96.2 80.0-100.0 fL Mean Corpuscular Hemoglobin 32.9 H 28.0-32.0 pg Mean Corpuscular Hemoglobin Concent 34.2 32.0-36.0 g/dL Red Cell Distribution Width 15.3 H 11.8-14.3 % Platelet Count 307 140-450 10^3/uL Mean Platelet Volume 6.6 L 6.9-10.8 fL Neutrophils (%) (Auto) 78.4 37.0-80.0 % Lymphocytes (%) (Auto) 9.0 L 10.0-50.0 % Monocytes (%) (Auto) 10.7 0.0-12.0 % Eosinophils (%) (Auto) 1.2 0.0-7.0 % Basophils (%) (Auto) 0.7 0.0-2.0 % Neutrophils # (Auto) 7.5 1.6-8.6 10 ^3/uL Lymphocytes # (Auto) 0.9 0.4-5.4 10 ^3/uL Monocytes # (Auto) 1.0 0-1.3 10 ^3/uL Eosinophils # (Auto) 0.1 0-0.8 10 ^3/uL Basophils # (Auto) 0.1 0-0.2 10 ^3/uL Nucleated Red Blood Cells 0.0 % Sodium Level 132 L 136-145 mmol/L Potassium Level 2.7 L 3.5-5.1 mmol/L Chloride Level 94 L 98-107 mmol/L Carbon Dioxide Level 26 20-31 mmol/L Anion Gap 12 5-15 Blood Urea Nitrogen < 5 L 9-23 mg/dL Creatinine 0.80 0.550-1.02 mg/dL Glomerular Filtration Rate Calc 72 >90 mL/min BUN/Creatinine Ratio 6.3 L 10.0-20.0 Serum Glucose 121 H 74-106 mg/dL Lactic Acid Level 1.4 0.4-2.0 mmol/L Calcium Level 8.3 L 8.7-10.4 mg/dL Magnesium Level 1.6 1.6-2.6 mg/dL Total Bilirubin 1.7 H 0.2-1.0 mg/dL Aspartate Amino Transferase (AST) 25 13-40 U/L Alanine Aminotransferase (ALT) 19 7-40 U/L Alkaline Phosphatase 188 H 46-116 U/L Total Protein 6.2 5.7-8.2 g/dL Albumin 3.8 3.2-4.8 g/dL Plasma/Serum Blood Alcohol < 3.0 <10 mg/dL EXAM: XY CHEST PORTABLE CLINICAL HISTORY: SOB TECHNIQUE: Single AP view of the chest WID: COMPARISON: XY CHEST PORTABLE on DOS: 02/12/25 FINDINGS: Lines and tubes: Right-sided dual lead pacemaker in place. Surgical clips project over the lateral left chest wall. Chest: Cardiomegaly and pulmonary vascular congestion. Calcified plaque projects over the aortic arch. No pleural effusion, pneumothorax, or consolidation. The osseous structures are grossly intact. IMPRESSION: 1. Cardiomegaly and pulmonary vascular congestion. Exam: CT HEAD WITHOUT CONTRAST History: ALOC Technique: [address] images through the posterior fossa and the supratentorial compartment were acquired without contrast and imaged using soft tissue and bone algorithms. RADIATION DOSE: DLP 937.47 mGy.cm; CTDI vol 52.94 mGy. Comparison: CT HEAD WITHOUT CONTRAST on DOS: 11/26/23, CT HEAD WITHOUT CONTRAST on DOS: 03/16/23, HEAD WITHOUT CONTRAST on DOS: 02/18/20 Findings: There is no evidence of an intracranial hemorrhage, acute large vessel infarct, mass effect, or midline shift. There is mild cerebral atrophy. Chronic small-vessel ischemic disease. Mild calcification of the carotid siphons. The calvarium, orbits, paranasal sinuses, sella, middle ears, and mastoids are u nremarkable. The superficial soft tissues are within normal limits. Impression: 1. No acute intracranial abnormality. Time of 1ST Reevaluation: 20:02 Reevaluation 1ST: Unchanged Patient Education/Counseling: Diagnosis, Treatment Family Education/Counseling: No Family Present SEPSIS Sepsis Screen Physician Orders Urinalysis (02/28/25 20:03) Chest Portable (02/28/25 20:03) Head Without Contrast (02/28/25 20:03) Drug Screen (02/28/25 20:03) Sausage Maker (02/28/25 20:03) Blood Culture (02/28/25 20:03) Covid19 Antigen Tarah (02/28/25 ) Straightcath If Unable To Void (02/28/25 20:03) Potassium Chl Ulysses Kcl (02/28/25 22:45) Vital Signs Date Time Temp Pulse Resp B/P (MAP) Pulse Ox O2 Delivery O2 Flow Rate FiO2 02/28/25 20:06 77 02/28/25 20:05 77 02/28/25 19:42 98.0 73 18 147/107 95 98.0 Laboratory Tests Test 02/28/25 21:25 Lactic Acid Level 1.4 mmol/L (0.4-2.0) White Blood Count 9.5 10^3/uL (4.4-10.8) Departure 1 Departure Time of Disposition: 22:41 Impression: Primary Impression: Metabolic encephalopathy Additional Impressions: Hypokalemia Dehydration Urinary tract infection Disposition: ADMITTED INPATIENT Admit to: Med Surg Condition: Guarded Discharged With: Self Comments 84-year-old female with a history of UTIs now with decreased mental status for 1 day. Lab review shows hypokalemia 2.7. Hyponatremia 132. Patient was given IV fluids and IV potassium replacement. Patient was given IV Rocephin. I suspect UTI. I suspect dehydration. Patient will need to be admitted for metabolic encephalopathy Critical Care Note Critical Care Time?: No Stability Stability form required: No Heart Score Heart Score: Heart Score Response (Comments) Value History N/A 0 EKG N/A 0 Age N/A 0 Risk Factors N/A 0 Troponin N/A 0 Total 0 I personally scribed for CLAU PRETTY MD ([email or web address]) on 02/28/25 at 20:05. Electronically submitted by Juan Keys ([facility]). I personally scribed for CLAU PRETTY MD ([email or web address]) on 02/28/25 at 21:52. Electronically submitted by Juan Keys ([facility]). CLAU PRETTY MD Feb 28, 2025 20:05
--- NOTE | 2025-02-28 21:40 | DVH ---
Exam: CT HEAD WITHOUT CONTRAST History: ALOC Technique: [address] images through the posterior fossa and the supratentorial compart ment were acquired without contrast and imaged using soft tissue and bone algorithms. RADIATION DOSE: DLP 937.47 mGy.cm; CTDI vol 52.94 mGy. Comparison: CT HEAD WITHOUT CONTRAST on DOS: 11/26/23, CT HEAD WITHOUT CONTRAST on DOS: 03/16/23, HEAD W ITHOUT CONTRAST on DOS: 02/18/20 Findings: There is no evidence of an intracranial hemorrhage, acute large vessel infarct, mass effect, or midli ne shift. There is mild cerebral atrophy. Chronic small-vessel ischemic disease. Mild calcification of the carotid siphons. The calvarium, orbits, paranasal sinuses, sella, middle ears, and mastoids are unremarkable. The superficial soft tissues are within normal limits. Impression: 1. No acute intracranial abnormality.
[2025-02-28 21:43] LABS: Hematocrit 34.0 % (36.0-46.0); Hemoglobin 11.6 g/dL (12.2-16.2); Mean Corpuscular Hemoglobin 32.9 pg (28.0-32.0); Mean Corpuscular Volume 96.2 fL (80.0-100.0); Nucleated Red Blood Cells % 0.0 %
--- NOTE | 2025-02-28 21:44 | DVH ---
EXAM: XY CHEST PORTABLE CLINICAL HISTORY: SOB TECHNIQUE: Single AP view of the chest WID: COMPARISON: XY CHEST PORTABLE on DOS: 02/12/25 FINDINGS: Lines and tubes: Right-sided dual lead pacemaker in place. Surgical clips project over the lateral le ft chest wall. Chest: Cardiomegaly and pulmonary vascular congestion. Calcified plaque projects over the aortic arch. No pleural effusion, pneumothorax, or consolidation. The osseous structures are grossly intact. IMPRESSION: 1. Cardiomegaly and pulmonary vascular congestion.
[2025-02-28 21:56] LABS: Alanine Aminotransferase 19 U/L (7-40); Albumin 3.8 g/dL (3.2-4.8); Anion Gap 12 (5-15); Carbon Dioxide 26 mmol/L (20-31); Total Protein 6.2 g/dL (5.7-8.2)
[2025-02-28 21:57] LABS: Alkaline Phosphatase 188 U/L (46-116); BUN/Creatinine Ratio 6.3 (10.0-20.0); Bilirubin, Total 1.7 mg/dL (0.2-1.0); Blood Urea Nitrogen < 5 mg/dL (9-23); Calcium 8.3 mg/dL (8.7-10.4); Chloride 94 mmol/L (98-107); Glucose 121 mg/dL (74-106); Magnesium 1.6 mg/dL (1.6-2.6); Potassium 2.7 mmol/L (3.5-5.1); Sodium 132 mmol/L (136-145)
[2025-02-28] MEDS: SODIUM CHLORIDE 0.9% 500 ML IVB ONE (23:02)
--- NOTE | 2025-03-01 02:56 | DVHHPRES ---
History of Present Illness Resident Creating Document: STEPHANIA AL RESIDENT Reason for Visit: Metabolic encephalopathy History of Present Illness 84-year-old female with a past medical history of hypertension, hyperlipidemia, hypothyroidism, and prior lumbar laminectomy presents o ER via EMS for altered level of consciousness. Patient picked up at [place] [facility], was noted by caregivers that patient has been acting altered and confused, speaking incomprehensible words. Patient recently treated for UTI. No fever noted. Blood sugar was 138. Denies nausea, vomiting, diarrhea, headache, dizziness, fever, chills, chest pain, shortness of breath. Past Medical History hypertension, hyperlipidemia, hypothyroidism, Smoke: No ALCOHOL: none Drugs: None Review of Systems Review of Systems ROS: Patient is confused, Allergies: Coded Allergies: NO KNOWN ALLERGIES (Unverified , 01/08/25) Medications Current Medications Medications Dose Ordered Sig/Sharif Route Start Time Stop Time Status Last Admin Dose Admin Nitroglycerin 0.4 mg Q5MINP PRN SL 03/01/25 03:00 UNV Morphine Sulfate 2 mg Q30M PRN IV 03/01/25 03:00 UNV Exam Vital Signs Vital Signs Date Time Temp Pulse Resp B/P (MAP) Pulse Ox O2 Delivery O2 Flow Rate FiO2 02/28/25 20:06 77 02/28/25 19:42 98.0 18 147/107 95 98.0 Exam GENERAL: Not in acute distress. HEENT: EOMI, Moist mucous membranes. No scleral icterus. No cervical lymphadenopathy. LUNGS: Clear to auscultation bilaterally. No accessory muscle use. CARDIOVASCULAR: Regular rate and rhythm. No murmur. No JVD. ABDOMEN: Soft, nontender and nondistended. No palpable masses. EXTREMITIES: No edema. Nontender. SKIN: No rashes or lesions. Warm. NEUROLOGIC: Alert and oriented X1 Labs/Xrays Labs Test 02/28/25 21:25 Range/Units White Blood Count 9.5 4.4-10.8 10^3/uL Red Blood Count 3.53 L 4.0-5.20 10^6/uL Hemoglobin 11.6 L 12.2-16.2 g/dL Hematocrit 34.0 L 36.0-46.0 % Mean Corpuscular Volume 96.2 80.0-100.0 fL Mean Corpuscular Hemoglobin 32.9 H 28.0-32.0 pg Mean Corpuscular Hemoglobin Concent 34.2 32.0-36.0 g/dL Red Cell Distribution Width 15.3 H 11.8-14.3 % Platelet Count 307 140-450 10^3/uL Mean Platelet Volume 6.6 L 6.9-10.8 fL Neutrophils (%) (Auto) 78.4 37.0-80.0 % Lymphocytes (%) (Auto) 9.0 L 10.0-50.0 % Monocytes (%) (Auto) 10.7 0.0-12.0 % Eosinophils (%) (Auto) 1.2 0.0-7.0 % Basophils (%) (Auto) 0.7 0.0-2.0 % Neutrophils # (Auto) 7.5 1.6-8.6 10 ^3/uL Lymphocytes # (Auto) 0.9 0.4-5.4 10 ^3/uL Monocytes # (Auto) 1.0 0-1.3 10 ^3/uL Eosinophils # (Auto) 0.1 0-0.8 10 ^3/uL Basophils # (Auto) 0.1 0-0.2 10 ^3/uL Nucleated Red Blood Cells 0.0 % Sodium Level 132 L 136-145 mmol/L Potassium Level 2.7 L 3.5-5.1 mmol/L Chloride Level 94 L 98-107 mmol/L Carbon Dioxide Level 26 20-31 mmol/L Anion Gap 12 5-15 Blood Urea Nitrogen < 5 L 9-23 mg/dL Creatinine 0.80 0.550-1.02 mg/dL Glomerular Filtration Rate Calc 72 >90 mL/min BUN/Creatinine Ratio 6.3 L 10.0-20.0 Serum Glucose 121 H 74-106 mg/dL Lactic Acid Level 1.4 0.4-2.0 mmol/L Calcium Level 8.3 L 8.7-10.4 mg/dL Magnesium Level 1.6 1.6-2.6 mg/dL Total Bilirubin 1.7 H 0.2-1.0 mg/dL Aspartate Amino Transferase (AST) 25 13-40 U/L Alanine Aminotransferase (ALT) 19 7-40 U/L Alkaline Phosphatase 188 H 46-116 U/L Total Protein 6.2 5.7-8.2 g/dL Albumin 3.8 3.2-4.8 g/dL Plasma/Serum Blood Alcohol < 3.0 <10 mg/dL SEPSIS Sepsis Screen Date sepsis recognized/suspect: Feb 28, 2025 Time Sepsis recognized/suspect: 1941 Recent Procedure: No On Antibiotic Therapy: No Respiratory Rate >20: No Heart Rate >90: No Temp<36 C (96.8 F) or >38.3 C: No SBP <90 or MAP <65 mmHG: No New Acute Mental Status Change: No Is the patient on CPAP, BIPAP,: No Physician Orders Urinalysis (02/28/25 20:03) Chest Portable (02/28/25 20:03) Head Without Contrast (02/28/25 20:03) Drug Screen (02/28/25 20:03) Canvas Goods Fabricator (02/28/25 20:03) Blood Culture (02/28/25 20:03) Covid19 Antigen Tarah (02/28/25 ) Straightcath If Unable To Void (02/28/25 20:03) Admit (03/01/25 02:49) Nitroglycerin Sublingual (Ntrostat Subli (03/01/25 03:00) Morphine Sulfate Injection (03/01/25 03:00) Oxygen By Nasal Cannula (03/01/25 02:49) Stat Ekg For Chest Pain (03/01/25 02:49) Notify Md Of Changes From Base (03/01/25 02:49) Retail Sales Specialist For 24 Hours (03/01/25 02:49) Emergency Dysrhythmia Protocol (03/01/25 02:49) Rhythm Strips Once Every Shift (03/01/25 02:49) Admit (03/01/25 02:52) Code Status (03/01/25 02:52) Sodium Chloride Lock (Saline Lock Ns) (03/01/25 06:00) 0.9% Ns 1000 Ml (03/01/25 03:00) Ondansetron Hcl (Zofran) (03/01/25 03:00) Enoxaparin Sodium (Lovenox) (03/01/25 10:00) Complete Blood Count (03/01/25 04:00) Comprehensive Metabolic Panel (03/01/25 04:00) Cardiac Diet-2gna,Lofat,Lochol (03/01/25 Breakfast) Acetaminophen Tablet (Tylenol Tablet) (03/01/25 03:00) Morphine Sulfate Injection (03/01/25 03:00) Nitroglycerin Sublingual (Ntrostat Subli (03/01/25 03:00) Morphine Sulfate Injection (03/01/25 03:00) Oxygen By Nasal Cannula (03/01/25 02:52) Stat Ekg For Chest Pain (03/01/25 02:52) Notify Md Of Changes From Base (03/01/25 02:52) Retail Sales Specialist For 24 Hours (03/01/25 02:52) Emergency Dysrhythmia Protocol (03/01/25 02:52) Vital Signs Date Time Temp Pulse Resp B/P (MAP) Pulse Ox O2 Delivery O2 Flow Rate FiO2 02/28/25 20:06 77 02/28/25 20:05 77 02/28/25 19:42 98.0 73 18 147/107 95 98.0 Laboratory Tests Test 02/28/25 21:25 Lactic Acid Level 1.4 mmol/L (0.4-2.0) White Blood Count 9.5 10^3/uL (4.4-10.8) Medications Medications Dose Ordered Sig/Sharif Route Start Time Stop Time Status Last Admin Dose Admin Ceftriaxone Sodium/Dextrose 50 ml @ 50 mls/hr ONCE ONCE IV 02/28/25 20:15 02/28/25 21:14 DC 02/28/25 23:13 50 MLS/HR Sodium Chloride 500 ml @ 500 mls/hr Q1H ONCE IVB 02/28/25 20:15 02/28/25 21:14 DC 02/28/25 23:02 500 MLS/HR Assessment/Plan Assessment/Plan # Metabolic encephalopathy secondary to electrolyte imbalance/ possible infection # Dehydration - CT head: No acute intracranial changes - CXR: Cardiomegaly and pulmonary vascular congestion - start cefepime - IV fluid 60 mL/hour - ordered blood culture # Hypokalemia - potassium was 2.7 - potassium replaced - follow up with a.mGunjan PIERCE # mild hyponatremia - potassium level was 132 - monitor labs # Hypertension - Continue home antihypertensive regimen. # Hyperlipidemia - Continue statin therapy. # Hypothyroidism - TSH ordered - Continue home levothyroxine; # History of lumbar laminectomy # prediabetic - hemoglobin A1c on 11/18/2024 was 6.1 - repeat hemoglobin A1c - on admission Blood sugar was 138 - low carb low calorie diet DVT prophylaxis: Lovenox 40 mg SC daily No GI ppx since no hx of gerds or GI bleed Goal of care discussed with patient for 31 minutes: Full code Plan discussed with Dr. Tolentino Plan discussed with: Patient My Orders Orders - STEPHANIA AL RESIDENT Procedure Category Date Status Time Admit ADMIT 03/01/25 Transmitted 02:49 Nitroglycerin PHA 03/01/25 Logged Sublingual (Ntrostat 03:00 Morphine Sulfate PHA 03/01/25 Logged Injection 03:00 Oxygen By Nasal RT 03/01/25 Transmitted Cannula 02:49 Stat Ekg For Chest [facility] 03/01/25 In Process Pain 02:49 Notify Of Changes [facility] 03/01/25 In Process From Base 02:49 Retail Sales Specialist For [facility] 03/01/25 In Process 24 Hours 02:49 Emergency Dysrhythmia [facility] 03/01/25 In Process Protocol 02:49 Rhythm Strips Once [facility] 03/01/25 In Process Every Shift 02:49 Admit ADMIT 03/01/25 Transmitted 02:52 Code Status CODE 03/01/25 Transmitted 02:52 Sodium Chloride Lock PHA 03/01/25 Transmitted (Saline Lock Ns) 06:00 0.9% Ns 1000 Ml PHA 03/01/25 Verified 03:00 Ondansetron Hcl PHA 03/01/25 Verified (Zofran) 03:00 Enoxaparin Sodium PHA 03/01/25 Verified (Lovenox) 10:00 Complete Blood Count LAB 03/01/25 Verified 04:00 Comprehensive LAB 03/01/25 Verified Metabolic Panel 04:00 Cardiac DIET 03/01/25 Verified Diet-2gna,Lofat,Lochol Breakfast Acetaminophen Tablet PHA 03/01/25 Verified (Tylenol Tablet) 03:00 Morphine Sulfate PHA 03/01/25 Verified Injection 03:00 Nitroglycerin PHA 03/01/25 Verified Sublingual (Ntrostat 03:00 Morphine Sulfate PHA 03/01/25 Verified Injection 03:00 Oxygen By Nasal RT 03/01/25 Verified Cannula 02:52 Stat Ekg For Chest [facility] 03/01/25 Verified Pain 02:52 Notify Md Of Changes [facility] 03/01/25 Verified From Base 02:52 Retail Sales Specialist For [facility] 03/01/25 Verified 24 Hours 02:52 Emergency Dysrhythmia [facility] 03/01/25 Verified Protocol 02:52 Date of Service: Mar 01, 2025 Billing Provider: ARNOLD TOLENTINO MD Common Visit Codes: 98826-[id number] INP/OBS CARE (HIGH) Secondary Visit Codes: [id number] CARE PLAN 30 MINUTES STEPHANIA AL RESIDENT Mar 01, 2025 02:56
[2025-03-01] MEDS ORDERED: NITROGLYCERIN 0.4 MG SL TAB SL PRN ×2 (03:00)
[2025-03-01] MEDS ORDERED: ONDANSETRON HCL 4 MG/2 ML VIAL IV PRN (03:00)
[2025-03-01] MEDS ORDERED: MORPHINE SULFATE INJ 2 MG/ml SYRG IV PRN ×3 (03:00)
[2025-03-01 04:39] LABS: Hematocrit 32.7 % (36.0-46.0); Hemoglobin 11.5 g/dL (12.2-16.2); Mean Corpuscular Hemoglobin 33.7 pg (28.0-32.0); Mean Corpuscular Volume 95.9 fL (80.0-100.0); Nucleated Red Blood Cells % 0.1 %
[2025-03-01 04:45] LABS: Alanine Aminotransferase 19 U/L (7-40); Albumin 3.9 g/dL (3.2-4.8); Anion Gap 12 (5-15); Carbon Dioxide 25 mmol/L (20-31); Total Protein 6.1 g/dL (5.7-8.2)
[2025-03-01 04:47] LABS: Alkaline Phosphatase 186 U/L (46-116); BUN/Creatinine Ratio 6.2 (10.0-20.0); Bilirubin, Total 1.4 mg/dL (0.2-1.0); Blood Urea Nitrogen < 5 mg/dL (9-23); Calcium 8.2 mg/dL (8.7-10.4); Chloride 97 mmol/L (98-107); Glucose 114 mg/dL (74-106); Potassium 2.9 mmol/L (3.5-5.1); Sodium 134 mmol/L (136-145)
[2025-03-01 05:32] LABS: COVID19 ANTIGEN SOFIA FIA NEGATIVE (NEGATIVE)
[2025-03-01 05:46] LABS: Triglycerides 70 mg/dL (< 150)
[2025-03-01 05:48] LABS: Cholesterol 96 mg/dL (< 200); HDL Cholesterol 43 mg/dL (40-59)
[2025-03-01] MEDS: SODIUM CHLOR 0.9% PF (SALINE LOCK) 10ML VIAL/SYR IV SCH (06:00)
[2025-03-01 07:25] VITALS: PULSE 75; RESP 12; O2SAT 94
[2025-03-01] MEDS: POTASSIUM CHL 20MEQ/100ML 100 ML IV ONE (07:37)
[2025-03-01] MEDS: SODIUM CHLORIDE 0.9% 1,000 ML IV SCH (07:37)
--- NOTE | 2025-03-01 08:21 | DVHPN2 ---
Subjective Confused; does not answer questions Reviewed: Care Plan, H&P, Labs, Medications, Previous Orders, Radiology Changes from previous H/P or p: No Changes Objective Vitals Vital Signs Date Time Temp Pulse Resp B/P (MAP) Pulse Ox O2 Delivery O2 Flow Rate FiO2 03/01/25 07:30 78 03/01/25 07:30 98.6 12 155/90 (111) 94 98.6 03/01/25 07:25 Room Air* 0 21 General Appearance: Other (Confused; speaking random things; does not answer questions) HEENT: Atraumatic Lungs: Clear to auscultation, Normal air movement Cardiovascular: Regular rate, Normal S1, Normal S2, No murmurs Abdomen: Normal bowel sounds, Soft, No tenderness Genitourinary: Other (Tapia's in place) Extremities: Other (Right upper extremity PICC line in place with no signs of bleeding/infection) Neuro: Normal speech, Cranial nerves 3-12 NL, Other (Moves all extremities; no focal deficit noticed; confused) Psych/Mental Status: Other (Confused) Medications Current Medications Medications Dose Ordered Sig/Sharif Route Start Time Stop Time Status Last Admin Dose Admin Nitroglycerin 0.4 mg Q5MINP PRN SL 03/01/25 03:00 Morphine Sulfate 2 mg Q30M PRN IV 03/01/25 03:00 Sodium Chloride 10 ml Q8HR IV 03/01/25 06:00 03/01/25 06:00 10 ML Sodium Chloride 1,000 ml @ 60 mls/hr [id number] IV 03/01/25 03:00 03/01/25 07:37 60 MLS/HR Ondansetron HCl 4 mg Q4HP PRN IV 03/01/25 03:00 Enoxaparin Sodium 40 mg DAILY SC 03/01/25 10:00 Acetaminophen 650 mg Q6HP PRN PO 03/01/25 03:00 Morphine Sulfate 2 mg Q4HPRN PRN IV 03/01/25 03:00 Laboratory Results Laboratory Tests 03/01/25 04:08 Chemistry Test 02/28/25 21:25 03/01/25 04:08 Albumin 3.8 g/dL (3.2-4.8) 3.9 g/dL (3.2-4.8) Calcium Level 8.3 mg/dL (8.7-10.4) L 8.2 mg/dL (8.7-10.4) L Magnesium Level 1.6 mg/dL (1.6-2.6) Total Protein 6.2 g/dL (5.7-8.2) 6.1 g/dL (5.7-8.2) Lipid panel Test 03/01/25 04:08 Cholesterol Level 96 mg/dL (< 200) HDL Cholesterol 43 mg/dL (40-59) Triglycerides Level 70 mg/dL (< 150) LFT Test 02/28/25 21:25 03/01/25 04:08 Alanine Aminotransferase (ALT) 19 U/L (7-40) 19 U/L (7-40) Alkaline Phosphatase 188 U/L (46-116) H 186 U/L (46-116) H Aspartate Amino Transferase (AST) 25 U/L (13-40) 23 U/L (13-40) Total Bilirubin 1.7 mg/dL (0.2-1.0) H 1.4 mg/dL (0.2-1.0) H HgA1c, TSH Test 03/01/25 04:08 Hemoglobin A1c 7.1 % A1C (<5.7) H Thyroid Stimulating Hormone (TSH) 3.18 uIU/mL (0.55-4.78) Labs and/or images reviewed: Labs reviewed by me, Image(s) reviewed by me Assessment/Plan Assessment/Plan An 84-year-old female patient; who was brought from SNF to the hospital with altered mental status; no history was provided by SNF staff; details are from last admissions. Acute metabolic/toxic encephalopathy; unclear etiology; could be due to delirium AASHISH; most likely vasomotor nephropathy Hypokalemia and hypomagnesemia History of complicated ESBL E.Coli system History of Gram-positive cocci bacteremia Chronic T12 compression fracture; usually uses a brace Hypertensive heart disease with chronic diastolic heart failure; not in exacerbation Type 2 diabetes mellitus with dyslipidemia Morbid obesity Reviewed head CT that showed no acute abnormalities Reviewed drug screen and alcohol level; within normal limits Urinalysis with no indication of infection Blood cultures with no growth so far Received IV antibiotics Continue IV fluids To replace electrolytes as indicated Blood glucose readings within normal limits for now so no insulin treatment at this time To keep NPO for now due to the mental status Fall precautions Continue monitoring Late Entry. This medical document was created using an electronic medical record system with computerized dictation system. Although this document has been carefully reviewed, there might still be some phonetic and typographical errors. These areas are purely typographical due to imperfections of the software programs, and do not reflect any compromise in the patient's medical care. Plan discussed with: Other (Nurse) Date of Service: Mar 01, 2025 Billing Provider: MARCO ROY MD Common Visit Codes: [id number] INP/OBS CARE(HIGH) MARCO ROY MD Mar 01, 2025 08:21
[2025-03-01 09:17] LABS: Urine Budding Yeast MODERATE /hpf (None Seen); Urine Hyphae Yeast PRESENT /hpf; Urine Protein, UAD Negative (Negative)
[2025-03-01 09:28] LABS: Amphetamine Screen, Urine Neg (NEGATIVE); Barbiturate Scree,Urine Neg (NEGATIVE); Benzodiazephine Screen, Urine Neg (NEGATIVE); Cannabinoid Screen, Urine Neg (NEGATIVE); Cocaine Screen, Urine Neg (NEGATIVE); Opiate Scree,Urine Neg (NEGATIVE); Phencyclidine Screen, Urine Neg (NEGATIVE)
[2025-03-01 09:35] VITALS: PULSE 78; RESP 22; O2SAT 95
[2025-03-01] MEDS: POTASSIUM EFFERVESENT TAB 25 MEQ PO ONE (11:10)
[2025-03-01] MEDS: ENOXAPARIN SOD 40 MG/0.4 ML SYRINGE SC SCH (11:36)
[2025-03-01] MEDS: MAGNESIUM SULFATE 1GM/100ML 100 ML IV SCH (11:37)
[2025-03-01] MEDS: POTASSIUM CHLORIDE 80 MEQ, LIDOCAINE 1% (LOCAL ANESTH.) 6 ML in SODIUM CHL 0.9% 500 ML IV ONE (13:50)
[2025-03-01 19:35] VITALS: PULSE 87; RESP 19; O2SAT 95
[2025-03-01] MEDS: LABETALOL HCL 20 MG/4 ML VL IV ONE (21:53)
[2025-03-02 01:00] VITALS: BP 180/96; PULSE 98; RESP 20; O2SAT 96
[2025-03-02 03:00] VITALS: BP 180/84; PULSE 98; RESP 16; O2SAT 94
[2025-03-02 04:43] LABS: Hematocrit 31.8 % (36.0-46.0); Hemoglobin 11.1 g/dL (12.2-16.2); Mean Corpuscular Hemoglobin 34.0 pg (28.0-32.0); Mean Corpuscular Volume 97.5 fL (80.0-100.0); Nucleated Red Blood Cells % 0.1 %
[2025-03-02 06:44] LABS: Alanine Aminotransferase 24 U/L (7-40); Albumin 3.5 g/dL (3.2-4.8); Anion Gap 15 (5-15); Carbon Dioxide 21 mmol/L (20-31); Chloride 100 mmol/L (98-107); Magnesium 1.6 mg/dL (1.6-2.6); Sodium 136 mmol/L (136-145); Total Protein 5.8 g/dL (5.7-8.2)
[2025-03-02 06:54] LABS: Alkaline Phosphatase 170 U/L (46-116); BUN/Creatinine Ratio 7.0 (10.0-20.0); Bilirubin, Total 1.3 mg/dL (0.2-1.0); Blood Urea Nitrogen < 5 mg/dL (9-23); Calcium 7.6 mg/dL (8.7-10.4); Glucose 120 mg/dL (74-106); Potassium 2.9 mmol/L (3.5-5.1)
[2025-03-02 07:45] VITALS: PULSE 76; RESP 21; O2SAT 95
--- NOTE | 2025-03-02 16:29 | DVHPN2 ---
Subjective Awake and alert; oriented to person and place; unsure of the date; at bedside Reviewed: Care Plan, H&P, Labs, Medications, Previous Orders, Radiology Changes from previous H/P or p: Changes Objective Vitals Vital Signs Date Time Temp Pulse Resp B/P (MAP) Pulse Ox O2 Delivery O2 Flow Rate FiO2 03/02/25 14:00 68 13 153/43 (79) 96 03/02/25 08:00 98.0 98.0 03/02/25 07:45 Room Air* 0 21 Intake/Output Intake and Output 03/02/25 07:00 Intake Total 1619.50 ml Output Total 1000 ml Balance 619.50 ml Intake IV Total 1619.50 ml Output Urine Total 1000 ml General Appearance: Alert, Cooperative, No acute distress, Other (Oriented to person and place; unsure of the date) HEENT: Atraumatic Lungs: Clear to auscultation, Normal air movement Cardiovascular: Regular rate, Normal S1, Normal S2, No murmurs Abdomen: Normal bowel sounds, Soft, No tenderness Genitourinary: Other (Tapia's in place) Extremities: No edema, Other (Right upper extremity PICC line in place with no signs of bleeding/infection) Neuro: Normal speech, Cranial nerves 3-12 NL Psych/Mental Status: Mental status NL, Mood NL Medications Current Medications Medications Dose Ordered Sig/Sharif Route Start Time Stop Time Status Last Admin Dose Admin Nitroglycerin 0.4 mg Q5MINP PRN SL 03/01/25 03:00 Morphine Sulfate 2 mg Q30M PRN IV 03/01/25 03:00 Sodium Chloride 10 ml Q8HR IV 03/01/25 06:00 03/02/25 05:54 10 ML Sodium Chloride 1,000 ml @ 60 mls/hr [id number] IV 03/01/25 03:00 03/01/25 07:37 60 MLS/HR Ondansetron HCl 4 mg Q4HP PRN IV 03/01/25 03:00 Enoxaparin Sodium 40 mg DAILY SC 03/01/25 10:00 03/02/25 10:08 40 MG Acetaminophen 650 mg Q6HP PRN PO 03/01/25 03:00 Morphine Sulfate 2 mg Q4HPRN PRN IV 03/01/25 03:00 Laboratory Results Laboratory Tests 03/02/25 04:12 03/02/25 06:05 Chemistry Test 03/02/25 06:05 Albumin 3.5 g/dL (3.2-4.8) Calcium Level 7.6 mg/dL (8.7-10.4) L Magnesium Level 1.6 mg/dL (1.6-2.6) Total Protein 5.8 g/dL (5.7-8.2) LFT Test 03/02/25 06:05 Alanine Aminotransferase (ALT) 24 U/L (7-40) Alkaline Phosphatase 170 U/L (46-116) H Aspartate Amino Transferase (AST) 33 U/L (13-40) Total Bilirubin 1.3 mg/dL (0.2-1.0) H Urinalysis Test 03/01/25 08:41 Urine Color Light-yellow (Yellow) Urine Clarity Clear (Clear) Urine pH 7.0 (5.0-9.0) Urine Specific [place] 1.010 (1.001-1.035) Urine Protein Negative (Negative) Urine Ketones 1+ (Negative) H Urine Blood Negative /uL (Negative) Urine Nitrite Negative (Negative) Urine Bilirubin Negative (Negative) Urine Urobilinogen Normal mg/dL (Negative) Urine Leukocyte Esterase Negative /uL (Negative) Urine RBC 2 /hpf (0 - 4) Urine Microscopic WBC 3 /HPF (0-5) Urine Squamous Epithelial Cells Few /hpf (<5) Urine Bacteria None seen /hpf (None Seen) Urine Yeast with Hyphae Present /hpf Urine Yeast (Budding) Moderate /hpf (None Seen) Urine Glucose Normal mg/dL (Normal) Microbiology Microbiology Date/Time Source Procedure Growth Status 02/28/25 21:20 Blood Blood Culture - Preliminary NO GROWTH AFTER 24 HOURS OF INCUBATION. Resulted Labs and/or images reviewed: Labs reviewed by me, Image(s) reviewed by me Assessment/Plan Assessment/Plan An 84-year-old female patient; who was brought from SNF to the hospital with altered mental status; no history was provided by SNF staff; details are from last admissions. Acute metabolic/toxic encephalopathy; unclear etiology; could be due to delirium; resolved AASHISH; most likely vasomotor nephropathy Hypokalemia and hypomagnesemia History of complicated ESBL E.Coli system History of Gram-positive cocci bacteremia Chronic T12 compression fracture; usually uses a brace Hypertensive heart disease with chronic diastolic heart failure; not in exacerbation Type 2 diabetes mellitus with dyslipidemia Morbid obesity Reviewed head CT that showed no acute abnormalities Reviewed drug screen and alcohol level; within normal limits Urinalysis with no indication of infection Blood cultures with no growth so far Received IV antibiotics Continue IV fluids To replace electrolytes as indicated To start diet To start insulin management and adjust according to blood glucose monitoring To consider removing Tapia's catheter tomorrow if continues to be mentally stable To continue monitoring blood pressure and decide regarding starting antihypertensive medications Fall precautions Continue monitoring Goals of care discussed with the patient and her for 20 minutes; full code Late Entry. This medical document was created using an electronic medical record system with computerized dictation system. Although this document has been carefully reviewed, there might still be some phonetic and typographical errors. These areas are purely typographical due to imperfections of the software programs, and do not reflect any compromise in the patient's medical care. Plan discussed with: Patient, Spouse, Other (Nurse) My Orders Orders - MARCO ROY MD Procedure Category Date Status Time Cardiac DIET 03/02/25 Transmitted Diet-2gna,Lofat,Lochol Dinner Magnesium Ulysses PHA 03/02/25 Verified 17:00 Potassium Effervesent PHA 03/02/25 Verified Tab (Klor-Con/Ef) 16:30 Date of Service: Mar 02, 2025 Billing Provider: MARCO ROY MD Common Visit Codes: [id number] INP/OBS CARE(HIGH) Secondary Visit Codes: [id number] CARE PLAN 30 MINUTES (20 minutes) MARCO ROY MD Mar 02, 2025 16:29
[2025-03-02] MEDS: POTASSIUM EFFERVESENT TAB 25 MEQ PO ONE (16:54)
[2025-03-02] MEDS: MAGNESIUM SULFATE 1GM/100ML 100 ML IV SCH (17:30)
[2025-03-03] MEDS: ACETAMINOPHEN 325 MG TAB PO PRN (03:20)
[2025-03-03] MEDS ORDERED: DEXTROSE (50%) 50ML SYRG IV PRN (06:30)
[2025-03-03] MEDS: InsuLIN REG 1unit/0.01ml Soln (100units/ml) SC SCH (07:00)
[2025-03-03] MEDS: ACCU-CHEK COMFORT CURVE STRIP VI SCH (07:13)
[2025-03-03 08:31] LABS: Hematocrit 31.2 % (36.0-46.0); Hemoglobin 10.6 g/dL (12.2-16.2); Mean Corpuscular Hemoglobin 33.0 pg (28.0-32.0); Mean Corpuscular Volume 97.2 fL (80.0-100.0); Nucleated Red Blood Cells % 0.0 %
[2025-03-03 08:44] LABS: Anion Gap 12 (5-15); Carbon Dioxide 22 mmol/L (20-31); Chloride 102 mmol/L (98-107)
[2025-03-03 08:46] LABS: Calcium 7.7 mg/dL (8.7-10.4); Potassium 2.6 mmol/L (3.5-5.1); Sodium 136 mmol/L (136-145)
[2025-03-03 08:51] LABS: BUN/Creatinine Ratio 7.0 (10.0-20.0); Blood Urea Nitrogen < 5 mg/dL (9-23); Glucose 126 mg/dL (74-106); Magnesium 2.1 mg/dL (1.6-2.6)
[2025-03-03] MEDS: hydrALAZINE HCL 20 MG/ML VL IV ONE ×2 (11:37→20:49)
--- NOTE | 2025-03-03 11:54 | DVHPN2 ---
Subjective Did not share any complaints; would like to get rid of the Tapia's catheter Reviewed: Care Plan, H&P, Labs, Medications, Previous Orders, Radiology Changes from previous H/P or p: Changes Objective Vitals Vital Signs Date Time Temp Pulse Resp B/P (MAP) Pulse Ox O2 Delivery O2 Flow Rate FiO2 03/03/25 11:37 181/70 03/03/25 10:00 68 16 96 03/03/25 08:00 Room Air* 0 21 03/02/25 20:00 97.5 97.5 General Appearance: Alert, Cooperative, No acute distress, Other (Oriented to person and place; unsure of the date) HEENT: Atraumatic Lungs: Clear to auscultation, Normal air movement Cardiovascular: Regular rate, Normal S1, Normal S2, No murmurs Abdomen: Normal bowel sounds, Soft, No tenderness Genitourinary: Other (Tapia's in place; to be removed) Extremities: No edema, Other (Right upper extremity PICC line in place with no signs of bleeding/infection) Neuro: Normal speech, Cranial nerves 3-12 NL Psych/Mental Status: Mental status NL, Mood NL Medications Current Medications Medications Dose Ordered Sig/Sharif Route Start Time Stop Time Status Last Admin Dose Admin Nitroglycerin 0.4 mg Q5MINP PRN SL 03/01/25 03:00 Morphine Sulfate 2 mg Q30M PRN IV 03/01/25 03:00 Sodium Chloride 10 ml Q8HR IV 03/01/25 06:00 03/02/25 05:54 10 ML Sodium Chloride 1,000 ml @ 60 mls/hr [id number] IV 03/01/25 03:00 03/01/25 07:37 60 MLS/HR Ondansetron HCl 4 mg Q4HP PRN IV 03/01/25 03:00 Enoxaparin Sodium 40 mg DAILY SC 03/01/25 10:00 03/03/25 11:36 40 MG Acetaminophen 650 mg Q6HP PRN PO 03/01/25 03:00 03/03/25 03:20 650 MG Morphine Sulfate 2 mg Q4HPRN PRN IV 03/01/25 03:00 Diagnostic Test (Pha) 1 strip ACHS 03/03/25 07:00 03/03/25 11:39 1 STRIP Insulin Human Regular ACHS SC 03/03/25 07:00 03/03/25 11:43 2 UNITS Dextrose 50 ml UD PRN IV 03/03/25 06:30 Laboratory Results Laboratory Tests 03/03/25 08:14 Chemistry Test 03/03/25 08:14 Calcium Level 7.7 mg/dL (8.7-10.4) L Magnesium Level 2.1 mg/dL (1.6-2.6) Urinalysis Test 03/01/25 08:41 Urine Color Light-yellow (Yellow) Urine Clarity Clear (Clear) Urine pH 7.0 (5.0-9.0) Urine Specific [place] 1.010 (1.001-1.035) Urine Protein Negative (Negative) Urine Ketones 1+ (Negative) H Urine Blood Negative /uL (Negative) Urine Nitrite Negative (Negative) Urine Bilirubin Negative (Negative) Urine Urobilinogen Normal mg/dL (Negative) Urine Leukocyte Esterase Negative /uL (Negative) Urine RBC 2 /hpf (0 - 4) Urine Microscopic WBC 3 /HPF (0-5) Urine Squamous Epithelial Cells Few /hpf (<5) Urine Bacteria None seen /hpf (None Seen) Urine Yeast with Hyphae Present /hpf Urine Yeast (Budding) Moderate /hpf (None Seen) Urine Glucose Normal mg/dL (Normal) Microbiology Microbiology Date/Time Source Procedure Growth Status 02/28/25 21:20 Blood Blood Culture - Preliminary NO GROWTH AFTER 48 HOURS OF INCUBATION. Resulted Labs and/or images reviewed: Labs reviewed by me, Image(s) reviewed by me Assessment/Plan Assessment/Plan An 84-year-old female patient; who was brought from SNF to the hospital with altered mental status; no history was provided by SNF staff; details are from last admissions; currently patient does not remember anything regarding what happened that promoted bringing her to the emergency department. Acute metabolic/toxic encephalopathy; unclear etiology; could be due to delirium; resolved AASHISH; most likely vasomotor nephropathy Hypokalemia and hypomagnesemia; unclear etiology History of complicated ESBL E.Coli UTI; asymptomatic; urinalysis with no indication of infection History of Gram-positive cocci bacteremia; blood cultures are negative so far Chronic T12 compression fracture; usually uses a brace Hypertensive heart disease with chronic diastolic heart failure; not in exacerbation Type 2 diabetes mellitus with dyslipidemia Physical deconditioning due to above Morbid obesity Reviewed head CT that showed no acute abnormalities Reviewed drug screen and alcohol level; within normal limits Received IV antibiotics Continue IV fluids To replace electrolytes as indicated Tolerating well diet Continue insulin management and adjust according to blood glucose monitoring To remove Tapia's catheter To continue monitoring blood pressure and decide regarding starting antihypertensive medications Fall precautions Consulted Physical therapy and Hospitalist Continue monitoring Late Entry. This medical document was created using an electronic medical record system with computerized dictation system. Although this document has been carefully reviewed, there might still be some phonetic and typographical errors. These areas are purely typographical due to imperfections of the software programs, and do not reflect any compromise in the patient's medical care. Plan discussed with: Patient, Other (Nurse) My Orders Orders - MARCO ROY MD Procedure Category Date Status Time Cardiac DIET 03/02/25 Transmitted Diet-2gna,Lofat,Lochol Dinner Glucose Blood PHA 03/03/25 In Process (Accu-Chek Comfort 07:00 Insulin R (Human) PHA 03/03/25 In Process (Insulin R) 07:00 Dextrose 50% Syringe PHA 03/03/25 In Process 06:30 Date of Service: Mar 03, 2025 Billing Provider: MACRO ROY MD Common Visit Codes: [id number] INP/OBS CARE(HIGH) MARCO ROY MD Mar 03, 2025 11:54
[2025-03-03] MEDS: LOSARTAN POTASSIUM 50 MG TAB PO ONE (13:55)
[2025-03-03 20:03] VITALS: PULSE 85; RESP 20; O2SAT 97
[2025-03-03 23:52] VITALS: BP_SYST 208; BP_SYST 209; BP_DIAS 68; PULSE 102; PULSE 72; RESP 18; TEMP 98.2; O2SAT 94; O2SAT 98; O2SAT 99
[2025-03-04] VITALS (10 sets, daily range): BP systolic 123–198; BP diastolic 51–97; PULSE 68–83; RESP 17–18; TEMP 97.1–98.6; O2SAT 92–98
[2025-03-04] MEDS: POTASSIUM EFFERVESENT TAB 25 MEQ PO ONE ×2 (02:44→11:44)
[2025-03-04] MEDS: hydrALAZINE HCL 20 MG/ML VL IV ONE (05:30)
[2025-03-04 09:08] LABS: Hematocrit 35.0 % (36.0-46.0); Hemoglobin 12.2 g/dL (12.2-16.2); Mean Corpuscular Hemoglobin 33.0 pg (28.0-32.0); Mean Corpuscular Volume 95.1 fL (80.0-100.0); Nucleated Red Blood Cells % 0.1 %
[2025-03-04 09:24] LABS: Alanine Aminotransferase 22 U/L (7-40); Albumin 3.3 g/dL (3.2-4.8); Anion Gap 13 (5-15); Carbon Dioxide 21 mmol/L (20-31); Chloride 103 mmol/L (98-107); Sodium 137 mmol/L (136-145)
[2025-03-04 09:25] LABS: Bilirubin, Total 1.2 mg/dL (0.2-1.0)
[2025-03-04 09:27] LABS: Alkaline Phosphatase 167 U/L (46-116); BUN/Creatinine Ratio 6.7 (10.0-20.0); Blood Urea Nitrogen < 5 mg/dL (9-23); Calcium 8.3 mg/dL (8.7-10.4); Glucose 125 mg/dL (74-106); Potassium 3.0 mmol/L (3.5-5.1); Total Protein 5.6 g/dL (5.7-8.2)
[2025-03-04] MEDS: LOSARTAN POTASSIUM 50 MG TAB PO SCH (09:59)
--- NOTE | 2025-03-04 10:29 | DVHPN2 ---
Subjective No complaints except for weakness Blood pressure is still high Reviewed: Care Plan, H&P, Labs, Medications, Previous Orders, Radiology Changes from previous H/P or p: Changes Objective Vitals Vital Signs Date Time Temp Pulse Resp B/P (MAP) Pulse Ox O2 Delivery O2 Flow Rate FiO2 03/04/25 09:59 178/63 03/04/25 05:01 98.6 83 18 98 98.6 03/03/25 23:52 Room Air* 0 21 Intake/Output Intake and Output 03/04/25 06:59 Intake Total 200 ml Balance 200 ml Intake Oral 200 ml # Voids 1 General Appearance: Alert, Cooperative, No acute distress, Other (Oriented to person and place; unsure of the date) HEENT: Atraumatic Lungs: Clear to auscultation, Normal air movement Cardiovascular: Regular rate, Normal S1, Normal S2, No murmurs Abdomen: Normal bowel sounds, Soft, No tenderness Genitourinary: Other (Tapia's in place; to be removed) Extremities: No edema, Other (Right upper extremity PICC line in place with no signs of bleeding/infection) Neuro: Normal speech, Cranial nerves 3-12 NL Psych/Mental Status: Mental status NL, Mood NL Medications Current Medications Medications Dose Ordered Sig/Sharif Route Start Time Stop Time Status Last Admin Dose Admin Nitroglycerin 0.4 mg Q5MINP PRN SL 03/01/25 03:00 Morphine Sulfate 2 mg Q30M PRN IV 03/01/25 03:00 Sodium Chloride 10 ml Q8HR IV 03/01/25 06:00 03/04/25 05:34 10 ML Sodium Chloride 1,000 ml @ 60 mls/hr [id number] IV 03/01/25 03:00 03/03/25 12:30 60 MLS/HR Ondansetron HCl 4 mg Q4HP PRN IV 03/01/25 03:00 Enoxaparin Sodium 40 mg DAILY SC 03/01/25 10:00 03/04/25 09:52 40 MG Acetaminophen 650 mg Q6HP PRN PO 03/01/25 03:00 03/03/25 03:20 650 MG Morphine Sulfate 2 mg Q4HPRN PRN IV 03/01/25 03:00 Diagnostic Test (Pha) 1 strip ACHS 03/03/25 07:00 03/04/25 06:15 1 STRIP Insulin Human Regular ACHS SC 03/03/25 07:00 03/03/25 11:43 2 UNITS Dextrose 50 ml UD PRN IV 03/03/25 06:30 Losartan Potassium 100 mg DAILY PO 03/04/25 10:00 03/04/25 09:59 100 MG Amlodipine Besylate 10 mg DAILY PO 03/04/25 06:00 03/04/25 09:58 10 MG Laboratory Results Laboratory Tests 03/04/25 08:40 Chemistry Test 03/04/25 08:40 Albumin 3.3 g/dL (3.2-4.8) Calcium Level 8.3 mg/dL (8.7-10.4) L Total Protein 5.6 g/dL (5.7-8.2) L LFT Test 03/04/25 08:40 Alanine Aminotransferase (ALT) 22 U/L (7-40) Alkaline Phosphatase 167 U/L (46-116) H Aspartate Amino Transferase (AST) 24 U/L (13-40) Total Bilirubin 1.2 mg/dL (0.2-1.0) H Urinalysis Test 03/01/25 08:41 Urine Color Light-yellow (Yellow) Urine Clarity Clear (Clear) Urine pH 7.0 (5.0-9.0) Urine Specific [place] 1.010 (1.001-1.035) Urine Protein Negative (Negative) Urine Ketones 1+ (Negative) H Urine Blood Negative /uL (Negative) Urine Nitrite Negative (Negative) Urine Bilirubin Negative (Negative) Urine Urobilinogen Normal mg/dL (Negative) Urine Leukocyte Esterase Negative /uL (Negative) Urine RBC 2 /hpf (0 - 4) Urine Microscopic WBC 3 /HPF (0-5) Urine Squamous Epithelial Cells Few /hpf (<5) Urine Bacteria None seen /hpf (None Seen) Urine Yeast with Hyphae Present /hpf Urine Yeast (Budding) Moderate /hpf (None Seen) Urine Glucose Normal mg/dL (Normal) Microbiology Microbiology Date/Time Source Procedure Growth Status 02/28/25 21:20 Blood Blood Culture - Preliminary NO GROWTH AFTER 72 HOURS OF INCUBATION. Resulted Assessment/Plan Assessment/Plan Acute metabolic encephalopathy, resolved Uncontrolled hypertension Hypokalemia AASHISH most likely vasomotor nephropathy Recent T12 compression fracture Chronic back pain Recent UTI with ESBL Type 2 diabetes Morbid obesity Hypothyroidism Hypertension Plan Continue losartan and amlodipine Add metoprolol 50 mg daily Physical therapy evaluation Discontinue the IV fluids Resume levothyroxine 100 mcg daily Get urine culture Replace potassium p.o. Monitor closely Full code The rest of the management will depend on the hospital course Plan discussed with: Patient Date of Service: Mar 04, 2025 Billing Provider: TRINA JIMENEZ MD Common Visit Codes: [id number] INP/OBS CARE(HIGH) TRINA JIMENEZ MD Mar 04, 2025 10:29
[2025-03-04] MEDS: LEVOTHYROXINE SODIUM 100 MCG TAB PO ONE (11:40)
[2025-03-04] MEDS: METOPROLOL SUCCINATE XL 50 MG TAB PO ONE (11:44)
[2025-03-05 00:51] VITALS: BP_SYST 113; BP_SYST 175; BP_DIAS 74; BP_DIAS 76; PULSE 74; RESP 18; TEMP 98; O2SAT 74; O2SAT 95
[2025-03-05] MEDS: hydrALAZINE HCL 20 MG/ML VL IV ONE (00:56)
[2025-03-05 05:00] VITALS: BP 129/62; PULSE 75; RESP 18; TEMP 97.8; O2SAT 95
[2025-03-05 05:59] LABS: Chloride 101 mmol/L (98-107); Sodium 138 mmol/L (136-145)
[2025-03-05 06:00] LABS: Anion Gap 12 (5-15); Carbon Dioxide 25 mmol/L (20-31)
[2025-03-05 06:06] LABS: Glucose 89 mg/dL (74-106)
[2025-03-05 06:10] LABS: BUN/Creatinine Ratio 6.8 (10.0-20.0); Blood Urea Nitrogen < 5 mg/dL (9-23); Calcium 8.2 mg/dL (8.7-10.4); Potassium 3.0 mmol/L (3.5-5.1)
[2025-03-05] MEDS: LEVOTHYROXINE SODIUM 100 MCG TAB PO SCH (06:36)
[2025-03-05 06:39] LABS: Magnesium 1.6 mg/dL (1.6-2.6)
[2025-03-05 08:00] VITALS: PULSE 65; PULSE 77; RESP 20; O2SAT 94
[2025-03-05] MEDS: METOPROLOL SUCCINATE XL 50 MG TAB PO SCH (08:56)
[2025-03-05 09:00] VITALS: BP 165/71; PULSE 77; RESP 20; TEMP 98.5; O2SAT 94
--- NOTE | 2025-03-05 11:40 | DVHDS2 ---
Discharge Summary Date of Admission Mar 01, 2025 at 02:49 Date of Discharge: Mar 05, 2025 Labs/Diagnostic Data: Laboratory Results Test 03/05/25 11:17 03/05/25 04:53 03/04/25 08:40 03/01/25 08:41 POC Glucose 131 mg/dl (70-106) Sodium Level 138 mmol/L (136-145) Potassium Level 3.0 mmol/L (3.5-5.1) Chloride Level 101 mmol/L (98-107) Carbon Dioxide Level 25 mmol/L (20-31) Anion Gap 12 (5-15) Blood Urea Nitrogen < 5 mg/dL (9-23) Creatinine 0.73 mg/dL (0.550-1.02) Glomerular Filtration Rate Calc 81 mL/min (>90) BUN/Creatinine Ratio 6.8 (10.0-20.0) Serum Glucose 89 mg/dL (74-106) Calcium Level 8.2 mg/dL (8.7-10.4) Magnesium Level 1.6 mg/dL (1.6-2.6) White Blood Count 6.3 10^3/uL (4.4-10.8) Red Blood Count 3.69 10^6/uL (4.0-5.20) Hemoglobin 12.2 g/dL (12.2-16.2) Hematocrit 35.0 % (36.0-46.0) Mean Corpuscular Volume 95.1 fL (80.0-100.0) Mean Corpuscular Hemoglobin 33.0 pg (28.0-32.0) Mean Corpuscular Hemoglobin Concent 34.7 g/dL (32.0-36.0) Red Cell Distribution Width 15.7 % (11.8-14.3) Platelet Count 338 10^3/uL (140-450) Mean Platelet Volume 7.0 fL (6.9-10.8) Neutrophils (%) (Auto) 75.3 % (37.0-80.0) Lymphocytes (%) (Auto) 13.3 % (10.0-50.0) Monocytes (%) (Auto) 8.8 % (0.0-12.0) Eosinophils (%) (Auto) 1.9 % (0.0-7.0) Basophils (%) (Auto) 0.7 % (0.0-2.0) Neutrophils # (Auto) 4.7 10 ^3/uL (1.6-8.6) Lymphocytes # (Auto) 0.8 10 ^3/uL (0.4-5.4) Monocytes # (Auto) 0.5 10 ^3/uL (0-1.3) Eosinophils # (Auto) 0.1 10 ^3/uL (0-0.8) Basophils # (Auto) 0 10 ^3/uL (0-0.2) Nucleated Red Blood Cells 0.1 % Total Bilirubin 1.2 mg/dL (0.2-1.0) Aspartate Amino Transferase (AST) 24 U/L (13-40) Alanine Aminotransferase (ALT) 22 U/L (7-40) Alkaline Phosphatase 167 U/L (46-116) Total Protein 5.6 g/dL (5.7-8.2) Albumin 3.3 g/dL (3.2-4.8) Urine Color Light-yellow (Yellow) Urine Clarity Clear (Clear) Urine pH 7.0 (5.0-9.0) Urine Specific [place] 1.010 (1.001-1.035) Urine Protein Negative (Negative) Urine Ketones 1+ (Negative) Urine Blood Negative /uL (Negative) Urine Nitrite Negative (Negative) Urine Bilirubin Negative (Negative) Urine Urobilinogen Normal mg/dL (Negative) Urine Leukocyte Esterase Negative /uL (Negative) Urine RBC 2 /hpf (0 - 4) Urine Microscopic WBC 3 /HPF (0-5) Urine Squamous Epithelial Cells Few /hpf (<5) Urine Bacteria None seen /hpf (None Seen) Urine Yeast with Hyphae Present /hpf Urine Yeast (Budding) Moderate /hpf (None Seen) Urine Glucose Normal mg/dL (Normal) Urine Opiates Screen Neg (NEGATIVE) Urine Fentanyl Screen Neg (NEGATIVE) Urine Barbiturates Screen Neg (NEGATIVE) Urine Phencyclidine Screen Neg (NEGATIVE) Urine Amphetamines Screen Neg (NEGATIVE) Urine Benzodiazepines Screen Neg (NEGATIVE) Urine Cocaine Screen Neg (NEGATIVE) Urine Cannabinoids Screen Neg (NEGATIVE) Test 03/01/25 04:20 03/01/25 04:08 02/28/25 21:25 SARS-CoV-2 Antigen (Rapid) Negative (NEGATIVE) Hemoglobin A1c 7.1 % A1C (<5.7) Triglycerides Level 70 mg/dL (< 150) Cholesterol Level 96 mg/dL (< 200) LDL Cholesterol 37 mg/dL (< 100) HDL Cholesterol 43 mg/dL (40-59) Thyroid Stimulating Hormone (TSH) 3.18 uIU/mL (0.55-4.78) Lactic Acid Level 1.4 mmol/L (0.4-2.0) Plasma/Serum Blood Alcohol < 3.0 mg/dL (<10) Other Laboratory Tests 03/05/25 04:53 03/04/25 08:40 Brief Hx & Hospital Course: Final diagnoses: Acute metabolic encephalopathy, resolved Uncontrolled hypertension Hypokalemia AASHISH most likely vasomotor nephropathy Recent T12 compression fracture Chronic back pain Recent UTI with ESBL Type 2 diabetes Morbid obesity Hypothyroidism Hypertension Generalized weakness 84-year-old female who was admitted with metabolic encephalopathy due to UTI The urine culture showed no growth so far however she has a history of ESBL UTI in the past With antibiotics and IV fluids she improved and her mental status back to normal however she is still very weak physically and she needs rehab She was [facility] before but the family do not want her to go there and now they want to go to a different [facility] facility The patient is stable for discharge after her potassium and magnesium are replaced today potassium is 3.0 magnesium 1.6 She is asymptomatic Generalized weakness to be treated with physical therapy at the facility Stable for discharge Her blood pressure has been high and therefore metoprolol was added to her regimen of amlodipine and losartan Condition at Discharge: Stable Final Diagnosis/Problems List Acute metabolic encephalopathy, resolved Uncontrolled hypertension Hypokalemia AASHISH most likely vasomotor nephropathy Recent T12 compression fracture Chronic back pain Recent UTI with ESBL Type 2 diabetes Morbid obesity Hypothyroidism Hypertension Discharge Disposition: Alf Facility SNF Discharge Will this Physician continue t: No Discharge Instruct/Medications Diet: Cardiac 2g Na,low cholest Activity: No Restrictions, As Tolerated Follow Up/Referral: Dr. Bud Menjivar Medications: See Med Rec Scheduled Atorvastatin Calcium (Lipitor), 1 TAB PO DAILY, (Reported) Calcium & Phosphorus W/ Vitami (Calcium), 1 TAB PO DAILY, (Reported) Gabapentin (Gabapentin), 1 CAP PO BID, (Reported) Hydralazine Hcl (Hydralazine Hcl), 1 TAB PO BID, (Reported) Levothyroxine Sodium (Synthroid), 1 TAB PO DAILY, (Reported) Lidocaine (Lidocaine), 1 PATCH TOP DAILY, (Reported) Metoprolol Succinate (Metoprolol Succinate Er), 1 TAB PO DAILY, (Reported) Multiple Vitamins W/ Minerals (Preservision Areds), 1 DROP EACHEYE DAILY, (Reported) Potassium Chloride (Potassium Chloride ER), 10 MEQ PO DAILY, (Reported) Ramipril (Ramipril), 1 CAP PO DAILY, (Reported) Scheduled PRN Cyclobenzaprine HCl (Cyclobenzaprine Hydrochlo), 0.5 TAB PO QHSP PRN for LOW BACK PAIN, (Reported) Discharge Statement: "Patient was advised to return to the ER or call 911 if any headaches, dizziness, shortness of breath, chest pain, abdominal pain, bleeding, fevers, or worsening of medical condition. Patient was counseled about treatment plan, medications, possible side effects, patientverbalized understanding. All questions were answered to the best of my ability. This discharge took greater then 30 minutes in planning, reviewing documentation, counseling the patient, and discussing with other team members." ASSESSMENT ASSESSMENT Assessment Acute metabolic encephalopathy, resolved Uncontrolled hypertension Hypokalemia AASHISH most likely vasomotor nephropathy Recent T12 compression fracture Chronic back pain Recent UTI with ESBL Type 2 diabetes Morbid obesity Hypothyroidism Hypertension Date of Service: Mar 05, 2025 Billing Provider: TRINA JIMENEZ MD Common Visit Codes: [id number] DISCH DAY >30min TRINA JIMENEZ MD Mar 05, 2025 11:40
[2025-03-05 13:00] VITALS: BP 139/81; PULSE 71; RESP 18; TEMP 98.1; O2SAT 95
--- NOTE | 2025-03-05 13:00 | ECG ---
[facility] Test Date: 2025-02-28 Test Time: 19:50:42 Pat Name: ANGELA COLE Department: Room: 0207T A Gender: F [employer]: : 1940 Requested By: CLAU PRETTY Order Number: [id number] Reading MD: Measurements Intervals [place] Rate: 77 P: 0 AK: 54 QRS: 239 QRSD: 130 T: 73 QT: 412 QTc: 467 Interpretive Statements Atrial-ventricular dual-paced rhythm No further analysis attempted due to paced rhythm Artifact in lead(s) I,II,III,aVR,aVL,aVF Please click the below link to view image of tracing.
[2025-03-05] MEDS: POTASSIUM CHL 20 Meq TABLET PO ONE (13:22)
[2025-03-05] MEDS: MAGNESIUM SULFATE 1GM/100ML 100 ML IV SCH (13:22)
== END 2025-03-05 14:35 | DRG 91 ==
LOC: ER 19:42 → EDBD 19:42 → EDUNIT# 19:42 → OVERFLOW 03-01 02:49 → TELE-CENTR 03-03 23:35
PROVIDERS: ADMIT Internal Medicine Geriatric Medicine; ATTEND Internal Medicine Geriatric Medicine
DX: G92.8 Other toxic encephalopathy (principal); N17.0 Acute kidney failure with tubular necrosis; I50.32 Chronic diastolic (congestive) heart failure; M48.54XA Collapsed vertebra, not elsewhere classified, thoracic region, initial encounter for fracture; E87.1 Hypo-osmolality and hyponatremia; Z20.822 Contact with and (suspected) exposure to COVID-19; I11.0 Hypertensive heart disease with heart failure; E11.9 Type 2 diabetes mellitus without complications; E03.9 Hypothyroidism, unspecified; E66.01 Morbid (severe) obesity due to excess calories; E87.6 Hypokalemia; E86.0 Dehydration; E83.42 Hypomagnesemia; E78.5 Hyperlipidemia, unspecified; G89.29 Other chronic pain; Z87.440 Personal history of urinary (tract) infections; Z68.28 Body mass index [BMI] 28.0-28.9, adult
CPT/HCPCS: 36415; 70450; 71045; 80048; 80053; 80061; 80307; 80320; 81001; 82962; 83036; 83605; 83735; 84443; 85025; 87040; 87086; 87088; 87426; 93005; 96360; 97110; 97116; 97163; G0378; J1815; J2003; J3480

== ENCOUNTER 2025-05-25 09:43 | Outpatient (CLI) | payer MEDICARE, OTHER ==
[~2025-05-25 09:43] MED LIST changes: -CEPH250C PO; -GABA-1250 PO; -LEVO112T4 PO; -TRAM-626 PO
[2025-05-25 10:00] VITALS: BP 131/59; PULSE 64; RESP 16; O2SAT 97
[2025-05-25 10:20] VITALS: BP 136/60; PULSE 65; RESP 16; O2SAT 97
[2025-05-25] MEDS ORDERED: METF-370 PO (11:05)
[2025-05-25] MEDS ORDERED: ASPI-543 PO (11:05)
[2025-05-25] MEDS ORDERED: CLON0.1T PO (11:05)
[2025-05-25] MEDS ORDERED: POTA-220 PO (13:14)
[2025-05-25] MEDS ORDERED: BUMEX2MG PO (13:14)
== END 2025-05-25 17:00 | disposition home or self-care (01) ==
LOC: CHF HDHVI 09:43
PROVIDERS: ATTEND Internal Medicine Cardiovascular Disease
DX: Z01.810 Encounter for preprocedural cardiovascular examination (principal); Z45.018 Encounter for adjustment and management of other part of cardiac pacemaker
CPT/HCPCS: 93005; G0463

== ENCOUNTER 2025-05-28 06:39 | Day surgery (SDC) | payer MEDICARE, OTHER ==
[2025-05-25 13:15] LABS: Hematocrit 39.0 % (36.0-46.0); Hemoglobin 13.2 g/dL (12.2-16.2); Mean Corpuscular Hemoglobin 33.9 pg (28.0-32.0); Mean Corpuscular Volume 100.4 fL (80.0-100.0); Nucleated Red Blood Cells % 0.2 %
[2025-05-25 13:28] LABS: INR 1.14 (0.9-1.15); Partial Thromboplastin Time 25.6 SEC (24.5-34.5); Prothrombin Time 11.9 sec (9.3-11.8)
[2025-05-25 14:48] LABS: Anion Gap 14 (5-15); Carbon Dioxide 23 mmol/L (20-31); Chloride 100 mmol/L (98-107); Potassium 3.7 mmol/L (3.5-5.1); Sodium 137 mmol/L (136-145)
[2025-05-25 14:50] LABS: Calcium 9.3 mg/dL (8.7-10.4)
[2025-05-25 14:55] LABS: BUN/Creatinine Ratio 13.3 (10.0-20.0)
[2025-05-25 14:58] LABS: Blood Urea Nitrogen 24 mg/dL (9-23); Glucose 126 mg/dL (74-106)
[~2025-05-28] VITALS: Ht 170.2 cm; Wt 74.4 kg
[2025-05-28] VITALS (7 sets, daily range): BP systolic 139–150; BP diastolic 41–63; PULSE 65–76; RESP 14–20; TEMP 97.5; O2SAT 94–96
[~2025-05-28 06:39] MED LIST changes: +ASPI-543 PO; +BUMEX2MG PO; +CLON0.1T PO; +METF-370 PO; +POTA-220 PO; -POTA-228 PO; -RAMI10CA38 PO
[2025-05-28] MEDS: ceFAZolin 1GM/50ML 50 ML IV ONE ×2 (08:07→08:18)
[2025-05-28] MEDS: VANCOMYCIN HCL 1000 MG VL ONE (08:07)
[2025-05-28] MEDS: LIDOCAINE 2%HCL (LOCAL ANESTH.) INJ 20ML MDV ONE (08:07)
[2025-05-28] MEDS: MIDAZOLAM HCL 2MG/2ML 2ml VIAL (1mg/ml) ONE (08:19)
[2025-05-28] MEDS: fentaNYL CITRATE 100 MCG/2 ML VL ONE (08:19)
--- NOTE | 2025-05-28 09:30 | DVHHP ---
ADMIT DATE: 05/28/2025 HISTORY OF PRESENT ILLNESS: The patient who has sick sinus syndrome, had a permanent pacemaker implanted more than 10 years ago. It is a Medtronic device on the right side since the patient is left-handed. PAST MEDICAL HISTORY: Pertinent medical history is significant for hypertension, hyperlipidemia, history of coronary artery disease, history of diabetes with diabetic neuropathy, vasculopathy, nephropathy. CURRENT MEDICATIONS: Include aspirin, atorvastatin, metoprolol, metformin, clonidine, and hydralazine. SOCIAL HISTORY: She denies any history of tobacco use. FAMILY HISTORY: There is a strong family history of coronary artery disease. Both brother and father had congestive heart failure and hypertension. REVIEW OF SYSTEMS: The patient denies any history of any peripheral vascular disease. No history of CVA. No history of any seizure disorder. No current chronic lung disease such as COPD. No substance abuse such as alcohol or tobacco. Denies any history of myocardial infarction in the past. Denies any history of any renal insufficiency as well. No abdominal history as well. No history of irritable bowel syndrome or inflammatory bowel disease. No mixed connective tissue disease such as lupus or rheumatoid arthritis. PHYSICAL EXAMINATION: VITAL SIGNS: Blood pressure is 134/80, pulse of 70, O2 saturation 96% on 2 liters. HEENT: Pupils are reactive. Funduscopic exam is negative for any papilledema. No AV nicking. No exudates. Sclerae anicteric. Extraocular muscles are intact. NECK: No JVD appreciated. Carotid pulses are 2+ and symmetrical. Normal upstroke and contour. No cervical adenopathy. No cervical lymphadenopathy. No nuchal rigidity appreciated. PULMONARY: Clear to auscultation in all lung hunt. Tympanic to percussion. CARDIOVASCULAR: Regular rate. PMI is not displaced. ABDOMEN: Soft, nontender. Normal bowel sounds. Stool guaiac negative. NEUROLOGIC: The patient is intact as well. DTRs are 2+ and symmetrical. Cranial nerves 2-12 are within normal limits. ASSESSMENT AND PLAN: Thus, the patient with a sick sinus syndrome, permanent pacemaker implanted 10 years ago at an outside facility. It is a Medtronic device, now to undergo permanent pacemaker generator change since it is end-of-life. Howard Marie MD SA/MILAGRO TID: [id number] RECEIPT: [id number]
--- NOTE | 2025-05-28 09:40 | DVHOP ---
DATE OF SURGERY: 05/28/2025 PROCEDURE TO BE PERFORMED: * Explantation of dual chamber permanent pacemaker. * Implantation of new dual chamber permanent pacemaker by chronic device. PROCEDURE: The patient was prepped and draped in sterile condition. 1% Xylocaine was used to anesthetize the right subcuticular region. Using a 10-blade linear incision was made using blunt dissection electrocautery. The old generator was exposed and was replaced with a new generator. Pocket was then irrigated with vancomycin saline solution. The pocket was then closed using 3-0 Monoderm subcutaneous sutures followed by 3-0 Monoderm subcuticular sutures. There were no complications. The patient tolerated the procedure well. RESULTS: The patient had Biotronik dual chamber permanent pacemaker generator change. The old generator explanted was a Medtronic device Sensia DR serial number [id number]. Serial number is [id number]. The previous one was model number. New device implant is Ambiah DRD/T model number 192949, serial number [id number]. Threshold parameters: P wave amplitude of 1.8 mV, threshold of 1.8 V at 0.4 ms pulse duration pacing impedance of 547 ohms. Right ventricular lead RVF amplitude of 4.1 mV, threshold of 0.5 V at 0.4 ms pulse duration, pacing impedance of 703 ohms. CONCLUSION: The patient has successful explantation of dual chamber permanent pacemaker, Medtronic implantation, new dual chamber permanent pacemaker, [employer]. Howard Marie MD SA/JOSE ROBERTO TID: [id number] RECEIPT: [id number]
--- NOTE | 2025-05-28 12:13 | DVHDS ---
DATE OF DISCHARGE: 05/28/2025 The patient has sick sinus syndrome, underwent successful dual chamber AICD generator change without any complication. The patient is stable at the time of discharge. DISPOSITION: Home. ACTIVITY: As instructed. DIET: 2 g sodium diet. Follow up with me in 1 week. If she develops any complications such as fever, chills, dehiscence of the wound, hematoma, chest pain, she is to contact me and come to the emergency room. Howard Marie MD SA/GISSELLE TID: [id number] RECEIPT: [id number]
== END 2025-05-28 11:10 | disposition home or self-care (01) ==
LOC: CATH 06:39
PROVIDERS: ATTEND Internal Medicine Cardiovascular Disease
DX: Z45.010 Encounter for checking and testing of cardiac pacemaker pulse generator [battery] (principal); I49.5 Sick sinus syndrome; I11.0 Hypertensive heart disease with heart failure; I50.9 Heart failure, unspecified; E78.5 Hyperlipidemia, unspecified; E11.21 Type 2 diabetes mellitus with diabetic nephropathy; E11.40 Type 2 diabetes mellitus with diabetic neuropathy, unspecified; Z79.82 Long term (current) use of aspirin; Z79.84 Long term (current) use of oral hypoglycemic drugs; Z79.899 Other long term (current) drug therapy; Z90.710 Acquired absence of both cervix and uterus; Z86.718 Personal history of other venous thrombosis and embolism; Z98.890 Other specified postprocedural states; Z83.3 Family history of diabetes mellitus; Z80.0 Family history of malignant neoplasm of digestive organs; Z82.49 Family history of ischemic heart disease and other diseases of the circulatory system
CPT/HCPCS: 33228; C1785; J0690; J2250; J3010; J3373; J7040; 36415; 80048; 85025; 85610; 85730; 92972; 92973; 93454; 93571; 99152; 99153; C9600

== ENCOUNTER 2025-06-05 09:53 | Outpatient (CLI) | payer MEDICARE, OTHER ==
[2025-06-05 10:00] VITALS: BP 149/61; PULSE 65; RESP 16; O2SAT 95
[2025-06-05] MEDS: BACITRACIN TOP OINT 1 UD PKG TOP ONE ×2 (10:45→10:55)
== END 2025-06-05 17:00 | disposition home or self-care (01) ==
LOC: CHF HDHVI 09:53
PROVIDERS: ATTEND Internal Medicine Cardiovascular Disease
DX: Z48.00 Encounter for change or removal of nonsurgical wound dressing (principal)
CPT/HCPCS: G0463